=== PATIENT | female | born 1980 | race Caucasian/White ===

== ENCOUNTER → 2018-01-25 09:16 | Outpatient (CLI) | payer OTHER, SELFPAY ==
[2018-01-25 10:13] LABS: Absolute Lymphocyte Count 1.45 X10^3/ul (0.83-4.51); Absolute Neutrophil Count 5.6 X10^3/uL (2.0-7.7); Basophil# 0.05 X10^3/uL; Basophil% 0.6 % (0-1); Eosinophil# 0.17 X10^3/uL; Eosinophils% 2.1 % (0-5); Hematocrit 41.3 % (37-47); Hemoglobin 13.2 g/dl (12.0-15.0); Lymphocyte # 1.45 X10^3/ul (4.0); Lymphocyte % 18.2 % (19-41); Mean Corpuscular Hgb 29.1 pg (27.0-32.0); Mean Corpuscular Volume 91.2 fL (81-99); Mean Platelet Vol. 8.9 fl (6.2-12.0); Monocyte# 0.67 X10^3/uL; Monocyte% 8.4 % (0-10); Neutrophil % 70.6 % (47-70); POSITIVE COUNT NO; POSITIVE DIFFERENTIAL NO; POSITIVE MORPHOLOGY NO; Platelet Count 258 K/mm3 (150-450); RBC Distribution Width CV 12.9 % (11.6-14.6); RBC Distribution Width SD 42.9 fl (35.1-43.9); Red Blood Count 4.53 M/mm3 (4.2-5.4)
[2018-01-25 10:21] LABS: Hemoglobin A1c 5.2 % (4.2-6.3)
[2018-01-25 10:47] LABS: ALB/GLOB Ratio 1.1 RATIO (0.9-2.4); AST(SGOT) 20 U/L (15-37); Alanine Aminotransfer ALT/SGPT 23 U/L (13-56); Albumin, Serum 3.7 g/dL (3.2-5.0); Alkaline Phosphatase 73 U/L (45-117); Anion Gap 5 (5-15); BUN 12 mg/dL (7-18); BUN/Creat Ratio 16.1 RATIO (10-20); Calcium,Total 8.5 mg/dL (8.5-10.1); Chloride 107 mmol/L (98-107); Creatinine, Serum 0.75 mg/dL (0.55-1.02); EST Glomerular Filtration Rate 93 mL/min (>60); Est Glom Filt Rate - Afr Amer 112 mL/min (>60); Globulin 3.5 g/dL (2.2-4.2); Glucose 97 mg/dL (74-106); Potassium 3.6 mmol/L (3.5-5.1); Protein, Total 7.2 g/dL (6.4-8.2); Sodium Level 140 mmol/L (136-145); T4 Free Direct 1.16 ng/dL (0.76-1.46)
[2018-01-31 11:11] LABS: Thyroglobulin RIA 4.6 ng/mL (.); Thyroid Peroxidase AB 62 IU/mL (0-34)
== END ==
PROVIDERS: Family Provider Family Medicine; PCP Family Medicine; Visit Provider Family Medicine
DX: E03.9 Hypothyroidism, unspecified (principal); E28.2 Polycystic ovarian syndrome
CPT/HCPCS: 36415; 80053; 83036; 84432; 84439; 84443; 85025; 86376; 86800

== ENCOUNTER → 2018-02-02 07:57 | Outpatient (CLI) | payer OTHER, SELFPAY ==
--- NOTE | 2018-02-02 08:00 | RAD_ITS ---
STUDY: X-RAY - CERVICAL SPINE REASON FOR EXAM: Female, 37 years old. Neck pain and stiffness. TECHNIQUE: 5 view(s) of the cervical spine were obtained including oblique views. COMPARISON: None FINDINGS: Normal anterior atlantoaxial articulation. Normal odontoid process. There is straightening of the normal cervical lordosis. Normal vertebral bodies and endplates. Normal disc space heights. Normal visualized intervertebral neuroforamina. The soft tissue structures are unremarkable. RAD/Cerv Spine 4 or 5 Views IMPRESSION: Straightening of the normal cervical lordosis. Electronically Signed: Ibrahima Rae MD at 13:34 EDT Tel [phone], Service support ,
== END ==
PROVIDERS: Family Provider Family Medicine; PCP Family Medicine; Visit Provider Family Medicine
DX: M54.12 Radiculopathy, cervical region (principal)
CPT/HCPCS: 72050

== ENCOUNTER → 2018-06-18 08:55 | Outpatient (CLI) | payer OTHER, SELFPAY ==
--- NOTE | 2018-06-18 08:57 | BI_ITS ---
MAMMOGRAPHY - BILATERAL DIAGNOSTIC REASON FOR EXAM: Female, 38 years old. History of left breast lumps. PERTINENT HISTORY: Aunt with breast cancer. TECHNIQUE: Digital bilateral breast west (3D mammographic acquisition) in the CC and MLO projections. 2-D mediolateral oblique (MLO) and craniocaudad (CC) views of both breasts were obtained. CAD: Full Field Digital Mammography with Computer Added Detection was performed. COMPARISON: Comparison is made with prior examination dated June 22, 2017. FINDINGS: Breast Composition: The breasts are extremely dense, which lowers the sensitivity of mammography. There are no dominant masses or suspicious calcifications. No other significant abnormalities are identified. There has been no significant change since the prior study. BI/DIAG MAMM W/CAD, BILAT IMPRESSION: Stable bilateral diagnostic mammogram. With the patient's history of palpable abnormalities in the left breast, correlation with ultrasound is recommended. ASSESSMENT CATEGORY: BIRADS Category 0: Incomplete. Need additional imaging evaluation. A letter regarding these results will be sent to the patient by the facility within 30 days. Approximately 10% of breast cancers are not detected by mammography. A normal mammogram should not delay biopsy of a clinically suspicious abnormality. Electronically Signed: Ibrahima Rae MD at 10:34 EDT Tel [phone], Service support ,
--- NOTE | 2018-06-18 08:58 | US_ITS ---
STUDY: ULTRASOUND BREAST - LEFT REASON FOR EXAM: Female, 38 years old. Palpable lump left breast. TECHNIQUE: Axial and longitudinal images of the LEFT breast were performed with a high resolution ultrasound transducer. COMPARISON: Comparison is made with prior mammogram done earlier today. FINDINGS: LEFT Breast: There is a 4 mm x 4 mm x 12 mm cyst at the 1:00 position of the breast at 3 cm from the nipple. This also evidence of a 3 mm x 3 mm x 2 mm cyst at the 4:00 position of the breast at 2 cm from the nipple. Mildly dilated subareolar ducts. US/Breast Complete Unilateral IMPRESSION: Small cysts are seen in the breast as described. Mildly dilated subareolar ducts. ASSESSMENT CATEGORY: BIRADS Category 2: Benign. A letter regarding these results will be sent to the patient by the facility within 30 days. Electronically Signed: Ibrahima Rae MD at 10:11 EDT Tel [phone], Service support ,
== END ==
PROVIDERS: Family Provider Family Medicine; PCP Family Medicine; Referring Provider Family Medicine; Visit Provider Family Medicine
DX: R92.8 Other abnormal and inconclusive findings on diagnostic imaging of breast (principal)
CPT/HCPCS: 76641; 77062; 77066; G0279

== ENCOUNTER → 2018-06-20 12:29 | Outpatient (CLI) | payer OTHER, SELFPAY ==
--- NOTE | 2018-06-20 12:32 | US_ITS ---
STUDY: THYROID ULTRASOUND REASON FOR EXAM: Female, 38 years old. Abnormal labs. TECHNIQUE: Ultrasound evaluation of the thyroid was performed with real-time and static garcia-scale imaging. COMPARISON: None. FINDINGS: RIGHT LOBE: The right lobe of the thyroid gland measures 5.1 x 1.0 x 1.7 cm. There is a heterogeneous echotexture. There are no demonstrated solid, cystic or complex lesions. LEFT LOBE: The left lobe of the thyroid gland measures 3.8 x 1.3 x 1.2 cm. There is a heterogeneous echotexture. There are no demonstrated solid, cystic or complex lesions. ISTHMUS: The isthmus measures 3 mm . The regional lymph nodes are normal. US/Thyroid IMPRESSION: Heterogeneous thyroid gland with enlargement of the right lobe. No definite nodule identified. Findings suggestive of multinodular goiter. Electronically Signed: Leobardo Vasquez MD at 7:28 EDT , Service support ,
== END ==
PROVIDERS: Family Provider Family Medicine; PCP Family Medicine; Referring Provider Obstetrics & Gynecology Reproductive Endocrinology; Visit Provider Obstetrics & Gynecology Reproductive Endocrinology
DX: E04.1 Nontoxic single thyroid nodule (principal)
CPT/HCPCS: 76536

== ENCOUNTER → 2018-08-14 09:13 | Outpatient (CLI) | payer OTHER, SELFPAY ==
[2018-08-14 11:20] LABS: Thyroid Stim Hormone (TSH) 2.05 uIU/mL (0.358-3.74)
--- OUTSIDE RECORDS SUMMARY | 2018-09-25 22:28 | XMS RPT_ITS ---
:1980 Author Organization [facility] Care Team Providers Name Role Phone Beni Saxena Attending Unavailable Beni Saxean Primary Care Unavailable Beni Saxena Primary Care Unavailable ALANIS CALLEJAS Consulting Unavailable TREVOR YANG Attending Unavailable TREVOR YANG Referring Unavailable Beni Saxena Attending Unavailable Beni Sxaena Referring Unavailable Beni Saxena Primary Care Unavailable Beni Saxena Attending Unavailable Beni Saxena Referring Unavailable Beni Saxena Primary Care Unavailable Beni Saxena Attending Unavailable Beni Saxena Primary Care Unavailable PROBLEMS PROBLEMS DATE TYPE CONDITION / CODE ATTENDING STATUS SOURCE 02/02/2018 Unknown M54.12 - Beni Saxena Active [facility] Radiculopathy, [facility] / M54.12(ICD-10) Repository PROCEDURES PROCEDURES No Procedure Records FoundRESULTS RESULTS THYROID STIM HORMONE Collected: 08/14/2018 Status: F Source: [place] (TSH) 9:14 AM [facility] TYPE CODE TESTS RESULT OUT OF RANGE REFERENCE UNITS LAB L501.9520 0.358-3.74 uIU/mL Normal TSH 2.05 Performed By: #### L501.9520 #### [facility] [address] [facility] [place], [address] THYROID Observed: 06/20/2018 Status: F Source: [place] 12:32 PM [facility] [place] Imaging Services [address] [place] [address] Thyroid MR#: [id number] Acct: [id number] Name: IBAN RIDER Rep #: [id number] : 1980 F 38 From: Leobardo Vasquez PCP: Beni Saxena MD Status: REG CLI Study: Thyroid Date of Exam: 06/20/18 Exam# [id number] Ordering Dr: SHERIN YANG STUDY: THYROID ULTRASOUND REASON FOR EXAM: Female, 38 years old. Abnormal labs. TECHNIQUE: Ultrasound evaluation of the thyroid was performed with real-time and static garcia-scale imaging. COMPARISON: None. FINDINGS: RIGHT LOBE: The right lobe of the thyroid gland measures 5.1 x 1.0 x 1.7 cm. There is a heterogeneous echotexture. There are no demonstrated solid, cystic or complex lesions. LEFT LOBE: The left lobe of the thyroid gland measures 3.8 x 1.3 x 1.2 cm. There is a heterogeneous echotexture. There are no demonstrated solid, cystic or complex lesions. ISTHMUS: The isthmus measures 3 mm . The regional lymph nodes are normal. US/Thyroid IMPRESSION: Heterogeneous thyroid gland with enlargement of the right lobe. No definite nodule identified. Findings suggestive of multinodular goiter. Electronically Signed: Leobardo Vasquez MD at 7:28 EDT , Service support , CC: Beni Saxena MD; SHERIN YANG Assisted Living Associate: Signed BREAST COMPLETE Observed: 06/18/2018 Status: F Source: [place] UNILATERAL 8:59 AM [facility] [place] Imaging Services [address] [place] [address] Breast Complete Unilateral MR#: [id number] Acct: [id number] Name: IBAN RIDER Rep #: [id number] : 1980 F 38 From: Ibrahima Rae MD PCP: Beni Saxena MD Status: REG CLI Study: Breast Complete Unilateral Date of Exam: 06/18/18 Exam# [id number] Ordering Dr: Beni Saxena MD STUDY: ULTRASOUND BREAST - LEFT REASON FOR EXAM: Female, 38 years old. Palpable lump left breast. TECHNIQUE: Axial and longitudinal images of the LEFT breast were performed with a high resolution ultrasound transducer. COMPARISON: Comparison is made with prior mammogram done earlier today. FINDINGS: LEFT Breast: There is a 4 mm x 4 mm x 12 mm cyst at the 1:00 position of the breast at 3 cm from the nipple. This also evidence of a 3 mm x 3 mm x 2 mm cyst at the 4:00 position of the breast at 2 cm from the nipple. Mildly dilated subareolar ducts. US/Breast Complete Unilateral IMPRESSION: Small cysts are seen in the breast as described. Mildly dilated subareolar ducts. ASSESSMENT CATEGORY: BIRADS Category 2: Benign. A letter regarding these results will be sent to the patient by the facility within 30 days. Electronically Signed: Ibrahima Rae MD at 10:11 EDT Tel [phone], Service support , CC: Beni Saxena MD Assisted Living Associate: Signed DIAG MAMM W/CAD, Observed: 06/18/2018 Status: F Source: [facility] [place] 8:59 AM [facility] [place] [address] [place] [address] DIAG MAMM W/CAD, BILAT MR#: [id number] Acct: [id number] Name: IBAN RIDER Rep #: [id number] : 1980 F 38 From: Ibrahima Rae MD PCP: Beni Saxena MD Status: REG CLI Study: DIAG MAMM W/CAD, BILAT Date of Exam: 06/18/18 Exam# [id number] Ordering Dr: Beni Saxena MD MAMMOGRAPHY - BILATERAL DIAGNOSTIC REASON FOR EXAM: Female, 38 years old. History of left breast lumps. PERTINENT HISTORY: Aunt with breast cancer. TECHNIQUE: Digital bilateral breast west (3D mammographic acquisition) in the CC and MLO projections. 2-D mediolateral oblique (MLO) and craniocaudad (CC) views of both breasts were obtained. CAD: Full Field Digital Mammography with Computer Added Detection was performed. COMPARISON: Comparison is made with prior examination dated June 22, 2017. FINDINGS: Breast Composition: The breasts are extremely dense, which lowers the sensitivity of mammography. There are no dominant masses or suspicious calcifications. No other significant abnormalities are identified. There has been no significant change since the prior study. BI/DIAG MAMM W/CAD, BILAT IMPRESSION: Stable bilateral diagnostic mammogram. With the patient's history of palpable abnormalities in the left breast, correlation with ultrasound is recommended. ASSESSMENT CATEGORY: BIRADS Category 0: Incomplete. Need additional imaging evaluation. A letter regarding these results will be sent to the patient by the facility within 30 days. Approximately 10% of breast cancers are not detected by mammography. A normal mammogram should not delay biopsy of a clinically suspicious abnormality. Electronically Signed: Ibrahima Rae MD at 10:34 EDT Tel [phone], Service support , CC: Beni Saxena MD Assisted Living Associate: Signed CERV SPINE 4 OR 5 Observed: 02/02/2018 Status: F Source: [facility] V[facility] 8:00 AM [facility] [place] Imaging Services [address] [place] [address] Cerv Spine 4 or 5 Views MR#: [id number] Acct: [id number] Name: IBAN RIDER Rep #: [id number] : 1980 F 37 From: Ibrahima Rae MD PCP: Beni Saxena MD Status: REG CLI Study: Cerv Spine 4 or 5 Views Date of Exam: 02/02/18 Exam# [id number] Ordering Dr: Beni Saxena MD STUDY: X-RAY - CERVICAL SPINE REASON FOR EXAM: Female, 37 years old. Neck pain and stiffness. TECHNIQUE: 5 view(s) of the cervical spine were obtained including oblique views. COMPARISON: None FINDINGS: Normal anterior atlantoaxial articulation. Normal odontoid process. There is straightening of the normal cervical lordosis. Normal vertebral bodies and endplates. Normal disc space heights. Normal visualized intervertebral neuroforamina. The soft tissue structures are unremarkable. RAD/Cerv Spine 4 or 5 Views IMPRESSION: Straightening of the normal cervical lordosis. Electronically Signed: Ibrahima Rae MD at 13:34 EDT Tel [phone], Service support , CC: Beni Saxena MD Assisted Living Associate: Signed CBC W/DIFF, AUTOMATED Collected: 01/25/2018 Status: F Source: [place] 9:22 AM [facility] [place] Order Comment: Order Date: 01/25/18 Order Info: 0184-1 - CBCD TYPE CODE TESTS RESULT OUT OF RANGE REFERENCE UNITS LAB L100.1000 4.4-11.0 K/mm3 Normal WBC 8.0 LAB L100.1200 4.2-5.4 M/mm3 Normal RBC 4.53 LAB L100.1300 12.0-15.0 g/dl Normal HGB 13.2 LAB L100.1400 37-47 % Normal HCT 41.3 LAB L100.1500 81-99 fL Normal MCV 91.2 LAB L100.1600 27.0-32.0 pg Normal MCH 29.1 LAB L100.1700 32-36 g/gl Normal MCHC 32.0 LAB L100.1810 11.6-14.6 % Normal RDW CV 12.9 LAB L100.1820 35.1-43.9 fl Normal RDW SD 42.9 LAB L100.1900 150-450 K/mm3 Normal PLT 258 LAB L100.2000 6.2-12.0 fl Normal MPV 8.9 LAB L100.2100 47-70 % High NEUT% 70.6 LAB L100.2200 19-41 % Low LY% 18.2 LAB L100.2300 0-10 % Normal MONO% 8.4 LAB L100.2400 0-5 % Normal EO% 2.1 LAB L100.2500 0-1 % Normal BASO% 0.6 LAB L100.2550 0.0-0.9 % Normal IM GRAN % 0.100 Result Comment: IG% - Immature Granulocytes (promyelocytes, myelocytes and metamyelocytes) > 1% indicates that a LEFT SHIFT is Present. LAB L100.2620 2.0-7.7 X10 3/uL Normal Absolute Neut 5.6 LAB L100.2720 0.83-4.51 X10 3/ul Normal Absolute Lymph 1.45 Performed By: #### L100.0100, L501.9985, L500.4050, L501.9520, L506.0400 #### [facility] [address] [place], [address] HEMOGLOBIN A1C Collected: 01/25/2018 Status: F Source: [facility] 9:22 AM [facility] [place] Order Comment: Order Date: 01/25/18 Order Info: 4548-4 - A1C TYPE CODE TESTS RESULT OUT OF RANGE REFERENCE UNITS LAB L501.9985 4.2-6.3 % Normal HGB A1C 5.2 Performed By: #### L100.0100, L501.9985, L500.4050, L501.9520, L506.0400 #### [facility] [address] [place], [address] COMPREHENSIVE METABOLIC Collected: 01/25/2018 Status: F Source: [facility] 9:22 AM [facility] [place] Order Comment: Order Date: 01/25/18 Order Info: [id number] - CMP Order Info: 3016-3 - TSH Order Info: 3024-7 - T4F TYPE CODE TESTS RESULT OUT OF RANGE REFERENCE UNITS LAB L501.0100 74-106 mg/dL Normal GLU 97 Result Comment: Please note revised GLUCOSE reference range effective 2017. LAB L501.1000 7-18 mg/dL Normal BUN 12 LAB L501.1100 0.55-1.02 mg/dL Normal CREAT,SERUM 0.75 Result Comment: The validity of the calculated GFR AND GFRAA in patients over 70 years has not been determined. Clinical correlation is essential. LAB L501.1110 >60 mL/min Normal EST GFR 93 Result Comment: Non- GFR Calc LAB L501.1115 >60 mL/min Normal EST GFR - AA 112 Result Comment: GFR Calc LAB L501.1300 10-20 RATIO Normal BUN/CRE 16.1 LAB L501.1500 6.4-8.2 g/dL T Normal PROT 7.2 LAB L501.1800 3.2-5.0 g/dL Normal ALB 3.7 LAB L501.1950 2.2-4.2 g/dL Normal GLOB 3.5 LAB L501.2000 0.9-2.4 RATIO Normal A/G 1.1 LAB L501.2200 8.5-10.1 mg/dL CA Normal 8.5 LAB L501.4100 15-37 U/L Normal AST 20 LAB L501.4305 45-117 U/L Normal ALK P 73 LAB L501.4405 13-56 U/L Normal ALT 23 LAB L501.4600 0.20-1.00 mg/dL T Normal BILI 0.60 LAB L501.5300 136-145 mmol/L NA Normal 140 LAB L501.5600 3.5-5.1 mmol/L K Normal 3.6 LAB L501.5900 98-107 mmol/L CL Normal 107 LAB L501.6100 21.0-32.0 mmol/L Normal CO2 28.0 LAB L501.6200 5-15 Normal GAP 5 Performed By: #### L100.0100, L501.9985, L500.4050, L501.9520, L506.0400 #### [facility] [address] [place], [place], [address] THYROID STIM HORMONE Collected: 01/25/2018 Status: F Source: [place] (TSH) 9:22 AM [facility] Order Comment: Order Date: 01/25/18 Order Info: [id number] - CMP Order Info: 3016-3 - TSH Order Info: 3024-7 - T4F TYPE CODE TESTS RESULT OUT OF RANGE REFERENCE UNITS LAB L501.9520 0.358-3.74 uIU/mL Normal TSH 1.60 Performed By: #### L100.0100, L501.9985, L500.4050, L501.9520, L506.0400 #### [facility] [address] [place], [place], [address] T4 FREE DIRECT Collected: 01/25/2018 Status: F Source: [place] 9:22 AM [facility] Order Comment: Order Date: 01/25/18 Order Info: 0786-1 - CMP Order Info: 3016-3 - TSH Order Info: 3024-7 - T4F TYPE CODE TESTS RESULT OUT OF RANGE REFERENCE UNITS LAB L506.0400 0.76-1.46 ng/dL Normal T4 FREE 1.16 DIRECT Performed By: #### L100.0100, L501.9985, L500.4050, L501.9520, L506.0400 #### [facility] [place], [address] THYROGLOBULIN W/ANTI-TG Collected: 01/25/2018 Status: F Source: [place] [place] 9:22 AM [facility] [place] TYPE CODE TESTS RESULT OUT OF RANGE REFERENCE UNITS LAB L3300.7025 0.0-0.9 IU/mL High ANTI-TG 5.0 AB Result Comment: Thyroglobulin Antibody measured by [facility] [employer] LAB L3300.7030 . ng/mL Normal TG-NALINI 4.6 Result Comment: Reference Range: Pubertal Children and Adults: <40 According to the National Academy of Clinical Biochemistry, the reference interval for Thyroglobulin (TG) should be related to euthyroid patients and not for patients who underwent thyroidectomy. TG reference intervals for these patients depend on the residual mass of the thyroid tissue left after surgery. Establishing a post-operative baseline is recommended. The assay quantitation limit is 2.0 ng/mL. Performed By: #### L3300.6820, L3300.6900 #### [facility] (refer to report for specific site) refer to report for address and phone number THYROID PEROXIDASE AB Collected: 01/25/2018 Status: F Source: [place] 9:22 AM [facility] [place] TYPE CODE TESTS RESULT OUT OF RANGE REFERENCE UNITS LAB L3300.6900 0-34 IU/mL High TPO AB 62 [phone] Result Comment: Performed at: CB - [facility] [address] [id number] Proctologist: Chuy Young PhD, Phone: [phone] Performed at: [facility] [address] [place] [phone] Proctologist: Keith Ramirez MD, Phone: [phone] Performed By: #### L3300.6820, L3300.6900 #### [facility] (refer to report for specific site) refer to report for address and phone number PROGRESS Observed: 01/15/2018 Status: COMPLETED Source: [place] 8:29 AM [facility] HNO ID: [id number] Author: Mike Newton Service: (none) Author Type: Physician Type: Progress Notes Filed: 01/15/2018 8:36 AM Note Text: Patient here for follow up and to discuss labs. U/S showed normal size ovaries with multiple cysts. DHEA-S 322. Prolactin and TSH normal. Assessment - PCOS with elevated DHEA-S Plan - appointment with Dr. Yang. Mike Newton MD CNOV Observed: 01/15/2018 Status: COMPLETED Source: [place] 8:00 AM [facility] REPOSITORY Office Visit ([place]) IBAN RIDER ([id number]) 1980 F Date Time Provider Department 01/15/18 8:00 AM MIKE NEWTON During your visit today, we recorded the following information about you: Temperature Pulse Blood pressure Weight 97.8 degrees 48/minute 96/48 49.9 kg Height Last Period 1.6 m 01/11/18 Mike Newton MD 01/15/2018 8:36 AM Signed Patient here for follow up and to discuss labs. U/S showed normal size ovaries with multiple cysts. DHEA-S 322. Prolactin and TSH normal. Assessment - PCOS with elevated DHEA-S Plan - appointment with Dr. Yang. Mike Newton MD Referring Provider: SELF [200] Allergies As of Date: 01/15/2018 Noted Allergy Reaction AMOXICILLIN 01/28/2013 2 - Rash Date Reviewed: 01/15/2018 Reviewed by: Mike Newton - Fully Assessed Reason for Visit: Follow Up [171] Cmt: Pt presents for follow up to discuss her test results. Primary Visit Diagnosis:PCOS (polycystic ovarian syndrome) [E28.2] Prescriptions as of 01/15/2018 Sig: NAPROXEN 375 MG TABLET Take 375 mg by mouth as neede* CYCLOBENZAPRINE 10 MG TABLET Take 10 mg by mouth once ron* CENTRUM ULTRA WOMEN'S ORAL Take by mouth once daily. PRESERVISION AREDS ORAL Take by mouth as needed. CHOLECALCIFEROL (VITAMIN D3) * Take by mouth. CALCIUM ORAL Take by mouth. MAGNESIUM SULFATE 100 MG CAPS* Take by mouth. LORAZEPAM 0.5 MG TABLET Take by mouth three times da* LEVOTHYROXINE 75 MCG TABLET Take 75 mcg by mouth once palma* Problem List As Of Date 01/15/2018 Noted Resolved Hypothyroid [E03.9] INVALID FOR* Hirsutism [L68.0] INVALID FOR* Acne [L70.9] INVALID FOR* Breast mass [N63.0] INVALID FOR*06/17/2014 Lump or mass in breast [N63.0] INVALID FOR*06/17/2014 Vitamin D deficiency [E55.9] INVALID FOR* Left breast mass [N63.20] INVALID FOR* Medications Discontinued During This Encounter levothyroxine (SYNTHROID) 75 mcg tab* 06/08/2017 01/15/2018 Class: Historical Med Route: ORAL Sig: Take 75 mcg by mouth once daily. Disc: Reason for discontinue is not on file. LORazepam (ATIVAN) 0.5 mg tab 11/11/2016 01/15/2018 Class: Historical Med Route: ORAL Sig: Take 0.5 mg by mouth. Disc: Reason for discontinue is not on file. Follow-up and Disposition History Recorded Encounter Status:Closed by MIKE NEWTON MD on 01/15/18 US FEMALE PELVIS Observed: 01/05/2018 Status: F Source: [facility] COMPLE[facility] 8:56 AM HEALTH SYSTEM REPOSITORY Performed at [facility] APPROVED BY: Janny Emerson MD EXAMINATION: TRANSVAGINAL AND LIMITED TRANSABDOMINAL PELVIC ULTRASOUND HISTORY: Patient being evaluated for possible polycystic ovary syndrome. TECHNIQUE: Sonography of the pelvis was performed by transvaginal and transabdominal (limited) techniques. Images were obtained and stored in a permanent archive. MQ: UFP_1 COMPARISON: None RESULT: Uterus size: 8.0 x 5.0 x 5.0 cm -Orientation: Retroflexed -Myometrium: Normal sonographic appearance. -Endometrial echo complex: 1.5 cm -Cervix: normal Right ovary: 4.1 x 2.9 x 2.2 cm Left ovary: 4.4 x 2.6 x 1.9 cm Both ovaries demonstrate multiple small follicles throughout. The finding is nonspecific but can be seen in the setting of polycystic ovary syndrome. Free fluid: No significant. IMPRESSION: Multiple small follicles noted in both ovaries. Given the overall appearance, although not diagnostic, this can be seen in the setting of polycystic ovaries. Correlate clinically. Retroflexed uterus. Pelvis free fluid: IMPRESSION: NORMAL SONOGRAPHIC APPEARANCE OF THE FEMALE PELVIS. US TRANSVAGINAL Observed: 01/05/2018 Status: F Source: [facility] 8:56 AM HEALTH SYSTEM REPOSITORY Performed at [facility] APPROVED BY: Janny Emerson MD EXAMINATION: TRANSVAGINAL AND LIMITED TRANSABDOMINAL PELVIC ULTRASOUND HISTORY: Patient being evaluated for possible polycystic ovary syndrome. TECHNIQUE: Sonography of the pelvis was performed by transvaginal and transabdominal (limited) techniques. Images were obtained and stored in a permanent archive. MQ: UFP_1 COMPARISON: None RESULT: Uterus size: 8.0 x 5.0 x 5.0 cm -Orientation: Retroflexed -Myometrium: Normal sonographic appearance. -Endometrial echo complex: 1.5 cm -Cervix: normal Right ovary: 4.1 x 2.9 x 2.2 cm Left ovary: 4.4 x 2.6 x 1.9 cm Both ovaries demonstrate multiple small follicles throughout. The finding is nonspecific but can be seen in the setting of polycystic ovary syndrome. Free fluid: No significant. IMPRESSION: Multiple small follicles noted in both ovaries. Given the overall appearance, although not diagnostic, this can be seen in the setting of polycystic ovaries. Correlate clinically. Retroflexed uterus. Pelvis free fluid: IMPRESSION: NORMAL SONOGRAPHIC APPEARANCE OF THE FEMALE PELVIS. PROGRESS Observed: 01/01/2018 Status: COMPLETED Source: [place] 10:29 AM [facility] HNO ID: [id number] Author: Mike Newton Service: (none) Author Type: Physician Type: Progress Notes Filed: 01/01/2018 10:32 AM Note Text: Patient here for one episode of intermenstrual spotting. Prolactin - normal. DHEA still elevated at 322. TSH - normal. Pap normal except for BV. Discussed results with patient. 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 Mike Newton MD CNOV Observed: 01/01/2018 Status: COMPLETED Source: [place] 9:45 AM [facility] REPOS[facility]ORY Office Visit ([place]) IBAN RIDER ([id number]) 1980 F Date Time Provider Department 01/01/18 9:45 AM MIKE NEWTON During your visit today, we recorded the following information about you: Temperature Pulse Blood pressure Weight 97.3 degrees 57/minute 103/65 49.9 kg Height 1.6 m Mike Newton MD 01/01/2018 10:32 AM Signed Patient here for one episode of intermenstrual spotting. Prolactin - normal. DHEA still elevated at 322. TSH - normal. Pap normal except for BV. Discussed results with patient. 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 Mike Newton MD Referring Provider: SELF [200] Allergies As of Date: 01/01/2018 Noted Allergy Reaction AMOXICILLIN 01/28/2013 2 - Rash Date Reviewed: 01/01/2018 Reviewed by: Mike Newton - Fully Assessed Reason for Visit: Follow Up [171] Cmt: possible vaginal spotting. Spotting started Monday and has been sporadic since.. Primary Visit Diagnosis:History of PCOS [Z87.42] Order(s):US FEMALE PELVIS TRANSABD COMPLETE [4407016] Order #: [id number] FUTURE Prescriptions as of 01/01/2018 Sig: NAPROXEN 375 MG TABLET Take 375 mg by mouth as neede* CYCLOBENZAPRINE 10 MG TABLET Take 10 mg by mouth once ron* CENTRUM ULTRA WOMEN'S ORAL Take by mouth once daily. PRESERVISION AREDS ORAL Take by mouth as needed. CHOLECALCIFEROL (VITAMIN D3) * Take by mouth. CALCIUM ORAL Take by mouth. MAGNESIUM SULFATE 100 MG CAPS* Take by mouth. LORAZEPAM 0.5 MG TABLET Take by mouth three times da* LEVOTHYROXINE 75 MCG TABLET Take 75 mcg by mouth once palma* Problem List As Of Date 01/01/2018 Noted Resolved Hypothyroid [E03.9] INVALID FOR* Hirsutism [L68.0] INVALID FOR* Acne [L70.9] INVALID FOR* Breast mass [N63.0] INVALID FOR*06/17/2014 Lump or mass in breast [N63.0] INVALID FOR*06/17/2014 Vitamin D deficiency [E55.9] INVALID FOR* Left breast mass [N63.20] INVALID FOR* Follow-up and Disposition History Recorded Encounter Status:Closed by MIKE NEWTON MD on 01/01/18 PROLACTIN Collected: 12/25/2017 Status: F Source: [facility] 9:52 AM HEALTH SYSTEM REPOSITORY TYPE CODE TESTS RESULT OUT OF REFERENCE UNITS RANGE LAB PROL2(LOIN ng/mL C) Prolactin 12.2 Result Comment: Non 2.8 to 29.2 9.7 to 208.5 Postmenopausal 1.8 to 20.3 Males: 2.1 to 17.7 Performed By: #### PROL2 #### [place] [address] DHEA-S Collected: 12/25/2017 Status: F Source: [facility] 9:52 AM HEALTH SYSTEM REPOSITORY TYPE CODE TESTS RESULT OUT OF RANGE REFERENCE UNITS LAB DHESX(LOINC ) DHEA-S SEE BELOW Result Comment: DHEA-S 322.3 60.9-337.0 ug/dL Reference ranges are age and gender specific. For additional information, reference range tables can be found in the laboratory test directory. The normal values are based on the following source: Dehydroepiandrosterone sulfate (DHEA S) [package insert V 17.0 Setswana]. [facility], [place], [place]: April 2013. Performing Laboratory: [facility] [address] [place] [address] Performed By: #### DHESX #### [place] [address] TSH Collected: 12/25/2017 Status: F Source: [facility] 9:51 AM HEALTH SYSTEM REPOSITORY TYPE CODE TESTS RESULT OUT OF RANGE REFERENCE UNITS LAB LTSH(LOINC) 0.34-4.82 uIU/mL TSH 1.39 Performed By: #### LTSH #### [place] [address] HISTORY PHYSICAL Observed: 12/25/2017 Status: COMPLETED Source: [place] 9:10 AM [facility] REPOSITORY HNO ID: [id number] Author: Mike Lu Pap Service: (none) Author Type: Physician Type: HANDP Filed: 12/25/2017 9:19 AM Note Text: Iban Rider is a 37 year old female here for a well woman exam. . Thinking of donor insemination for . Not sexually active at present. PMHx of PCO, hirsutism, galactorrhea, elevated prolactin and DHEA is past. On synthroid. Periods regular every month. Long discussion regarding these issues and possibility of donor insemination for . At present, will repeat DHEA, TSH and prolactin. Patient to start BBT and return to office in 2 months to discuss. PMH - breast biopsy - benign. Had ultrasound in June which showed stable cysts left breast. Due for repeat in June. ALLERGIES Allergen Reactions - Amoxicillin Rash Current Outpatient Prescriptions: MULTIVITAMIN/IRON/FOLIC ACID (CENTRUM ULTRA WOMEN'S ORAL) Take by mouth once daily. VIT A/VIT C/VIT E/ZINC/COPPER (PRESERVISION AREDS ORAL) Take by mouth as needed. Cholecalciferol, Vitamin D3, 2,000 unit cap Take by mouth. CALCIUM ORAL Take by mouth. magnesium sulfate 100 mg cap Take by mouth. LORazepam (ATIVAN) 0.5 mg tab Take by mouth three times daily as needed. levothyroxine (LEVOTHROID) 75 mcg tablet Take 75 mcg by mouth once daily. No current facility-administered medications for this visit. 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 [employer] Social History Main Topics Smoking status: Never Smoker Smokeless status: Never Used Alcohol use: No Drug use: No Sexual activity: No Other Topics Concern Self-Exams Yes FAMILY HISTORY Problem Relation Age of Onset - Thyroid Paternal Aunt - Ischemic Heart Disease Father - Hypertension Father - Lipids Father - Cancer Paternal Grandfather prostate - Cancer Paternal Uncle skin - Breast Cancer Maternal Grandmother - Breast Cancer Sister Review of Symptoms General - well developed, well nourished female in no acute distress 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 Physical Exam General: Well nourished, well developed with no obvious deformities.Ge HEENT: Without thyromegaly. Cardiovascular: Rate regular without murmur. Pulmonary: Clear GI: No palpable hepatosplenomegaly Breast: Right - without masses - left dense with cystic changes LUQ unchanged according to patient GERIATRIC NURSING ASSISTANT: Vulva - normal, hirsutism noted, Vagina - normal, Pap done, uterus midplane, normal size, adnexa neg. ASSESSMENT/PLAN: 1. Women's annual routine gynecological examination - ICD9: V72.31, ICD10: Z01.419 (primary diagnosis) - Completed pelvic and breast exam - Encouraged monthly BSE - Follow up for annual exam in one year. 2. Galactorrhea of both breasts - ICD9: 611.6, ICD10: N64.3 - PROLACTIN BLD 3. History of PCOS - ICD9: V13.29, ICD10: Z87.42 - DHEA-S BLD 4. Hypothyroidism, acquired - ICD9: 244.9, ICD10: E03.9 - Instructed patient on importance of taking on an empty stomach either first thing in the morning or at bedtime. - TSH BLD 5. Hirsutism - ICD9: 704.1, ICD10: L68.0 DHEA 6. Fibrocystic breast changes, left - ICD9: 610.1, ICD10: N60.12 7. Encounter for Papanicolaou smear for cervical cancer screening - ICD9: V76.2, ICD10: Z12.4 - Completed pelvic and breast exam - Encouraged monthly BSE - Follow up for annual exam in one year. - PAP, CYTO GERIATRIC NURSING ASSISTANT Mike Newton MD CNOV Observed: 12/25/2017 Status: COMPLETED Source: [facility] 8:15 AM [facility] REPOSITORY Office Visit ([place]) IBAN RIDER ([id number]) 1980 F Date Time Provider Department 12/25/17 8:15 AM MIKE NEWTON During your visit today, we recorded the following information about you: Temperature Pulse Blood pressure Weight 97.9 degrees 55/minute 105/65 49.9 kg Height Last Period 1.6 m 12/11/17 Mike Newton MD 12/25/2017 9:19 AM Signed Iban Rider is a 37 year old female here for a well woman exam. . Thinking of donor insemination for . Not sexually active at present. PMHx of PCO, hirsutism, galactorrhea, elevated prolactin and DHEA is past. On synthroid. Periods regular every month. Long discussion regarding these issues and possibility of donor insemination for . At present, will repeat DHEA, TSH and prolactin. Patient to start BBT and return to office in 2 months to discuss. PMH - breast biopsy - benign. Had ultrasound in June which showed stable cysts left breast. Due for repeat in June. ALLERGIES Allergen Reactions - Amoxicillin Rash Current Outpatient Prescriptions: MULTIVITAMIN/IRON/FOLIC ACID (CENTRUM ULTRA WOMEN'S ORAL) Take by mouth once daily. VIT A/VIT C/VIT E/ZINC/COPPER (PRESERVISION AREDS ORAL) Take by mouth as needed. Cholecalciferol, Vitamin D3, 2,000 unit cap Take by mouth. CALCIUM ORAL Take by mouth. magnesium sulfate 100 mg cap Take by mouth. LORazepam (ATIVAN) 0.5 mg tab Take by mouth three times daily as needed. levothyroxine (LEVOTHROID) 75 mcg tablet Take 75 mcg by mouth once daily. No current facility-administered medications for this visit. 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 [employer] Social History Main Topics Smoking status: Never Smoker Smokeless status: Never Used Alcohol use: No Drug use: No Sexual activity: No Other Topics Concern Self-Exams Yes FAMILY HISTORY Problem Relation Age of Onset - Thyroid Paternal Aunt - Ischemic Heart Disease Father - Hypertension Father - Lipids Father - Cancer Paternal Grandfather prostate - Cancer Paternal Uncle skin - Breast Cancer Maternal Grandmother - Breast Cancer Sister Review of Symptoms General - well developed, well nourished female in no acute distress GERIATRIC NURSING ASSISTANT - Periods regular every month with pain, no dyspareunia OBSTETRICAL - 0 Para 0 - no dysuria, frequency, stress or urgency incontinence Objective BP 105/65 Pulse 55 Temp (Src) 97.9 (Oral) Ht 5' 3ANDquot; (1.60m) Wt 110 lb (49.9kg) SpO2 99% LMP 12/11/2017 BMI 19.49 kg/(m2). Physical Exam General: Well nourished, well developed with no obvious deformities.Ge HEENT: Without thyromegaly. Cardiovascular: Rate regular without murmur. Pulmonary: Clear GI: No palpable hepatosplenomegaly Breast: Right - without masses - left dense with cystic changes LUQ unchanged according to patient GERIATRIC NURSING ASSISTANT: Vulva - normal, hirsutism noted, Vagina - normal, Pap done, uterus midplane, normal size, adnexa neg. ASSESSMENT/PLAN: 1. Women's annual routine gynecological examination - ICD9: V72.31, ICD10: Z01.419 (primary diagnosis) - Completed pelvic and breast exam - Encouraged monthly BSE - Follow up for annual exam in one year. 2. Galactorrhea of both breasts - ICD9: 611.6, ICD10: N64.3 - PROLACTIN BLD 3. History of PCOS - ICD9: V13.29, ICD10: Z87.42 - DHEA-S BLD 4. Hypothyroidism, acquired - ICD9: 244.9, ICD10: E03.9 - Instructed patient on importance of taking on an empty stomach either first thing in the morning or at bedtime. - TSH BLD 5. Hirsutism - ICD9: 704.1, ICD10: L68.0 DHEA 6. Fibrocystic breast changes, left - ICD9: 610.1, ICD10: N60.12 7. Encounter for Papanicolaou smear for cervical cancer screening - ICD9: V76.2, ICD10: Z12.4 - Completed pelvic and breast exam - Encouraged monthly BSE - Follow up for annual exam in one year. - PAP, CYTO GERIATRIC NURSING ASSISTANT Mike Newton MD Referring Provider: SELF [[id number]] Allergies As of Date: 12/25/2017 Noted Allergy Reaction AMOXICILLIN 01/28/2013 2 - Rash Date Reviewed: 12/25/2017 Reviewed by: Mike Newton - Fully Assessed Reason for Visit: New Patient [172] Cmt: Pt presents for an annual exam. She says that she has felt some lumps in her left breast. Primary Visit Diagnosis:Women's annual routine gynecological examination [Z01.419] Other Visit Diagnoses:Galactorrhea of both breasts [N64.3] History of PCOS [Z87.42] Hypothyroidism, acquired [E03.9] Hirsutism [L68.0] Fibrocystic breast changes, left [N60.12] Encounter for Papanicolaou smear for cervical cancer screening [Z12.4] Order(s):PROLACTIN BLD [SQPROL] Order #: [id number] FUTURE DHEA-S BLD [SQDHEAS] Order #: [id number] FUTURE TSH BLD [SQTSH] Order #: [id number] FUTURE PAP, CYTO GERIATRIC NURSING ASSISTANT [[id number]] Order #: [id number] Prescriptions as of 12/25/2017 Sig: CENTRUM ULTRA WOMEN'S ORAL Take by mouth once daily. PRESERVISION AREDS ORAL Take by mouth as needed. CHOLECALCIFEROL (VITAMIN D3) * Take by mouth. CALCIUM ORAL Take by mouth. MAGNESIUM SULFATE 100 MG CAPS* Take by mouth. LORAZEPAM 0.5 MG TABLET Take by mouth three times da* LEVOTHYROXINE 75 MCG TABLET Take 75 mcg by mouth once palma* Problem List As Of Date 12/25/2017 Noted Resolved Hypothyroid [E03.9] INVALID FOR* Hirsutism [L68.0] INVALID FOR* Acne [L70.9] INVALID FOR* Breast mass [N63.0] INVALID FOR*06/17/2014 Lump or mass in breast [N63.0] INVALID FOR*06/17/2014 Vitamin D deficiency [E55.9] INVALID FOR* Left breast mass [N63.20] INVALID FOR* Disposition: Return in about 2 months (around 02/24/2018). Follow-up and Disposition History Recorded Encounter Status:Closed by MIKE NEWTON MD on 12/25/17 PAP,CYTO GERIATRIC NURSING ASSISTANT Observed: 12/25/2017 Status: F Source: [facility] 12:00 AM [facility] RE[facility]ITORY Test performed at [place] [address] NAME: IBAN RIDER REQUESTING: MIKE NEWTON MD SPECIMEN: TP CX REFLEX TO HPV ASCUS/ANDI Relevant History: LMP: 12/11/2017 SPECIMEN ADEQUACY SATISFACTORY FOR EVALUATION. ENDOCERVICAL/TRANSFORMATION ZONE COMPONENTS ABSENT. GENERAL CATEGORIZATION NEGATIVE FOR INTRAEPITHELIAL LESION OR MALIGNANCY. INTERPRETATION/RESULT SHIFT IN RUPERTO SUGGESTIVE OF BACTERIAL VAGINOSIS. Electronically signed: 12/28/2017 Screened by: VEGA TAPIA(ASCP) Signed Out by: VEGA TAPIA(ASCP) The Pap test serves as a screening tool for early detection of cervical cancer. The Pap test does not represent a final diagnostic test for cervical cancer. Furthermore, the Pap test was not designed to screen for other malignancies (endometrial, ovarian cancer, etc....). False negatives and false positives have occurred. If clinically indicated, further patient evaluation is recommended. Printed on: December 28, 2017 Page 1 of 1 Performed By: #### CYTOP #### [place] [address] ALLERGIES ALLERGIES No Allergies Records FoundENCOUNTERS ENCOUNTERS ADMIT/DISCHARGE ACCOUNT ADMITTING ENCOUNTER LOCATION SOURCE NUMBER CLASS 08/14/2018 [id number] Ambulatory [place] [facility] ing:MFPLAB Repository 06/20/2018 [id number] [place] [facility] ing:US Repository 06/18/2018 [id number] Ambulatory [place] 6 [facility] ing:OPBI Repository 02/02/2018 [id number] Ambulatory [facility] [facility] ing:HPRAD Repository 01/25/2018 [id number] Ambulatory Brand[place] [facility] ing:MFPLAB Repository PAYERS PAYERS ENCOUNTER GUARANTOR PAYER SUBSCRIBER SOURCE 08/14/2018 IBAN Reese Primary IBAN Gipson [id number] Insurance:CARESOURCE CIOLEKDOB: [address] [facility] [id number] Number: Repository [id number]: [phone] [id number] [phone] (HP) Date:[id number] [address] [address]PU: 08/14/2018 Secondary NOT GIVENUNK Brandan Insurance:SELF PAY [facility] Number: Effective Repository Date:2018-08-14 06/20/2018 IBAN Reese [facility] IBAN Gipson [id number] Insurance:CARESOURCE CIOLEKDOB: Community [address] JUST FOR [facility] [id number] Number: Repository [id number]: [phone] [id number] [phone] (HP) Date:[id number] [address] [address]MF: 06/20/2018 Secondary NOT GIVENUNK Brandan Insurance:SELF PAY [facility] Number: Effective Repository Date:2018-06-19 06/18/2018 IBAN Reese [facility] IBAN Gipson [id number] Insurance:CARESOURCE CIOLEKDOB: [address] JUST FOR [facility] [id number] Number: Repository [id number]: [phone] [id number] [phone] (HP) Date:[id number] [address] [address]UK: 06/18/2018 Secondary NOT GIVENUNK Brandan Insurance[facility]: Effective Repository Date:2018-05-03 02/02/2018 IBAN Reese [facility] IBAN Gipson [id number] Insurance:CARESOURCE CIOLEKDOB: [address] JUST [facility] [id number] [address] Number: Repository [id number]: [phone] [id number] [phone] () Date:[id number] [address] [place] [id number]: 02/02/2018 Secondary NOT GIVENUNK Brandan Insurance:SELF PAY [facility] Number: Effective Repository Date:2018-02-01 01/25/2018 Iban Reese [facility] Iban Gipson [id number] Insurance:CARESOURCE CiolekDOB: Community [address] JUST [facility] [id number] [address] Number: Repository [id number]: [phone] [id number] [phone] () Date:[id number] [address] [place] [address]JJ: 01/25/2018 Secondary NOT GIVENUNK Brandan Insurance:SELF PAY [facility] Number: Effective Repository Date:2018-01-25
== END ==
PROVIDERS: Family Provider Family Medicine; PCP Family Medicine; Visit Provider Family Medicine
DX: Z00.00 Encounter for general adult medical examination without abnormal findings (principal)
CPT/HCPCS: 36415; 84443

== ENCOUNTER → 2018-11-26 14:00 | Outpatient (CLI) | payer OTHER, SELFPAY ==
--- NOTE | 2018-11-26 14:03 | BI_ITS ---
MAMMOGRAPHY - BILATERAL DIAGNOSTIC REASON FOR EXAM: Female, 38 years old. History of bilateral breast lumps. PERTINENT HISTORY: Aunt with breast cancer. TECHNIQUE: Digital bilateral breast west (3D mammographic acquisition) in the CC and MLO projections. 2-D mediolateral oblique (MLO) and craniocaudad (CC) views of both breasts were obtained. CAD: Full Field Digital Mammography with Computer Added Detection was performed. COMPARISON: Comparison is made with prior mammogram dated June 18, 2018. FINDINGS: Breast Composition: The breasts are extremely dense, which lowers the sensitivity of mammography. There are no dominant masses or suspicious calcifications. No other significant abnormalities are identified. There has been no significant change since the prior study. BI/DIAG MAMM W/CAD, BILAT IMPRESSION: Stable bilateral diagnostic mammogram. With the patient's history of bilateral breast lumps, correlation with ultrasound is recommended. ASSESSMENT CATEGORY: BIRADS Category 0: Incomplete. Need additional imaging evaluation. A letter regarding these results will be sent to the patient by the facility within 30 days. Approximately 10% of breast cancers are not detected by mammography. A normal mammogram should not delay biopsy of a clinically suspicious abnormality. Electronically Signed: Ibrahima Rae, at 8:47 EDT , Service support ,
--- NOTE | 2018-11-26 14:33 | US_ITS ---
STUDY: ULTRASOUND BREAST - RIGHT REASON FOR EXAM: Female, 38 years old. Palpable lump in the right breast. TECHNIQUE: Axial and longitudinal images of the RIGHT breast were performed with a high resolution ultrasound transducer. COMPARISON: Comparison is made with prior mammogram done earlier in the day. FINDINGS: RIGHT Breast: There is evidence of dense fibroglandular tissue. There is a 0.8 cm x 1.2 cm x 0.5 cm cyst at the 2:00 position breast at 3 cm from the nipple. A thin septation is seen within. There is also evidence of a 0.9 cm x 1.1 cm x 0.3 cm cyst at the 12:00 position of breast at 1 cm from nipple. Low-level echoes are seen within the. This may represent a hemorrhagic cyst. IMPRESSION: 2 cysts are seen as described. Routine mammographic follow-up is recommended. ASSESSMENT CATEGORY: BIRADS Category 2: Benign. A letter regarding these results will be sent to the patient by the facility within 30 days. Electronically Signed: Ibrahima Butch, at 8:49 EDT , Service support , STUDY: ULTRASOUND BREAST - LEFT REASON FOR EXAM: Female, 38 years old. Palpable lump left breast. TECHNIQUE: Axial and longitudinal images of the LEFT breast were performed with a high resolution ultrasound transducer. COMPARISON: Comparison is made with prior mammogram done earlier in the day as well as prior ultrasound of the left breast dated June 18, 2018. FINDINGS: LEFT Breast: This is a 4 mm x 4 mm x 2 mm cyst at the 4:00 position of breast at 2 cm from nipple. This is unchanged. There is also evidence of dilated subareolar ducts. US/Breast Limited Unilateral IMPRESSION: 4 mm x 4 mm x 2 mm cyst at the 4:00 position the breast at 2 sons from nipple. This is unchanged. Mildly dilated subareolar ducts. ASSESSMENT CATEGORY: BIRADS Category 2: Benign. A letter regarding these results will be sent to the patient by the facility within 30 days. Electronically Signed: Ibrahima Rae, at 8:50 EDT , Service support ,
== END ==
PROVIDERS: Family Provider Family Medicine; PCP Family Medicine; Referring Provider Family Medicine; Visit Provider Family Medicine
DX: N63.11 Unspecified lump in the right breast, upper outer quadrant (principal)
CPT/HCPCS: 76642; 77062; 77066; G0279

== ENCOUNTER → 2019-02-12 08:52 | Outpatient (CLI) | payer OTHER, SELFPAY ==
[2019-02-12 10:52] LABS: Thyroid Stim Hormone (TSH) 1.76 uIU/mL (0.358-3.74)
== END ==
PROVIDERS: Family Provider Family Medicine; PCP Family Medicine; Referring Provider Family Medicine; Visit Provider Family Medicine
DX: E03.8 Other specified hypothyroidism (principal)
CPT/HCPCS: 36415; 84439; 84443

== ENCOUNTER → 2019-08-29 09:03 | Outpatient (CLI) | payer OTHER, SELFPAY ==
[2019-08-29 11:04] LABS: T4 Free Direct 1.23 ng/dL (0.76-1.46)
== END ==
PROVIDERS: Family Provider Family Medicine; PCP Family Medicine; Referring Provider Family Medicine; Visit Provider Family Medicine
DX: E03.8 Other specified hypothyroidism (principal)
CPT/HCPCS: 36415; 84439; 84443

== ENCOUNTER → 2019-12-30 09:01 | Outpatient (CLI) | payer OTHER, SELFPAY ==
[2019-12-30 09:59] LABS: Absolute Lymphocyte Count 2.58 X10^3/uL (0.83-4.51); Absolute Neutrophil Count 3.1 X10^3/uL (2.0-7.7); Basophil# 0.09 X10^3/uL; Basophil% 1.3 % (0-1); Eosinophil# 0.14 X10^3/uL; Eosinophils% 2.1 % (0-5); Hematocrit 41.2 % (37-47); Hemoglobin 13.2 g/dL (12.0-15.0); Lymphocyte # 2.58 X10^3/ul (4.0); Lymphocyte % 38.6 % (19-41); Mean Corpuscular Hgb 29.7 pg (27.0-32.0); Mean Corpuscular Volume 92.6 fL (81-99); Mean Platelet Vol. 9.6 fl (6.2-12.0); Monocyte# 0.75 X10^3/uL; Monocyte% 11.2 % (0-10); NRBC Flagged by Analyzer 0 % (0-5); Neutrophil % 46.5 % (47-70); Platelet Count 262 K/mm3 (150-450); RBC Distribution Width CV 12.7 % (11.6-14.6); Red Blood Count 4.45 M/mm3 (4.2-5.4); White Blood Count 6.7 K/mm3 (4.4-11.0)
[2019-12-30 10:14] LABS: ALB/GLOB Ratio 1.1 RATIO (0.9-2.4); AST(SGOT) 29 U/L (15-37); Alanine Aminotransfer ALT/SGPT 35 U/L (13-56); Albumin, Serum 3.9 g/dL (3.2-5.0); Alkaline Phosphatase 74 U/L (45-117); Anion Gap 6 (5-15); BUN 13 mg/dL (7-18); BUN/Creat Ratio 18.5 RATIO (10-20); Calcium,Total 8.3 mg/dL (8.5-10.1); Chloride 105 mmol/L (98-107); Cholesterol 124 mg/dL (200); EST Glomerular Filtration Rate 99 mL/min (>60); Est Glom Filt Rate - Afr Amer 119 mL/min (>60); Globulin 3.4 g/dL (2.2-4.2); Glucose 91 mg/dL (74-106); High Density Lipoprotein 57 mg/dL; Potassium 3.5 mmol/L (3.5-5.1); Protein, Total 7.3 g/dL (6.4-8.2); Sodium Level 137 mmol/L (136-145); Thyroid Stim Hormone (TSH) 2.76 uIU/mL (0.358-3.74); Triglycerides 56 mg/dL; Very Low Density Lipoprotein 11 mg/dL (5-40)
== END ==
PROVIDERS: PCP Family Medicine; Referring Provider Family Medicine; Visit Provider Family Medicine
DX: Z00.00 Encounter for general adult medical examination without abnormal findings (principal); E03.9 Hypothyroidism, unspecified
CPT/HCPCS: 36415; 80053; 80061; 84443; 85025

== ENCOUNTER → 2019-12-30 09:20 | Outpatient (CLI) | payer OTHER, SELFPAY ==
--- NOTE | 2019-12-30 09:35 | BI_ITS ---
MAMMOGRAPHY - BILATERAL DIAGNOSTIC REASON FOR EXAM: Female, 39 years old. Left breast lump. PERTINENT HISTORY: Aunt with breast cancer. TECHNIQUE: Digital bilateral breast west (3D mammographic acquisition) in the CC and MLO projections. 2-D mediolateral oblique (MLO) and craniocaudad (CC) views of both breasts were obtained. CAD: Full Field Digital Mammography with Computer Added Detection was performed. COMPARISON: Comparison is made with prior study dated November 26, 2018 June 18, 2018. FINDINGS: Breast Composition: The breasts are extremely dense, which lowers the sensitivity of mammography. There are no dominant masses or suspicious calcifications. No other significant abnormalities are identified. There has been no significant change since the prior study. BI/DIAG MAMM W/CAD, BILAT IMPRESSION: Stable bilateral diagnostic mammogram. With the patient''s history of a palpable lump in the left breast, correlation with ultrasound is recommended. ASSESSMENT CATEGORY: BIRADS Category 0: Incomplete. Need additional imaging evaluation. A letter regarding these results will be sent to the patient by the facility within 30 days. Approximately 10% of breast cancers are not detected by mammography. A normal mammogram should not delay biopsy of a clinically suspicious abnormality. Electronically Signed: Ibrahima Rae, at 12:32 EDT , Service support ,
--- NOTE | 2019-12-30 10:40 | US_ITS ---
STUDY: ULTRASOUND BREAST - LEFT REASON FOR EXAM: Female, 39 years old. Palpable lump left breast. TECHNIQUE: Axial and longitudinal images of the LEFT breast were performed with a high resolution ultrasound transducer. # OF IMAGES: 11 COMPARISON: Comparison is made with prior mammogram done earlier in the day as well as prior ultrasound of the left breast dated November 26, 2018. FINDINGS: LEFT Breast: Stable 4 mm x 5 mm x 2 mm cyst at the 4:00 position of the breast at 2 cm from the nipple. Mild degree of dilated subareolar ducts. US/Breast Limited Unilateral IMPRESSION: 4 mm x 5 mm x 2 mm cyst at the 4:00 position of the breast at 2 cm from nipple. Mildly dilated subareolar ducts. There has been no change. ASSESSMENT CATEGORY: BIRADS Category 2: Benign. A letter regarding these results will be sent to the patient by the facility within 30 days. Electronically Signed: Ibrahima Rae, at 12:24 EDT , Service support ,
== END ==
PROVIDERS: PCP Family Medicine; Referring Provider Family Medicine; Visit Provider Family Medicine
DX: R92.8 Other abnormal and inconclusive findings on diagnostic imaging of breast (principal); Z80.3 Family history of malignant neoplasm of breast
CPT/HCPCS: 76642; 77062; 77066; G0279

== ENCOUNTER → 2020-06-22 08:13 | Outpatient (CLI) | payer OTHER, SELFPAY ==
[2020-06-22 10:22] LABS: T4 Free Direct 1.16 ng/dL (0.76-1.46); Thyroid Stim Hormone (TSH) 2.86 uIU/mL (0.358-3.74)
== END ==
PROVIDERS: PCP Family Medicine; Visit Provider Family Medicine
DX: E03.8 Other specified hypothyroidism (principal)
CPT/HCPCS: 36415; 84439; 84443

== ENCOUNTER → 2020-07-14 15:46 | Outpatient (CLI) | payer OTHER, SELFPAY | PROVIDERS: PCP Family Medicine; Referring Provider Family Medicine; Visit Provider Family Medicine | DX: N39.0 Urinary tract infection, site not specified (principal) | CPT/HCPCS: 87086; 87088 ==

== ENCOUNTER → 2020-09-09 06:39 | Outpatient (CLI) | payer OTHER, SELFPAY ==
--- NOTE | 2020-09-09 06:52 | CT_ITS ---
STUDY: CT ABDOMEN AND PELVIS WITH AND WITHOUT CONTRAST REASON FOR EXAM: Female, 40 years old. Gross hematuria occasionally, ? urocele. Denies pain or urinary problems. No prior surgery. CT Urogram. RADIATION DOSAGE (If Supplied By Facility): CTDIvol = ( 17.26 ) mGy, DLP = ( 1093.87 ) mGycm TECHNIQUE: Transaxial images were obtained from the dome of the diaphragm to the symphysis pubis without oral contrast. IV 100mL Isovue-300 was administered. Sagittal and coronal images were reconstructed. Individualized dose optimization techniques were used for this CT. COMPARISON: None. FINDINGS: The visualized lung bases are unremarkable. The visualized portions of the heart are within normal limits. Normal liver. Normal gallbladder and extrahepatic biliary system. Normal spleen. Normal pancreas. Normal bilateral adrenal glands. Normal right kidney. Normal left kidney. Normal visualized stomach. Normal small intestine. Normal colon. The appendix is visualized and appears normal. Normal abdominal aorta. Normal inferior vena cava. Normal retroperitoneum. Normal urinary bladder. Mildly dilated right ureter down to the urinary bladder. Findings suggestive of a 1.4 cm x 0.4 cm ureterocele of the distal right ureter. There is a 2 cm x 1.8 cm cyst in the right ovary. The uterus is retroverted. The endometrium measures 9.6 mm. Small follicles are seen in the left ovary. There is a small umbilical hernia containing fat. Normal osseous structures. CT/CT Abd/Pelvis W/WO Contrast IMPRESSION: Right ovarian cyst. Mildly dilated right ureter with the findings suggestive of a 1.4 cm x 0.4 cm ureterocele of the distal right ureter Electronically Signed: Ibrahima Rae, at 10:08 EST , Service support ,
[2020-09-09 07:23] LABS: Anion Gap 3 (5-15); BUN 14 mg/dL (7-18); Calcium,Total 8.5 mg/dL (8.5-10.1); Chloride 107 mmol/L (98-107); EST Glomerular Filtration Rate 98 mL/min (>60); Est Glom Filt Rate - Afr Amer 119 mL/min (>60); Glucose 87 mg/dL (74-106); Potassium 3.9 mmol/L (3.5-5.1); Sodium Level 139 mmol/L (136-145)
== END ==
PROVIDERS: PCP Family Medicine
DX: R31.0 Gross hematuria (principal)
CPT/HCPCS: 36415; 74178; 80048; Q9967

== ENCOUNTER → 2020-12-04 08:44 | Outpatient (CLI) | payer OTHER, SELFPAY ==
--- NOTE | 2020-12-04 09:08 | BI_ITS ---
MAMMOGRAPHY - BILATERAL DIAGNOSTIC REASON FOR EXAM: Female, 40 years old. Palpable bilateral breast lumps. PERTINENT HISTORY: Aunt with breast cancer. TECHNIQUE: Digital bilateral breast west (3D mammographic acquisition) in the CC and MLO projections. 2-D mediolateral oblique (MLO) and craniocaudad (CC) views of both breasts were obtained. CAD: Full Field Digital Mammography with Computer Added Detection was performed. COMPARISON: Comparison is made with prior examination dated 12/30/2019 and 11/26/2018. FINDINGS: Breast Composition: The breasts are extremely dense, which lowers the sensitivity of mammography. There are no dominant masses or suspicious calcifications. No other significant abnormalities are identified. There has been no significant change since the prior study. BI/DIAG MAMM W/CAD, BILAT IMPRESSION: Stable bilateral diagnostic mammogram. With the patient''s history of palpable bilateral breast lumps, correlation with ultrasound is recommended. ASSESSMENT CATEGORY: BIRADS Category 0: Incomplete. Need additional imaging evaluation. A letter regarding these results will be sent to the patient by the facility within 30 days. Approximately 10% of breast cancers are not detected by mammography. A normal mammogram should not delay biopsy of a clinically suspicious abnormality. Electronically Signed: Ibrahima Rae MD at 10:17 EDT , Service support ,
--- NOTE | 2020-12-04 10:06 | US_ITS ---
STUDY: ULTRASOUND BREAST - RIGHT REASON FOR EXAM: Female, 40 years old. Palpable lump in the right breast. TECHNIQUE: Axial and longitudinal images of the RIGHT breast were performed with a high resolution ultrasound transducer. # OF IMAGES: 56 COMPARISON: Comparison is made with prior mammogram done earlier in the day as well as prior ultrasound of the right breast dated 11/26/2018. FINDINGS: RIGHT Breast: The mid lateral aspect of the right breast was examined by ultrasound. No sonographic abnormality is seen. IMPRESSION: No sonographic abnormality is seen. ASSESSMENT CATEGORY: BIRADS Category 1: Negative. A letter regarding these results will be sent to the patient by the facility within 30 days. Electronically Signed: Ibrahima Rae MD at 14:59 EDT , Service support , STUDY: ULTRASOUND BREAST - LEFT REASON FOR EXAM: Female, 40 years old. Palpable lump left breast. TECHNIQUE: Axial and longitudinal images of the LEFT breast were performed with a high resolution ultrasound transducer. # OF IMAGES: 56 COMPARISON: Comparison is made with prior mammogram done earlier in the day as well as prior sonogram dated 11/26/2018. FINDINGS: LEFT Breast: There is a 6 mm x 7 mm by 2 mm cyst in the lower outer aspect of the left breast. US/Breast Limited Unilateral IMPRESSION: 6 mm x 7 mm x 2 mm cyst in the lower outer aspect of the left breast. ASSESSMENT CATEGORY: BIRADS Category 2: Benign. A letter regarding these results will be sent to the patient by the facility within 30 days. Electronically Signed: Ibrahima Rae MD at 15:02 EDT , Service support ,
== END ==
PROVIDERS: PCP Family Medicine; Referring Provider Family Medicine; Visit Provider Family Medicine
DX: N63.10 Unspecified lump in the right breast, unspecified quadrant (principal); N60.02 Solitary cyst of left breast; Z80.3 Family history of malignant neoplasm of breast
CPT/HCPCS: 76642; 77062; 77066; G0279

== ENCOUNTER → 2020-12-30 08:56 | Outpatient (CLI) | payer OTHER, SELFPAY ==
[2020-12-30 10:49] LABS: ALB/GLOB Ratio 1.1 RATIO (0.9-2.4); AST(SGOT) 24 U/L (15-37); Alanine Aminotransfer ALT/SGPT 38 U/L (13-56); Albumin, Serum 3.8 g/dL (3.2-5.0); Alkaline Phosphatase 69 U/L (45-117); Anion Gap 3 (5-15); BUN 12 mg/dL (7-18); BUN/Creat Ratio 16.3 RATIO (10-20); Calcium,Total 8.7 mg/dL (8.5-10.1); Chloride 108 mmol/L (98-107); Cholesterol 144 mg/dL (200); Creatinine, Serum 0.74 mg/dL (0.55-1.02); EST Glomerular Filtration Rate 93 mL/min (>60); Est Glom Filt Rate - Afr Amer 112 mL/min (>60); Globulin 3.5 g/dL (2.2-4.2); Glucose 86 mg/dL (74-106); High Density Lipoprotein 68 mg/dL; Potassium 3.8 mmol/L (3.5-5.1); Protein, Total 7.3 g/dL (6.4-8.2); Sodium Level 139 mmol/L (136-145); T4 Free Direct 1.05 ng/dL (0.76-1.46); Thyroid Stim Hormone (TSH) 3.17 uIU/mL (0.358-3.74); Triglycerides 48 mg/dL; Very Low Density Lipoprotein 10 mg/dL (5-40)
== END ==
PROVIDERS: PCP Family Medicine; Referring Provider Family Medicine; Visit Provider Family Medicine
DX: E03.8 Other specified hypothyroidism (principal)
CPT/HCPCS: 36415; 80053; 80061; 84439; 84443

== ENCOUNTER → 2021-03-23 07:58 | Outpatient (CLI) | payer OTHER, SELFPAY ==
--- NOTE | 2021-03-23 08:00 | US_ITS ---
STUDY: RENAL ULTRASOUND - COMPLETE REASON FOR EXAM: Female, 40 years old. RIGHT HYDRONEPHROSIS TECHNIQUE: Ultrasound evaluation of the kidneys was performed with real-time and static cerda-scale imaging. COMPARISON: None. FINDINGS: RIGHT KIDNEY: Normal location of the right kidney, which is normal in size. The right kidney measures 11.7 cm x 4.8 cm x 5.4 cm. There is a normal cortex of the right kidney. The renal cortex measures 2.1 cm. There is no right renal mass or cyst. There are no right renal calculi. There is mild hydronephrosis of the right kidney. DISTAL RIGHT URETER: There is evidence of a 1.4 cm x 2.2 cm x 1.3 cm ureterocele at the right side of the bladder. There is no demonstrated right ureterovesical junction calculus. There is a visualized right ureteral jet. LEFT KIDNEY: Normal location of the left kidney, which is normal in size. The left kidney measures 10.9 cm x 5.2 cm x 5.9 cm. There is a normal cortex of the left kidney. The renal cortex measures 2.1 cm. There is no left renal mass or cyst. There are no left renal calculi. There is no left hydronephrosis. DISTAL LEFT URETER: There is non-visualization of the distal left ureter. There is no demonstrated left ureterovesical junction calculus. There is a visualized left ureteral jet. BLADDER: The distended urinary bladder has a volume of 352 ml. There is a normal wall thickness of the distended urinary bladder. There is no demonstrated mass within the urinary bladder. There are no demonstrated bladder calculi. US/Kidney and Bladder IMPRESSION: Mild right hydronephrosis. There is a 1.4 cm x 2.2 cm x 1.3 cm ureterocele of the distal right ureter at the base of the bladder. Electronically Signed: Ibrahima Rae MD at 11:05 EDT , Service support ,
== END ==
PROVIDERS: PCP Family Medicine
DX: N13.30 Unspecified hydronephrosis (principal)
CPT/HCPCS: 76770

== ENCOUNTER → 2021-06-30 08:14 | Outpatient (CLI) | payer OTHER, SELFPAY ==
[2021-06-30 10:47] LABS: T4 Free Direct 0.99 ng/dL (0.76-1.46); Thyroid Stim Hormone (TSH) 3.31 uIU/mL (0.358-3.74)
== END ==
PROVIDERS: PCP Family Medicine; Referring Provider Family Medicine; Visit Provider Family Medicine
DX: E03.8 Other specified hypothyroidism (principal)
CPT/HCPCS: 36415; 84439; 84443

== ENCOUNTER → 2022-01-05 | Outpatient (CLI) | payer OTHER, SELFPAY ==
[2022-01-05 10:55] LABS: T4 Free Direct 1.07 ng/dL (0.76-1.46); Thyroid Stim Hormone (TSH) 2.24 uIU/mL (0.358-3.74)
== END | disposition home or self-care (01) ==
LOC: MFPLAB 09:10
PROVIDERS: PCP Family Medicine; Referring Provider Family Medicine; Visit Provider Family Medicine
DX: E03.8 Other specified hypothyroidism (principal)
CPT/HCPCS: 36415; 84439; 84443

== ENCOUNTER 2022-03-23 16:29 | Outpatient (CLI) | payer OTHER, SELFPAY ==
--- NOTE | 2022-03-23 16:35 | US_ITS ---
INDICATION: Ureterocele EXAMINATION: US Kidney(s) complete (eg, kidneys and bladder) TECHNIQUE: Staley scale and color doppler images were obtained of the kidneys. COMPARISON: Renal ultrasound from 03/23/2021. FINDINGS: RIGHT KIDNEY: Right kidney measures 11.4 x 3.2 x 5.1 cm cortical thickness of 1.1 cm. There is no hydronephrosis. Mildly ectatic right ureter measuring up to 5 mm diameter proximally. No shadowing calculus, focal lesion or perinephric collection is demonstrated. LEFT KIDNEY: Left kidney measures 11.7 x 5.4 x 5.4 cm with cortical thickness of 1.3 cm. There is no hydronephrosis. Mildly ectatic left ureter measuring up to 5 mm diameter proximally. No shadowing calculus, focal lesion or perinephric collection is demonstrated. URINARY BLADDER: Thin-walled ovoid cystic structure again noted at right UVJ protruding into the bladder lumen, compatible with ureterocele -- stable size measuring 2.1 cm maximum diameter. Bilateral ureteral jets are visualized. No significant urinary bladder wall thickening. Bladder volume 409 mL, with no post void imaging performed. 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 Electronically Signed: Melvin Cook MD at 1:38 EDT ,
== END 2022-03-23 23:59 | disposition home or self-care (01) ==
LOC: US 16:34
PROVIDERS: PCP Family Medicine
DX: N28.89 Other specified disorders of kidney and ureter (principal)
CPT/HCPCS: 76770

== ENCOUNTER → 2022-05-05 | Outpatient (CLI) | payer OTHER, SELFPAY ==
--- NOTE | 2022-05-05 09:37 | BI_ITS ---
MAMMOGRAPHY - BILATERAL DIAGNOSTIC REASON FOR EXAM: Female, 41 years old. One-month history of right breast lump. PERTINENT HISTORY: Aunt with breast cancer. Remote left excisional breast biopsy. TECHNIQUE: Digital bilateral breast west (3D mammographic acquisition) in the CC and MLO projections. 2-D mediolateral oblique (MLO) and craniocaudad (CC) views of both breasts were obtained. CAD: Full Field Digital Mammography with Computer Added Detection was performed. COMPARISON: Comparison is made with prior study dated 10/07/2021 and 12/04/2020. FINDINGS: Breast Composition: The breasts are extremely dense, which lowers the sensitivity of mammography. There are no dominant masses or suspicious calcifications. No other significant abnormalities are identified. There has been no significant change since the prior study. BI/DIAG MAMM W/CAD, BILAT IMPRESSION: Stable bilateral diagnostic mammogram. With the patient''s history of a palpable lump in the right breast, correlation with ultrasound is recommended. ASSESSMENT CATEGORY: BIRADS Category 0: Incomplete. Need additional imaging evaluation. A letter regarding these results will be sent to the patient by the facility within 30 days. Approximately 10% of breast cancers are not detected by mammography. A normal mammogram should not delay biopsy of a clinically suspicious abnormality. Electronically Signed: Ibrahima Rae MD at 10:51 EDT ,
--- NOTE | 2022-05-05 09:39 | US_ITS ---
STUDY: ULTRASOUND BREAST - right REASON FOR EXAM: Female, 41 years old. Right breast lump. TECHNIQUE: Axial and longitudinal images of the RIGHT breast were performed with a high resolution ultrasound transducer. # OF IMAGES: 40 COMPARISON: Comparison is made with prior mammogram done earlier today as well as prior ultrasound of the right breast dated 10/07/2021. FINDINGS: Right Breast: The inferior lateral aspect of the right breast was examined with ultrasound. No sonographic mouth is seen. US/Breast Limited Unilateral IMPRESSION: No sonographic abnormality is seen. ASSESSMENT CATEGORY: BIRADS Category 1: Negative. A letter regarding these results will be sent to the patient by the facility within 30 days. Electronically Signed: Ibrahima Rae MD at 10:56 EDT ,
== END | disposition home or self-care (01) ==
PROVIDERS: PCP Family Medicine; Visit Provider Family Medicine
DX: N63.10 Unspecified lump in the right breast, unspecified quadrant (principal); R92.2 Inconclusive mammogram; Z80.3 Family history of malignant neoplasm of breast
CPT/HCPCS: 76642; 77062; 77066; G0279

== ENCOUNTER → 2022-07-19 | Outpatient (CLI) | payer OTHER, SELFPAY ==
[2022-07-19 17:44] LABS: Basophil% 1.3 % (0-1); Eosinophil# 0.14 X10^3/uL; Eosinophils% 1.8 % (0-5); Hematocrit 41.4 % (37-47); Hemoglobin 13.9 g/dL (12.0-15.0); Lymphocyte % 26.8 % (19-41); Mean Corp Hgb Conc 33.6 g/dL (32-36); Mean Corpuscular Hgb 30.8 pg (27.0-32.0); Mean Corpuscular Volume 91.6 fL (81-99); Mean Platelet Vol. 9.4 fl (6.2-12.0); Monocyte# 0.53 X10^3/uL; Monocyte% 6.8 % (0-10); NRBC Flagged by Analyzer 0 % (0-5); Neutrophil # 4.95 X10^3/uL (2.7-7.7); Platelet Count 294 K/mm3 (150-450); RBC Distribution Width CV 12.6 % (11.6-14.6); RBC Distribution Width SD 42.7 fl (35.1-43.9); Red Blood Count 4.52 M/mm3 (4.2-5.4); White Blood Count 7.8 K/mm3 (4.4-11.0)
[2022-07-19 18:11] LABS: ALB/GLOB Ratio 1.1 RATIO (0.9-2.4); AST(SGOT) 23 U/L (15-37); Alanine Aminotransfer ALT/SGPT 22 U/L (13-56); Albumin, Serum 3.9 g/dL (3.2-5.0); Alkaline Phosphatase 73 U/L (45-117); Anion Gap 6 (5-15); BUN 12 mg/dL (7-18); BUN/Creat Ratio 18.3 RATIO (10-20); Calcium,Total 8.7 mg/dL (8.5-10.1); Chloride 105 mmol/L (98-107); Cholesterol 119 mg/dL (200); Creatinine, Serum 0.65 mg/dL (0.55-1.02); EST Glomerular Filtration Rate 105 mL/min (>60); Est Glom Filt Rate - Afr Amer 128 mL/min (>60); Globulin 3.6 g/dL (2.2-4.2); Glucose 82 mg/dL (74-106); High Density Lipoprotein 57 mg/dL; Potassium 3.8 mmol/L (3.5-5.1); Protein, Total 7.5 g/dL (6.4-8.2); Sodium Level 135 mmol/L (136-145); T4 Free Direct 1.28 ng/dL (0.76-1.46); Thyroid Stim Hormone (TSH) 1.37 uIU/mL (0.358-3.74); Triglycerides 48 mg/dL; Very Low Density Lipoprotein 10 mg/dL (5-40)
== END | disposition home or self-care (01) ==
LOC: MFPLAB 16:17
PROVIDERS: PCP Family Medicine; Referring Provider Family Medicine; Visit Provider Family Medicine
DX: E03.8 Other specified hypothyroidism (principal)
CPT/HCPCS: 36415; 80053; 80061; 84439; 84443; 85025

== ENCOUNTER → 2022-07-27 | Outpatient (CLI) | payer OTHER, SELFPAY ==
--- NOTE | 2022-07-27 18:34 | US_ITS ---
STUDY: THYROID ULTRASOUND REASON FOR EXAM: Female, 42 years old. Hypothyroidism. TECHNIQUE: Ultrasound evaluation of the thyroid was performed with real-time and static garcia-scale imaging. COMPARISON: June 20, 2018. FINDINGS: RIGHT LOBE: The right lobe of the thyroid gland measures 5.1 x 1.6 x 1.5 cm. There is a heterogeneous echotexture. There are no demonstrated solid, cystic or complex lesions. LEFT LOBE: The left lobe of the thyroid gland measures 3.7 x 1.2 x 1.2 cm. There is a heterogeneous echotexture. There are no demonstrated solid, cystic or complex lesions. ISTHMUS: The isthmus measures 2 mm. . The regional lymph nodes are normal. On the prior study the right lobe measured 5.1 and the left lobe 3.8 cm in greatest length. US/Thyroid IMPRESSION: Stable thyroid ultrasound. No thyroid nodules. Enlarged right lobe of the thyroid gland unchanged. Electronically Signed: Leobardo Vasquez MD at 6:14 EST Reading Location ID and State: [id number] / , Service support ,
== END | disposition home or self-care (01) ==
PROVIDERS: PCP Family Medicine; Visit Provider Family Medicine
DX: E03.8 Other specified hypothyroidism (principal)
CPT/HCPCS: 76536

== ENCOUNTER → 2023-01-12 | Outpatient (CLI) | payer OTHER, SELFPAY ==
[2023-01-12 10:42] LABS: ALB/GLOB Ratio 1.1 RATIO (0.9-2.4); AST(SGOT) 22 U/L (15-37); Alanine Aminotransfer ALT/SGPT 23 U/L (13-56); Albumin, Serum 3.8 g/dL (3.2-5.0); Alkaline Phosphatase 71 U/L (45-117); Anion Gap 4 (5-15); BUN 16 mg/dL (7-18); BUN/Creat Ratio 22.9 RATIO (10-20); Calcium,Total 8.7 mg/dL (8.5-10.1); Chloride 107 mmol/L (98-107); EST Glomerular Filtration Rate 97 mL/min (>60); Est Glom Filt Rate - Afr Amer 118 mL/min (>60); Globulin 3.6 g/dL (2.2-4.2); Glucose 81 mg/dL (74-106); Potassium 3.9 mmol/L (3.5-5.1); Protein, Total 7.4 g/dL (6.4-8.2); Sodium Level 136 mmol/L (136-145); T4 Free Direct 1.26 ng/dL (0.76-1.46); Thyroid Stim Hormone (TSH) 3.81 uIU/mL (0.358-3.74)
== END | disposition home or self-care (01) ==
LOC: MTLAB 07:54
PROVIDERS: PCP Family Medicine; Referring Provider Family Medicine; Visit Provider Family Medicine
DX: E03.8 Other specified hypothyroidism (principal)
CPT/HCPCS: 36415; 80053; 84439; 84443

== ENCOUNTER → 2023-02-07 | Outpatient (CLI) | payer OTHER, SELFPAY ==
--- NOTE | 2023-02-07 09:40 | BI_ITS ---
EXAM: Diagnostic bilateral breast mammogram and diagnostic bilateral breast ultrasound REASON FOR EXAM: Female, 42 years old. Complains of bilateral palpable lumps PERTINENT HISTORY: Aunt with breast cancer. Remote left excisional biopsy. TECHNIQUE: Digital bilateral breast west (3D mammographic acquisition) in the CC and MLO projections. 2-D mediolateral oblique (MLO) and craniocaudad (CC) views of both breasts were obtained. CAD: Full Field Digital Mammography with Computer Added Detection was performed. Real-time garcia scale and color sonographic images were obtained of the bilateral outer breasts and bilateral axilla in the clinical area of concern.. COMPARISON: Diagnostic mammogram from 05/05/2022, 10/07/2021.. Diagnostic right breast ultrasound from May 05, 2022. Diagnostic left breast ultrasound from October 07, 2021. FINDINGS: Mammogram findings: Breast Composition: The breasts are extremely dense, which lowers the sensitivity of mammography. There are no dominant masses or suspicious calcifications. No other significant abnormalities are identified. There has been no significant change since the prior study. Ultrasound was obtained for further assessment of both breasts. Ultrasound findings: RIGHT BREAST: The right outer breast from the 6:00 to 10:00 position and the right axilla in the clinical areas of concern were assessed. Normal fibroglandular tissue. No abnormal masses or fluid collections. There are 2 benign-appearing nonenlarged right axillary lymph nodes, the larger of which measures up to 0.5 cm in short axis. LEFT BREAST: The left breast from the 2:00 to 4:00 position and the left axilla in the clinical areas of concern were assessed. There is a 0.9 x 1.1 x 0.5 cm simple-appearing cyst at the 4:00 position, approximately 3 cm posterior to the nipple. This likely corresponds to slight increase in size of the previously seen 0.6 x 0.7 x 0.3 cm cyst in the left breast 3:00 position from October 07, 2021. Benign-appearing nonenlarged left axillary lymph node measures up to 0.5 cm in short axis. No abnormal masses or fluid collections. BI/DIAG MAMM W/CAD, BILAT IMPRESSION: Stable bilateral diagnostic mammogram. 1 year follow-up recommended. No abnormal masses or fluid collections on ultrasound examination of the clinical area of concern in the right breast and right axilla. 0.9 x 1.1 x 0.5 cm simple and benign appearing cyst in the left breast at the 4:00 position has minimally increased in size from 10/07/2021 and likely correlates to patient''s palpable finding. No abnormal masses or fluid collections on ultrasound examination of the clinical area of concern in the left breast and left axilla. ASSESSMENT CATEGORY: BIRADS Category 2: Benign. A letter regarding these results will be sent to the patient by the facility within 30 days. Recommendation: Return to annual screening mammogram. If clinical concerns for enlarging mass or nipple discharge on physical exam, repeat diagnostic ultrasound and mammogram is recommended. Approximately 10% of breast cancers are not detected by mammography. A normal mammogram should not delay biopsy of a clinically suspicious abnormality. Electronically Signed: Moy Abbott MD at 11:39 EDT ,
== END | disposition home or self-care (01) ==
PROVIDERS: PCP Family Medicine; Referring Provider Family Medicine; Visit Provider Family Medicine
DX: N63.0 Unspecified lump in unspecified breast (principal)
CPT/HCPCS: 77062; 77066; G0279

== ENCOUNTER → 2023-02-08 | Outpatient (CLI) | payer OTHER, SELFPAY ==
--- NOTE | 2023-02-08 07:57 | US_ITS ---
EXAM: Diagnostic bilateral breast mammogram and diagnostic bilateral breast ultrasound REASON FOR EXAM: Female, 42 years old. Complains of bilateral palpable lumps PERTINENT HISTORY: Aunt with breast cancer. Remote left excisional biopsy. TECHNIQUE: Digital bilateral breast west (3D mammographic acquisition) in the CC and MLO projections. 2-D mediolateral oblique (MLO) and craniocaudad (CC) views of both breasts were obtained. CAD: Full Field Digital Mammography with Computer Added Detection was performed. Real-time garcia scale and color sonographic images were obtained of the bilateral outer breasts and bilateral axilla in the clinical area of concern.. COMPARISON: Diagnostic mammogram from 05/05/2022, 10/07/2021.. Diagnostic right breast ultrasound from May 05, 2022. Diagnostic left breast ultrasound from October 07, 2021. FINDINGS: Mammogram findings: Breast Composition: The breasts are extremely dense, which lowers the sensitivity of mammography. There are no dominant masses or suspicious calcifications. No other significant abnormalities are identified. There has been no significant change since the prior study. Ultrasound was obtained for further assessment of both breasts. Ultrasound findings: RIGHT BREAST: The right outer breast from the 6:00 to 10:00 position and the right axilla in the clinical areas of concern were assessed. Normal fibroglandular tissue. No abnormal masses or fluid collections. There are 2 benign-appearing nonenlarged right axillary lymph nodes, the larger of which measures up to 0.5 cm in short axis. LEFT BREAST: The left breast from the 2:00 to 4:00 position and the left axilla in the clinical areas of concern were assessed. There is a 0.9 x 1.1 x 0.5 cm simple-appearing cyst at the 4:00 position, approximately 3 cm posterior to the nipple. This likely corresponds to slight increase in size of the previously seen 0.6 x 0.7 x 0.3 cm cyst in the left breast 3:00 position from October 07, 2021. Benign-appearing nonenlarged left axillary lymph node measures up to 0.5 cm in short axis. No abnormal masses or fluid collections. IMPRESSION: Stable bilateral diagnostic mammogram. 1 year follow-up recommended. No abnormal masses or fluid collections on ultrasound examination of the clinical area of concern in the right breast and right axilla. 0.9 x 1.1 x 0.5 cm simple and benign appearing cyst in the left breast at the 4:00 position has minimally increased in size from 10/07/2021 and likely correlates to patient''s palpable finding. No abnormal masses or fluid collections on ultrasound examination of the clinical area of concern in the left breast and left axilla. ASSESSMENT CATEGORY: BIRADS Category 2: Benign. A letter regarding these results will be sent to the patient by the facility within 30 days. Recommendation: Return to annual screening mammogram. If clinical concerns for enlarging mass or nipple discharge on physical exam, repeat diagnostic ultrasound and mammogram is recommended. Approximately 10% of breast cancers are not detected by mammography. A normal mammogram should not delay biopsy of a clinically suspicious abnormality. Electronically Signed: Moy Abbott MD at 11:41 EDT , EXAM: Diagnostic bilateral breast mammogram and diagnostic bilateral breast ultrasound REASON FOR EXAM: Female, 42 years old. Complains of bilateral palpable lumps PERTINENT HISTORY: Aunt with breast cancer. Remote left excisional biopsy. TECHNIQUE: Digital bilateral breast west (3D mammographic acquisition) in the CC and MLO projections. 2-D mediolateral oblique (MLO) and craniocaudad (CC) views of both breasts were obtained. CAD: Full Field Digital Mammography with Computer Added Detection was performed. Real-time garcia scale and color sonographic images were obtained of the bilateral outer breasts and bilateral axilla in the clinical area of concern.. COMPARISON: Diagnostic mammogram from 05/05/2022, 10/07/2021.. Diagnostic right breast ultrasound from May 05, 2022. Diagnostic left breast ultrasound from October 07, 2021. FINDINGS: Mammogram findings: Breast Composition: The breasts are extremely dense, which lowers the sensitivity of mammography. There are no dominant masses or suspicious calcifications. No other significant abnormalities are identified. There has been no significant change since the prior study. Ultrasound was obtained for further assessment of both breasts. Ultrasound findings: RIGHT BREAST: The right outer breast from the 6:00 to 10:00 position and the right axilla in the clinical areas of concern were assessed. Normal fibroglandular tissue. No abnormal masses or fluid collections. There are 2 benign-appearing nonenlarged right axillary lymph nodes, the larger of which measures up to 0.5 cm in short axis. LEFT BREAST: The left breast from the 2:00 to 4:00 position and the left axilla in the clinical areas of concern were assessed. There is a 0.9 x 1.1 x 0.5 cm simple-appearing cyst at the 4:00 position, approximately 3 cm posterior to the nipple. This likely corresponds to slight increase in size of the previously seen 0.6 x 0.7 x 0.3 cm cyst in the left breast 3:00 position from October 07, 2021. Benign-appearing nonenlarged left axillary lymph node measures up to 0.5 cm in short axis. No abnormal masses or fluid collections. US/Breast Limited Unilateral
== END | disposition home or self-care (01) ==
PROVIDERS: PCP Family Medicine; Referring Provider Family Medicine; Visit Provider Family Medicine
DX: N63.0 Unspecified lump in unspecified breast (principal)
CPT/HCPCS: 76642

== ENCOUNTER → 2023-07-25 | Outpatient (CLI) | payer OTHER, SELFPAY ==
[2023-07-25 10:03] LABS: Absolute Neutrophil Count 3.3 X10^3/uL (2.0-7.7); Basophil# 0.07 X10^3/uL; Basophil% 1.2 % (0-1); Eosinophil# 0.15 X10^3/uL; Eosinophils% 2.6 % (0-5); Hematocrit 39.6 % (37-47); Hemoglobin 12.6 g/dL (12.0-15.0); Lymphocyte % 29.5 % (19-41); Mean Corp Hgb Conc 31.8 g/dL (32-36); Mean Corpuscular Hgb 29.6 pg (27.0-32.0); Mean Corpuscular Volume 93.2 fL (81-99); Mean Platelet Vol. 9.6 fl (6.2-12.0); Monocyte# 0.52 X10^3/uL; NRBC Flagged by Analyzer 0 % (0-5); Neutrophil # 3.32 X10^3/uL (2.7-7.7); Neutrophil % 57.5 % (47-70); Platelet Count 277 K/mm3 (150-450); RBC Distribution Width CV 12.7 % (11.6-14.6); RBC Distribution Width SD 43.7 fl (35.1-43.9); Red Blood Count 4.25 M/mm3 (4.2-5.4); White Blood Count 5.8 K/mm3 (4.4-11.0)
[2023-07-25 10:18] LABS: Vitamin D,25 Hydroxy 78.6 ng/mL
[2023-07-25 10:33] LABS: ALB/GLOB Ratio 0.9 RATIO (0.9-2.4); AST(SGOT) 24 U/L (15-37); Alanine Aminotransfer ALT/SGPT 28 U/L (13-56); Albumin, Serum 3.3 g/dL (3.2-5.0); Alkaline Phosphatase 78 U/L (45-117); Anion Gap 5 (5-15); BUN 16 mg/dL (7-18); Calcium,Total 8.6 mg/dL (8.5-10.1); Chloride 108 mmol/L (98-107); Creatinine, Serum 0.67 mg/dL (0.55-1.02); EST Glomerular Filtration Rate 102 mL/min (>60); Est Glom Filt Rate - Afr Amer 124 mL/min (>60); Globulin 3.5 g/dL (2.2-4.2); Glucose 91 mg/dL (74-106); Potassium 3.9 mmol/L (3.5-5.1); Protein, Total 6.8 g/dL (6.4-8.2); Sodium Level 139 mmol/L (136-145); T4 Free Direct 1.21 ng/dL (0.76-1.46); Thyroid Stim Hormone (TSH) 2.41 uIU/mL (0.358-3.74)
== END | disposition home or self-care (01) ==
LOC: MFPLAB 08:13
PROVIDERS: PCP Family Medicine; Visit Provider Family Medicine
DX: E03.8 Other specified hypothyroidism (principal); E55.9 Vitamin D deficiency, unspecified
CPT/HCPCS: 36415; 80053; 82306; 84439; 84443; 85025

== ENCOUNTER → 2023-10-10 | Outpatient (CLI) | payer OTHER, SELFPAY ==
--- NOTE | 2023-10-10 09:09 | BI_ITS ---
MAMMOGRAPHY - UNILATERAL DIAGNOSTIC: LEFT BREAST REASON FOR EXAM: Female, 43 years old. Palpable lump at the 4:00 position of the left breast. PERTINENT HISTORY: Aunt with breast cancer. History of remote left excisional breast biopsy. TECHNIQUE: Digital unilateral breast west (3D mammographic acquisition) in the CC and MLO projections. 2-D mediolateral oblique (MLO) and craniocaudad (CC) views of both breasts were obtained. CAD: Full Field Digital Mammography with Computer Added Detection was performed. COMPARISON: Comparison is made with prior mammogram dated February 07, 2023. FINDINGS: Breast Composition: The breasts are extremely dense, which lowers the sensitivity of mammography. There are no dominant masses or suspicious calcifications. No other significant abnormalities are identified. There has been no significant change since the prior study. BI/DIAG MAMM W/CAD, UNILAT IMPRESSION: Stable unilateral diagnostic mammogram. With the patient''s history of a palpable lump in the left breast, correlation with ultrasound is recommended. ASSESSMENT CATEGORY: BIRADS Category 0: Incomplete. Need additional imaging evaluation. A letter regarding these results will be sent to the patient by the facility within 30 days. Approximately 10% of breast cancers are not detected by mammography. A normal mammogram should not delay biopsy of a clinically suspicious abnormality. Electronically Signed: Ibrahima Rae MD at 11:36 EST ,
--- OUTSIDE RECORDS SUMMARY | 2023-10-10 09:32 | XMS RPT_ITS | CCD ---
Author Name Unknown Address [address] [place] [address] Organization [facility] Care Team Providers Care Extrusion Engineer Name Role Phone Leo Ocampo Unavailable Unavailable PROVIDER, UNKNOWN Unavailable Unavailable Leo Ocampo Unavailable Unavailable Sarah Antony Primary Care Provider [phone] Sarah Antony Primary Care Provider Sarah Antony Primary Care Provider SARAH ANTONY Primary Care Unavailable MIKE FAIRCHILD Referring Unavailable PAPMIKE Attending Unavailable PAP, MIEK LU Attending Unavailable SARAH ANTONY Primary Care Unavailable PAPMIKE Referring Unavailable Allergies Allergy Classification Reported Allergen(s) Allergy Type Date of Onset Reaction(s) Facility (6 sources) Amoxicillin; Translations: [AMOXICILLIN] Drug Allergy 01-28-2013 Rash [facility] Medications Completed/Discontinued Medications Medication Drug Class(es) Dates Sig (Normalized) Sig (Original) Calcium (5 sources) Phosphate Binder, Calcium CALCIUM ORAL Take by mouth. 0 Active Problems Active Problems Problem Classification Problem Date Documented Da te Episodic/Chronic Nonmalignant breast conditions (4 sources) Fibrocystic changes of bilateral breasts; Translations: [Diffuse cystic mastopathy of right breast] Onset: 07-11-2022 Chronic Nutritional deficiencies (5 sources) Vitamin D deficiency; Translations: [Vitamin D deficiency, unspecified] Onset: 02-20-2015 02-20-2015 Chronic Thyroid disorders (5 sources) Hypothyroidism; Translations: [Hypothyroidism, unspecified] Onset: 01-28-2013 01-28-2013 Chronic Past or Other Problems Problem Classification Problem Date Documented Da te Episodic/Chronic Nonmalignant breast conditions (5 sources) Lump in left breast; Translations: [Unspecified lump in the left breast, unspecified quadrant] Onset: 08-04-2015 08-04-2015 Episodic Other skin disorders (5 sources) Hirsutism; Translations: [Hirsutism] Onset: 01-28-2013 01-28-2013 Episodic Other skin disorders (5 sources) Acne; Translations: [Acne, unspecified] Onset: 01-28-2013 01-28-2013 Episodic Unclassified (5 sources) Other abnormal and inconclusive findings on diagnostic imaging of breast; Translations: [Patient encounter status] Onset: 06-22-2017 Episodic Results Test Name Value Interpretation Reference Range Facil ity Vital Signs Date Time Vital Sign Value Performing Clinician Faci lity 07-11-2022 08:11-0400 Body height 160 cm Mike Fairchild MD Work Phone: [facility] 07-11-2022 08:11-0400 Body temperature 96.8 [degF] Mike Fairchild MD Work Phone: [facility] 07-11-2022 08:11-0400 Body weight 49.9 kg Mike Fairchild MD Work Phone: [facility] 07-11-2022 08:11-0400 Diastolic blood pressure 62 mm[Hg] Mike Fairchild MD Work Phone: [facility] 07-11-2022 08:11-0400 Heart rate 56 /min Mike Fairchlid MD Work Phone: [facility] 07-11-2022 08:11-0400 Respiratory rate 16 /min Mike Fairchild MD Work Phone: [facility] 07-11-2022 08:11-0400 SaO2% (BldA) [Mass fraction] 99 % Mike Fairchild MD Work Phone: [facility] 07-11-2022 08:11-0400 Systolic blood pressure 101 mm[Hg] Mike Fairchild MD Work Phone: [facility] 02-28-2022 09:00-0400 Body height 158.8 cm Mike Fairchild MD Work Phone: [facility] 02-28-2022 09:00-0400 Body temperature 98.4 [degF] Mike Fairchild MD Work Phone: [facility] 02-28-2022 09:00-0400 Body weight 49.9 kg Mike Fairchild MD Work Phone: [facility] 02-28-2022 09:00-0400 Diastolic blood pressure 64 mm[Hg] Mike Fairchild MD Work Phone: [facility] 02-28-2022 09:00-0400 Heart rate 51 /min Mike Fairchild MD Work Phone: [facility] 02-28-2022 09:00-0400 Respiratory rate 12 /min Mike Fairchild MD Work Phone: [facility] 02-28-2022 09:00-0400 SaO2% (BldA) [Mass fraction] 98 % Mike Fairchild MD Work Phone: [facility] 02-28-2022 09:00-0400 Systolic blood pressure 101 mm[Hg] Mike Fairchild MD Work Phone: [facility] Encounters Encounter Date Encounter Type Care Provider Facility Start: 06-26-2023 End: 06-26-2023 ambulatory MIKE FAIRCHILD Facility:[facility] Start: 01-11-2023 Telephone encounter Mike Fairchild MD Work Phone: [facility] General Obstetrics & Gynecology Plan of Treatment Date Care Activity Detail Author Start: 07-11-2027 HPV TESTING HPV TESTING [facility] Start: 07-11-2027 PAP TESTING PAP TESTING [facility] Start: 07-05-2026 PAP TESTING PAP TESTING [facility] Start: 01-01-2024 HPV TESTING HPV TESTING [facility] Start: 05-19-2023 Influenza vaccination INFLUENZA (Season Ended) [facility] Start: 09-18-2022 DEPRESSION ASSESSMENT DEPRESSION ASSESSMENT [facility] Start: 05-19-2022 Influenza vaccination INFLUENZA (#1) [facility] Start: 09-18-2021 DEPRESSION ASSESSMENT DEPRESSION ASSESSMENT [facility] Start: 2020 Mammography MAMMOGRAM [facility] Start: 1999 Urine microalbumin profile DTAP,TDAP,TD (1 - Tdap) [facility] Start: 1998 ANNUAL PCP TEAM CHRONIC DISEASE VISIT ANNUAL PCP TEAM CHRONIC DISEASE VISIT [facility] Start: 1998 HEPATITIS C SCREENING HEPATITIS C SCREENING [facility] Start: 1998 HIV SCREENING HIV SCREENING [facility] Start: 1992 Adult depression screening assessment DEPRESSION SCREENING [facility] Start: 1980 HEPATITIS B (1 of 3 - 3-dose series) HEPATITIS B (1 of 3 - 3-dose series) [facility] End: 02-03-2024 [facility] Radiology Routine Breast screening 1 Occurrences starting 01/09/2023 until 02/03/2024 [facility] Work Phone: Payers Date Payer Category Payer Unknown 2017 Unknown GAILDAVID DUNBAR BASHIR [id number] 2017-Present [phone] [address] [place] [address] Indemnity [id number] 2017 Unknown [id number] Social History Date Type Detail Facility Start: 01-28-2013 Tobacco smoking stat [facility] Never smoked tobacco [facility] Start: 01-28-2013 Tobacco use and exposure Smoke less tobacco non-user [facility] Start: 02-28-2022 End: 07-11-2022 Alcohol intake Current non-drinker of alcohol (finding) [facility] Start: 1980 Sex Assigned At Not on file [facility] Start: 02-18-2022 End: 07-11-2022 Exposure to SARS-CoV-2 (event) Not sure [facility] Clinical Notes 05-20-2014 to 01-11-2023 Telephone Encounter - Camille Reyes RN - 01/11/2023 1:34 PM EDTTelephone Encounter - Denise Titus RN - 01/09/2023 10:58 AM EDTTelephone Encounter - Camille Reyes RN - 01/04/2023 8:55 AM EDT Note Date & Type Note Facility 01-11-2023 Miscellaneous Notes LVM on nurse line that she needs an US order. RN called pt and asked to clarify and she means br US order. RN told her I would pend an order for Dr Fairchild to sign and she said she will call her PCP to have them do the order. RN re faxed the [facility] order to [phone] per pt request. Camille Reyes RN documented in this encounter [facility] 01-09-2023 Miscellaneous Notes Called in requesting order for mammogram be sent to [facility]. Faxed to [phone]. Denise Titus RN documented in this encounter [facility] 01-04-2023 Miscellaneous Notes Called asking for diag [facility] per suggestion from PCP but wanted GROUP FITNESS INSTRUCTOR to order. Order pended. Thank you, Camille Reyes RN documented in this encounter [facility] 07-11-2022 History and physical note Iban Rider is a 42 year old female who presents for annual exam. No problems. A few periods came early but no intermenstrual bleeding. Last mammogram with FP in April. ALLERGIES Allergen Reactions Amoxicillin Rash Current Outpatient Medications Medication Sig cetirizine (ZYRTEC) 5 mg tablet Take 5 mg by mouth once daily. VITAFOL ULTRA 29 mg iron- 1 mg-200 mg cap Take 1 capsule by mouth once daily. naproxen (NAPROSYN) 375 mg tablet Take 375 mg by mouth as needed. MULTIVITAMIN/IRON/FOLIC ACID (CENTRUM ULTRA WOMEN'S ORAL) Take by mouth once daily. VIT A/VIT C/VIT E/ZINC/COPPER (PRESERVISION AREDS ORAL) Take by mouth as needed. Cholecalciferol, Vitamin D3, 2,000 unit cap Take by mouth. CALCIUM ORAL Take by mouth. magnesium sulfate 100 mg cap Take by mouth. LORazepam (ATIVAN) 0.5 mg tab Take by mouth three times daily as needed. levothyroxine (SYNTHROID) 75 mcg tablet Take 75 mcg by mouth once daily. triamcinolone acetonide topical 0.5 % ointment Cholecalciferol, Vitamin D3, 2,000 unit cap Take 1 capsule by mouth. cyclobenzaprine (FLEXERIL) 10 mg tablet Take 10 mg by mouth once daily. (Patient not taking: No sig reported) No current facility-administered medications for this visit. Subjective OB History T0 L0 SAB0 IAB0 Ectopic0 Multiple0 Live Births0 Past Gynecological History: negative PAST MEDICAL HISTORY Diagnosis Date Anxiety Breast mass 05/2015 right Elevated DHEA Hyperprolactinemia (HCC) Hypothyroid Left breast mass 08/04/2015 Left breast mass 06/2016 cysts Vitamin D deficiency 03/01 PAST SURGICAL HISTORY Procedure Laterality Date BREAST BIOPSY INCISIONAL LEFT 05/29/2014 EXTRACTION, ERUPTED TOOTH OR EXPOSED ROOT (ELEVATION AND/OR FORCEPS REMOVAL) 1994 PAST SURGICAL HISTORY OF 2001 dental surgery Social History Tobacco Use Smoking status: Never Smokeless tobacco: Never Vaping Use Vaping Use: Never used Substance Use Topics Alcohol use: No Drug use: No FAMILY HISTORY Problem Relation Age of Onset Thyroid Paternal Aunt Ischemic Heart Disease Father Hypertension Father Lipids Father Cancer Paternal Grandfather prostate Cancer Paternal Uncle skin Breast Cancer Maternal Grandmother Breast Cancer Sister Review of Symptoms negative Objective BP 101/62 Pulse 56 Temp (Src) 96.8 (Oral) Resp 16 Ht 5' 3 (1.60m) Wt 110 lb (49.9kg) SpO2 99% LMP 06/28/2022 BMI 19.49 kg/(m^2). Physical Exam - restricted to breast and pelvic exam BREAST-without masses, FCBD improved GROUP FITNESS INSTRUCTOR: Vulva - normal, Vagina - normal - cervix nulliparous, Pap done, Uterus - midplane, adnexa neg ASSESSMENT/PLAN: 1. Encounter for annual routine gynecological examination - ICD9: V72.31, ICD10: Z01.419 (primary diagnosis) - Completed pelvic and breast exam - Encouraged monthly BSE - Follow up for annual exam in one year. 2. Encounter for Papanicolaou smear for cervical cancer screening - ICD9: V76.2, ICD10: Z12.4 - Completed pelvic and breast exam - Encouraged monthly BSE - Follow up for annual exam in one year. - PAP FLUID CERVICAL SCREENING 3. Fibrocystic breast changes, bilateral - ICD9: 610.1, ICD10: N60.11, N60.12 MD teresita Mckeon documented in this encounter [facility] 02-28-2022 Instructions Mike Fairchild MD - 02/28/2022 9:29 AM EDT Please call the office before going to the hospital. If you are , go to the ER at the [facility]. Do not go to the outlying ER s ([facility] or [place]). If you need to go to an ER and cannot or will not go downtown, please use one of [facility] ER s ([facility], [place] or [facility]). documented in this encounter [facility] 02-28-2022 History and physical note Patient concerned about FCBD. Mammogram normal in October. Discussed SBE. Patient not due for pap until July. Patient notified. Mike Fairchild MD documented in this encounter [facility] 07-05-2021 Note HNO ID: [id number] Author: Mike Fairchild MD Service: ? Author Type: Physician Type: Progress Notes Filed: 07/05/2021 8:51 AM Note Text: Iban Rider is a 41 year old female who presents for annual exam. No problems. Periods might be getting slightly closer together. Only one episode of intermenstrual vaginal spotting for one day. FCBD persists but no discrete lump. Also worried about possible lump near urethra. Mammogram due in November per patient. ALLERGIES Allergen Reactions - Amoxicillin Rash Current Outpatient Medications Medication Sig - cetirizine (ZYRTEC) 5 mg tablet Take 5 mg by mouth once daily. - MULTIVITAMIN/IRON/FOLIC ACID (CENTRUM ULTRA WOMEN'S ORAL) Take by mouth once daily. - Cholecalciferol, Vitamin D3, 2,000 unit cap Take by mouth. - CALCIUM ORAL Take by mouth. - levothyroxine (LEVOTHROID) 75 mcg tablet Take 75 mcg by mouth once daily. - triamcinolone acetonide topical 0.5 % ointment - VITAFOL ULTRA 29 mg iron- 1 mg-200 mg cap Take 1 capsule by mouth once daily. - Cholecalciferol, Vitamin D3, 2,000 unit cap Take 1 capsule by mouth. - naproxen (NAPROSYN) 375 mg tablet Take 375 mg by mouth as needed. - cyclobenzaprine (FLEXERIL) 10 mg tablet Take 10 mg by mouth once daily. - VIT A/VIT C/VIT E/ZINC/COPPER (PRESERVISION AREDS ORAL) Take by mouth as needed. - magnesium sulfate 100 mg cap Take by mouth. - LORazepam (ATIVAN) 0.5 mg tab Take by mouth three times daily as needed. No current facility-administered medications for this visit. Subjective Obstetric History T0 L0 SAB0 TAB0 Ectopic0 Multiple0 Live Births0 Past Gynecological History: negative PAST MEDICAL HISTORY Diagnosis Date - Anxiety - Breast mass 05/2015 right - Elevated DHEA (HCC) - Hyperprolactinemia (HCC) - Hypothyroid - Left breast mass 08/04/2015 - Left breast mass 06/2016 cysts - Vitamin D deficiency 03/01 PAST SURGICAL HISTORY Procedure Laterality Date - BREAST BIOPSY INCISIONAL LEFT 05/29/2014 - EXTRACTION, ERUPTED TOOTH OR EXPOSED ROOT (ELEVATION AND/OR FORCEPS REMOVAL) 1994 - PAST SURGICAL HISTORY OF 2001 dental surgery Social History Tobacco Use - Smoking status: Never Smoker - Smokeless tobacco: Never Used Vaping Use - Vaping Use: Never used Substance Use Topics - Alcohol use: No - Drug use: No FAMILY HISTORY Problem Relation Age of Onset - Thyroid Paternal Aunt - Ischemic Heart Disease Father - Hypertension Father - Lipids Father - Cancer Paternal Grandfather prostate - Cancer Paternal Uncle skin - Breast Cancer Maternal Grandmother - Breast Cancer Sister Review of Symptoms negative Objective BP 97/69 Pulse 60 Temp 96.8 Ht 5' 3 (1.60m) Wt 110 lb (49.9kg) SpO2 99% LMP 06/19/2021 BMI 19.49 kg/(m2). Physical Exam - restricted to breast and pelvic exam BREAST - FCBD bilaterally as before. No discrete lump GROUP FITNESS INSTRUCTOR: Vulva - normal, [place]'s duct palpable bilaterally. Patient states this has not changed. Instructed to observe for any growth or assymetry. Vagina - normal - cervix nulliparous, Pap done, Uterus - midplane, adnexa neg ASSESSMENT/PLAN: 1. Encounter for annual routine gynecological examination - ICD9: V72.31, ICD10: Z01.419 (primary diagnosis) - Completed pelvic and breast exam - Encouraged monthly BSE - Follow up for annual exam in one year. 2. Encounter for Papanicolaou smear for cervical cancer screening - ICD9: V76.2, ICD10: Z12.4 - Completed pelvic and breast exam - Encouraged monthly BSE - Follow up for annual exam in one year. - PAP FLUID CERVICAL SCREENING Mike Fairchild MD [facility] documented as of this encounter (statuses as of 02/28/2022) [facility]09-02-2014 History of Past illness Narrative* Problem Noted Date Resolved Date Lump or mass in breast 05/20/2014 4 Breast mass 02/20/2014 06/17/2014 documented as of this encounter (statuses as of 07/11/2022) [facility]2014 History of Past illness Narrative* Problem Noted Date Resolved Date Lump or mass in breast 05/20/2014 4 Breast mass 02/20/2014 06/17/2014 documented as of this encounter (statuses as of 01/09/2023) [facility]2014 History of Past illness Narrative* Problem Noted Date Resolved Date Lump or mass in breast 05/20/2014 4 Breast mass 02/20/2014 06/17/2014 documented as of this encounter (statuses as of 01/09/2023) [facility] History of Past illness Narrative* Problem Noted Date Resolved Date Lump or mass in breast 05/20/2014 4 Breast mass 02/20/2014 06/17/2014 documented as of this encounter (statuses as of 01/11/2023) [facility] Diagnosis Fibrocystic breast changes, bilateral- Primary [facility] Diagnosis Encounter for annual routine gynecological examination- Primary Encounter for Papanicolaou smear for cervical cancer screening Fibrocystic breast changes, bilateral [facility] Diagnosis Breast screening- Primary Breast screening, unspecified [facility]ative)* Diagnostic Procedure Only (Routine) - Pending Review Specialty Diagnoses / Procedures Referred By Contac t Referred To Contact [facility] Diagnoses Breast screening Procedures [facility] DIAGNOSTIC MAMMOGRAPHY COMPUTER-AIDED DETCJ BI Devorah, Mike Lu MD [address] [place] [address] [facility] [address] [place] [address] Referral ID Status Reason Start Date Expiration Date Visits Requested Visits Authorized [id number] Pending Review Auto-Generat ed Referral 01/09/2023 02/03/2024 1 1 [facility] Summary Purpose Family History No Family History Records FoundNo Family History Records FoundNo Family History Records FoundNo Family History Records Found Advance Directives No Advanced Directives Records FoundNo Advanced Directives Records FoundNo Advanced Directives Records FoundNo Advanced Directives Records Found Additional Source Comments INFORMATION SOURCE (unrecogn ized section and content) DATE CREATED AUTHOR AUTHOR'S ORGANIZ ATION 11/01/2020 [facility] DATE CREATED AUTHOR AUTHOR'S ORGANIZ ATION 02/28/2022 [facility] DATE CREATED AUTHOR AUTHOR'S ORGANIZ ATION 06/27/2023 [facility] Source Comments (unrecognize d section and content) In the event this informatio n is protected by the Federal Confidentiality of Alcohol and Drug Abuse Patient Records regulations: The Federal rules restrict any use of the information to criminally investigate or prosecute any alcohol or drug abuse patient.[facility] the event this information is protected by the Federal Confidentiality of Alcohol and Drug Abuse Patient Records regulations: The Federal rules restrict any use of the information to criminally investigate or prosecute any alcohol or drug abuse patient.[facility] the event this information is protected by the Federal Confidentiality of Alcohol and Drug Abuse Patient Records regulations: The Federal rules restrict any use of the information to criminally investigate or prosecute any alcohol or drug abuse patient.[facility] the event this information is protected by the Federal Confidentiality of Alcohol and Drug Abuse Patient Records regulations: The Federal rules restrict any use of the information to criminally investigate or prosecute any alcohol or drug abuse patient.[facility] the event this information is protected by the Federal Confidentiality of Alcohol and Drug Abuse Patient Records regulations: The Federal rules restrict any use of the information to criminally investigate or prosecute any alcohol or drug abuse patient.[facility] Reason for Visit (unrecogniz ed section and content) Specialty Diagnoses / Procedures Referred By Contabigail t Referred To Contact GANG WORKER Diagnoses annual Procedures ESTABLISHED LEVEL 1 VISIT annual Pap, Mike Lu MD [address] [place] [address] Senior Sql Server Database Developer Ag [address] [address] Referral ID Status Reason Start Date Expiration Date Visits Requested Visits Authorized [id number] Pending Review OON/Self Pay Override 02/10/2022 05/11/2022 1 1 Reason Comments 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 Elastic 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 Exam Menses are becoming irregular,no pain Specialty Diagnoses / Procedures Referred By Contac t Referred To Contact GANG WORKER Diagnoses annual Procedures annual Pap, Mike Lu MD [address] [place] [address] Senior Sql Server Database Developer Ag [address] [address] Referral ID Status Reason Start Date Expiration Date Visits Requested Visits Authorized [id number] Pending Review OON/Self Pay Override 05/31/2022 07/30/2022 1 1 Reason Comments Orders Reason Comments Patient Question Reason Comments Orders Care Teams (unrecognized sec tion and content) Extrusion Engineer Relationship Specialty Start Date End Date Sarah Antony [address] [facility] [address] [place] [address] PCP - General Family Medicine 12/31/18 Extrusion Engineer Relationship Specialty Start Date End Date Sarah Antony [address] [facility] [address] [place] [address] PCP - General Family Medicine 12/31/18 Extrusion Engineer Relationship Specialty Start Date End Date Sarah Antony [address] [facility] [address] [place] [address] PCP - General Family Medicine 12/31/18 FOR RECORDS PERTAINING TO PATIENTS WHO ARE OR HAVE BEEN ENROLLED IN A CHEMICAL DEPENDENCY/SUBSTANCEABUSE PROGRAM, SOME INFORMATION MAY BE OMITTED. This clinical summary was aggregated from multiple sources. Caution should be exercised in using it in the provision of clinical care. This summary normalizes information from multiple sources, and as a consequence, information in this document may materially change the coding, format and clinical context of patient data. In addition, data may be omitted in some cases. CLINICAL DECISIONS SHOULD BE BASED ON THE PRIMARY CLINICAL RECORDS. [facility]. provides no warranty or guarantee of the accuracy or completeness of information in this document.
--- NOTE | 2023-10-10 09:33 | US_ITS ---
STUDY: ULTRASOUND BREAST - LEFT REASON FOR EXAM: Female, 43 years old. History of left breast cysts. TECHNIQUE: Axial and longitudinal images of the LEFT breast were performed with a high resolution ultrasound transducer. # OF IMAGES: 6 COMPARISON: Comparison is made with prior mammogram done earlier in the day as well as prior sonogram of the left breast dated February 08, 2023. FINDINGS: LEFT Breast: There is a 9 mm x 11 mm x 5 mm cyst at the 4:00 position breast at 3 cm from the nipple. US/Breast Limited Unilateral IMPRESSION: Stable 9 mm x 11 mm x 5 mm cyst at the 4:00 position of the breast at 3 cm from the nipple. ASSESSMENT CATEGORY: BIRADS Category 2: Benign. A letter regarding these results will be sent to the patient by the facility within 30 days. Electronically Signed: Ibrahima Rae MD at 15:25 EST ,
== END | disposition home or self-care (01) ==
PROVIDERS: PCP Family Medicine; Referring Provider Nurse Practitioner Family; Visit Provider Nurse Practitioner Family
DX: N60.02 Solitary cyst of left breast (principal)
CPT/HCPCS: 76642; 77061; 77065; G0279

== ENCOUNTER → 2024-01-23 | Outpatient (CLI) | payer OTHER, SELFPAY ==
[2024-01-23 10:00] LABS: Absolute Lymphocyte Count 1.95 X10^3/uL (0.83-4.51); Absolute Neutrophil Count 3.9 X10^3/uL (2.0-7.7); Basophil# 0.09 X10^3/uL; Basophil% 1.3 % (0-1); Eosinophil# 0.18 X10^3/uL; Eosinophils% 2.7 % (0-5); Hematocrit 42.2 % (37-47); Hemoglobin 13.7 g/dL (12.0-15.0); Lymphocyte # 1.95 X10^3/ul (0.83-4.51); Lymphocyte % 29.2 % (19-41); Mean Corp Hgb Conc 32.5 g/dL (32-36); Mean Corpuscular Hgb 29.5 pg (27.0-32.0); Mean Corpuscular Volume 90.9 fL (81-99); Mean Platelet Vol. 8.9 fl (6.2-12.0); Monocyte# 0.59 X10^3/uL; Monocyte% 8.8 % (0-10); NRBC Flagged by Analyzer 0 % (0-5); Neutrophil # 3.86 X10^3/uL (2.7-7.7); Neutrophil % 57.9 % (47-70); Platelet Count 296 K/mm3 (150-450); RBC Distribution Width CV 12.4 % (11.6-14.6); Red Blood Count 4.64 M/mm3 (4.2-5.4); White Blood Count 6.7 K/mm3 (4.4-11.0)
[2024-01-23 10:28] LABS: Vitamin D,25 Hydroxy 67.1 ng/mL
[2024-01-23 10:47] LABS: AST(SGOT) 26 U/L (15-37); Alanine Aminotransfer ALT/SGPT 25 U/L (13-56); Albumin, Serum 3.7 g/dL (3.2-5.0); Alkaline Phosphatase 85 U/L (45-117); Anion Gap 5 (5-15); BUN 11 mg/dL (7-18); BUN/Creat Ratio 16.1 RATIO (10-20); Calcium,Total 8.7 mg/dL (8.5-10.1); Chloride 108 mmol/L (98-107); Cholesterol 141 mg/dL (200); Creatinine, Serum 0.68 mg/dL (0.55-1.02); EST Glomerular Filtration Rate 99 mL/min (>60); Est Glom Filt Rate - Afr Amer 120 mL/min (>60); Globulin 3.6 g/dL (2.2-4.2); Glucose 90 mg/dL (74-106); High Density Lipoprotein 55 mg/dL; Potassium 3.8 mmol/L (3.5-5.1); Protein, Total 7.3 g/dL (6.4-8.2); Sodium Level 139 mmol/L (136-145); T4 Free Direct 1.17 ng/dL (0.76-1.46); Thyroid Stim Hormone (TSH) 3.29 uIU/mL (0.358-3.74); Triglycerides 41 mg/dL; Very Low Density Lipoprotein 8 mg/dL (5-40)
== END | disposition home or self-care (01) ==
LOC: MFPLAB 08:33
PROVIDERS: PCP Family Medicine; Visit Provider Family Medicine
DX: E03.8 Other specified hypothyroidism (principal); E55.9 Vitamin D deficiency, unspecified
CPT/HCPCS: 36415; 80053; 80061; 82306; 84439; 84443; 85025

== ENCOUNTER → 2024-04-04 | Outpatient (CLI) | payer OTHER, SELFPAY | END | disposition home or self-care (01) | LOC: MFPLAB 11:48 | PROVIDERS: PCP Family Medicine; Visit Provider Family Medicine | DX: N64.52 Nipple discharge (principal) | CPT/HCPCS: 36415; 84146 ==

== ENCOUNTER → 2024-05-28 | Outpatient (CLI) | payer OTHER, SELFPAY ==
--- NOTE | 2024-05-28 16:29 | BI_ITS ---
MAMMOGRAPHY - BILATERAL SCREENING REASON FOR EXAM: Female, 44 years old. Routine annual screening examination. PERTINENT HISTORY: Aunts with breast cancer. TECHNIQUE: Digital bilateral breast presley (3D mammographic acquisition) in the CC and MLO projections. 2-D mediolateral oblique (MLO) and craniocaudad (CC) views of both breasts were obtained. CAD: Full Field Digital Mammography with Computer Added Detection was performed. COMPARISON: Comparison is made with prior study February 07, 2023 and May 05, 2022. FINDINGS: Breast Composition: The breasts are extremely dense, which lowers the sensitivity of mammography. There are no dominant masses or suspicious calcifications. No other significant abnormalities are identified. There has been no significant change since the prior study. BI/SCRN MAMM (CAD)W/PRESLEY BILAT IMPRESSION: Stable bilateral screening mammogram. Yearly follow-up mammogram recommended. (A) ASSESSMENT CATEGORY: BIRADS Category 1: Negative. A letter regarding these results will be sent to the patient by the facility within 30 days. Approximately 10% of breast cancers are not detected by mammography. A normal mammogram should not delay biopsy of a clinically suspicious abnormality. [id number] Electronically Signed: Ibrahima Rae MD at 8:27 EDT ,
== END | disposition home or self-care (01) ==
LOC: OPBI 05-29 06:59
PROVIDERS: PCP Family Medicine; Referring Provider Family Medicine; Visit Provider Family Medicine
DX: Z12.31 Encounter for screening mammogram for malignant neoplasm of breast (principal)
CPT/HCPCS: 77063; 77067

== ENCOUNTER → 2024-05-31 | Outpatient (CLI) | payer OTHER, SELFPAY ==
--- NOTE | 2024-05-31 16:25 | US_ITS ---
INDICATION: Excessive and frequent menstruation with irregular cycle EXAMINATION: Ultrasound US Pelvis Non OB Complete With Transvaginal Imaging TECHNIQUE: Transabdominal and transvaginal pelvic ultrasound was performed. Grayscale, spectral waveform, and color flow Doppler evaluation of the adnexa. COMPARISON: FINDINGS: UTERUS: Anteverted. The uterus measures 8.2 x 4.9 x 5.0 cm. There is no uterine mass. The endometrial stripe measures 14.5 mm in AP diameter with heterogeneous hyperechogenicity. There is a 1.6 x 1.4 cm hyperechoic nodular structure within the endometrial cavity RIGHT OVARY: 3.9 x 3.8 x 2.1 cm. There is a 1.9 x 1.7 x 1.6 cm complex cystic nodule. There is normal arterial inflow and venous outflow present in the right ovary. LEFT OVARY: 3.4 x 2.4 x 1.6 cm. Non-enlarged, normal echogenicity. There is normal arterial inflow and venous outflow present in the left ovary. FREE FLUID: None. US/Pelvic w/ Transvaginal IMPRESSION: Slightly thickened heterogeneous endometrium with hyperechoic nodular structure. Complex right ovarian cystic nodule. Electronically Signed: Cristo Hernandez DO at 20:32 EDT Reading Location ID and State: [facility] / [place] Tel [phone], Service support ,
== END | disposition home or self-care (01) ==
LOC: US 16:23
PROVIDERS: PCP Family Medicine
DX: N92.1 Excessive and frequent menstruation with irregular cycle (principal)
CPT/HCPCS: 76830; 76856

== ENCOUNTER → 2024-07-22 | Outpatient (CLI) | payer OTHER, SELFPAY ==
[2024-07-22 10:11] LABS: Absolute Lymphocyte Count 2.05 X10^3/uL (0.83-4.51); Absolute Neutrophil Count 4.2 X10^3/uL (2.0-7.7); Basophil# 0.07 X10^3/uL; Eosinophil# 0.16 X10^3/uL; Eosinophils% 2.2 % (0-5); Hemoglobin 13.3 g/dL (12.0-15.0); Lymphocyte # 2.05 X10^3/ul (0.83-4.51); Lymphocyte % 28.2 % (19-41); Mean Corp Hgb Conc 32.4 g/dL (32-36); Mean Corpuscular Hgb 29.6 pg (27.0-32.0); Mean Corpuscular Volume 91.1 fL (81-99); Mean Platelet Vol. 9.6 fl (6.2-12.0); NRBC Flagged by Analyzer 0 % (0-5); Neutrophil # 4.16 X10^3/uL (2.7-7.7); Neutrophil % 57.3 % (47-70); Platelet Count 293 K/mm3 (150-450); RBC Distribution Width CV 12.5 % (11.6-14.6); RBC Distribution Width SD 41.4 fl (35.1-43.9); White Blood Count 7.3 K/mm3 (4.4-11.0)
[2024-07-22 10:36] LABS: Cholesterol 119 mg/dL (200); High Density Lipoprotein 58 mg/dL; T4 Free Direct 1.11 ng/dL (0.76-1.46); Triglycerides 68 mg/dL; Very Low Density Lipoprotein 14 mg/dL (5-40)
== END | disposition home or self-care (01) ==
PROVIDERS: PCP Family Medicine; Referring Provider Family Medicine; Visit Provider Family Medicine
DX: E03.8 Other specified hypothyroidism (principal)
CPT/HCPCS: 36415; 80061; 84439; 84443; 85025

== ENCOUNTER → 2024-12-17 | Outpatient (CLI) | payer OTHER, SELFPAY ==
--- NOTE | 2024-12-17 07:58 | US_ITS ---
PROCEDURE: BREAST LIMITED UNILATERAL 12/17/2024 REASON FOR EXAM: BREAST PAIN TECHNIQUE: Targeted left breast ultrasound. COMPARISON: Comparison is made with prior mammogram dated May 28, 2024. FINDINGS: Left breast ultrasound was targeted to the lower outer quadrant of the left breast.. There is a 9 mm x 9 mm x 7 mm cyst at the 4 o'clock position of the breast at 3 cm from the nipple. US/Breast Limited Unilateral IMPRESSION: Impression: 9 mm x 9 mm x 7 mm cyst at the 4 o'clock position of the left breas t at 3 cm from the nipple. Birads: BI-RADS 2: BENIGN. RECOMMEND ANNUAL MAMMOGRAPHIC SCREENING. Reading Location: [facility]
== END | disposition home or self-care (01) ==
PROVIDERS: PCP Family Medicine
DX: N64.4 Mastodynia (principal)
CPT/HCPCS: 76642

== ENCOUNTER → 2025-01-28 | Outpatient (CLI) | payer OTHER, SELFPAY ==
[2025-01-28 10:43] LABS: ALB/GLOB Ratio 1.5 RATIO (0.9-2.4); AST(SGOT) 24 U/L (<=31); Alanine Aminotransfer ALT/SGPT 20 U/L (<=34); Albumin, Serum 4.1 g/dL (3.5-5.0); Alkaline Phosphatase 85 U/L (35-104); Anion Gap 10 (5-15); BUN 13 mg/dL (4-19); BUN/Creat Ratio 21.5 RATIO (10-20); Calcium,Total 8.9 mg/dL (7.6-11.0); Carbon Dioxide 23.8 mmol/L (21.0-32.0); Chloride 105 mmol/L (98-108); Creatinine, Serum 0.61 mg/dL (0.70-1.20); EST Glomerular Filtration Rate 113 (>60); Globulin 2.7 g/dL (2.2-4.2); Glucose 89 mg/dL (70-99); Protein, Total 6.8 g/dL (5.9-8.4); Sodium Level 139 mmol/L (133-145); Total Bilirubin 0.31 mg/dL (0.00-1.30)
== END | disposition home or self-care (01) ==
LOC: MTLAB 07:50
PROVIDERS: PCP Family Medicine; Referring Provider Family Medicine; Visit Provider Family Medicine
DX: E55.9 Vitamin D deficiency, unspecified (principal); E03.8 Other specified hypothyroidism
CPT/HCPCS: 36415; 80053; 84439; 84443

== ENCOUNTER → 2025-06-03 | Outpatient (CLI) | payer OTHER, SELFPAY ==
--- NOTE | 2025-06-03 16:15 | BI_ITS ---
EXAM: SCRN MAMM (CAD)W/PRESLEY BILAT DATE: 06/03/2025 CLINICAL HISTORY: F, Age 45 y/o , SCREENING No family history. TECHNIQUE: Procedure Code: [id number] Modality: MG Procedure: SCRN MAMM (CAD)W/PRESLEY BILAT COMPARISON: Prior exam(s) dated May 28, 2024.. FINDINGS: TISSUE DENSITY: The breasts are extremely dense, which lowers the sensitivity of mammography. Bilateral Breast Mammographic Findings: No significant masses, calcifications or other abnormalities are identified. No suspicious masses, areas of developing architectural distortion, or suspicious calcifications. There has been no significant interval change. BI/SCRN MAMM (CAD)W/PRESLEY BILAT IMPRESSION: Stable bilateral screening mammogram. OVERALL FINAL ASSESSMENT BI-RADS 1: NEGATIVE. RECOMMENDATION: Routine annual follow-up in 1 Year A letter with findings and recommendations will be mailed to the patient. Reading Location: [place] [id number]
== END | disposition home or self-care (01) ==
PROVIDERS: PCP Family Medicine; Referring Provider Family Medicine; Visit Provider Family Medicine
DX: Z12.31 Encounter for screening mammogram for malignant neoplasm of breast (principal)
CPT/HCPCS: 77063; 77067

== ENCOUNTER → 2025-08-06 | Outpatient (CLI) | payer OTHER, SELFPAY ==
--- OUTSIDE RECORDS SUMMARY | 2025-08-06 07:48 | XMS RPT_ITS | CCD ---
Author Organization [facility] Care Team Providers Care Engineering Teacher Name Role Phone Nikolai Leo Unavailable Unavailable PROVIDER, UNKNOWN Unavailable Unavailable Leo Ocampo Unavailable Unavailable Sarah Antony Primary Care Provider [phone] Sarah Antony Primary Care Provider [phone] Sarah Antony Primary Care Provider Dr. Sarah Antony Primary Care Provider Dr. Sarah Antony Referring Provider Dr. Maria Elena Moon Attending Provider Sarah Antony MD Primary Care Provider SARAH ANTONY Primary Care Unavailable PAP, RENNY SCHREIBER Referring Unavailable SARAH ANTONY Primary Care Unavailable PAP, RENNY SCHREIBER Attending Unavailable PAP, RENNY SCHREIBER Referring Unavailable COLA, NITISH ESCOBAR Attending Unavailable SARAH ANTONY Primary Care Unavailable THELMA ARCHER Referring Unavailabl e COLA, NITISH ESCOBAR Admitting Unavailable COLA, NITISH ESCOBAR Attending Unavailable SARAH ANTONY Primary Care Unavailable SARAH ANTONY Primary Care Unavailable PAP, RENNY SCHREIBER Attending Unavailable PAP, RENNY SCHREIBER Referring Unavailable Dr. Sarah Antony MD Primary Care Provider Kaleborrow RACHEL-Sidney Randall Attending Provider [phone] [place] Sidney CID Referring Provider Dr. Sarah Antony MD Referring Provider [phone] Dr. Maria Elena Moon MD Attending Provider [phone] Dr. Sarah Antony MD Attending Provider Sarah Antony Primary Care Unavailable Lissaow, Sidney Attending Unavailable Amanda, Sidney Referring Unavailable Sarha Antony Referring Unavailable Sarah Antony Primary Care Unavailable Sarah Antony Attending Unavailable Sarah Antony Primary Care Unavailable Sarah Antony Attending Unavailable Sarah Antony Referring Unavailable Sarah Antony Primary Care Unavailable Sarah Antony Attending Unavailable Sarah Antony Referring Unavailable Sarah Antony Primary Care Unavailable Maria Elena Moon Attending Unavailable Sarah Antony Referring Unavailable Odessa REAL, Dr. Sarah Jacques Primary Care Physician Dr. Sarah Antony MD Attending Physician Dr. Sarah Antony MD Referring Provider [phone] Allergies Allergy Classification Reported Allergen(s) Allergy Type Date of Onset Reaction(s) Facility (20 sources) Amoxicillin; Translations: [AMOXICILLIN] Drug Allergy 01-28-2013 [facility] (1 source) Amoxicillin Drug Allergy 12-24-2024 [facility] Repository Medications Current Medications Medication Drug Class(es) Dates Sig (Normalized) Sig (Original) augmented betamethasone 0.0005 mg/mg topical ointment (8 sources) Corticosteroid Start: 02-10-2023 Start: 02-10-2023 Betamethasone, Augmented Active G TOPICAL February 10, 2023 12:00am Calcium (15 sources) Phosphate Binder, Calcium CALCIU M ORAL Take by mouth. Active CALCIUM ORAL Sharath e by mouth. 0 Active Comment on above: Take by mouth. calcium carbonate 1250 mg oral tablet (2 sources) Start: 12-24-2024 take 1 tablet by mouth once daily cetirizine hydrochloride 5 mg oral tablet (20 sources) Histamine-1 Receptor Antagonist Start: 02-10-2023 take 1 tablet by mouth once daily as needed Comment on above: Take 5 mg by mouth o nce daily. cholecalciferol 0.05 mg oral capsule (20 sources) Vitamin D Start: 02-10-2023 take 1 capsule by mouth once daily Cholecalciferol, Vitamin D3, 2,000 unit cap Take by mouth. Active Comment on above: Take by mouth. Take 1 capsule by [facility]. cyclobenzaprine hydrochloride 10 mg oral tablet (14 sources) Muscle Relaxant take 1 tablet by mouth once daily cyclobenzaprine (FLEXERIL) 10 mg tablet Take 10 mg by mouth once daily. Active Comment on above: Take 10 mg by mouth once daily. levothyroxine sodium 0.088 mg oral tablet (20 sources) l-Thyroxine Start: 07-24-20 24 take 1 tablet by mouth once levothyroxine (SYNTHROID) 88 mcg tablet Take 1 tablet by mouth every afternoon. 07/24/2024 Active Start: 02-10-2023 Start: 02-10-2023 Levothyroxine Active EACH PO February 10, 2023 12:00am Comment on above: Take 75 mcg by mouth once daily. LORazepam 0.5 mg oral tablet (14 sources) Benzodiazepine LORazepam (ATIVA N) 0.5 mg tab Indications: Left breast mass Take by mouth three times daily as needed. Active Comment on above: Take by mouth three times daily as needed. magnesium sulfate 100 mg oral capsule (14 sources) magnesium sulfat e 100 mg cap Take by mouth. Active Comment on above: Take by mouth. MULTIVITAMIN/IRON/FOLIC ACID (CENTRUM ULTRA WOMEN'S ORAL) (15 sources) MULTIVITAMIN/IRO N/FOLIC ACID (CENTRUM ULTRA WOMEN'S ORAL) Take by mouth once daily. Active MULTIVITAMIN/IRO N/FOLIC ACID (CENTRUM ULTRA WOMEN'S ORAL) Take by mouth once daily. 0 Active Comment on above: Take by mouth once d aily. naproxen 375 mg oral tablet (14 sources) Nonsteroidal Anti-inflammatory Drug naproxen (NAPROSY N) 375 mg tablet Take 375 mg by mouth as needed. Active Comment on above: Take 375 mg by mouth as needed. triamcinolone acetonide 0.005 mg/mg topical ointment (15 sources) Corticosteroid Start: 06-30-2021 triamcinolone acetonide topical 0.5 % ointment 06/30/2021 Active VIT A/VIT C/VIT E/ZINC/COPPER (PRESERVISION AREDS ORAL) (14 sources) VIT A/VIT C/VIT E/ZINC/COPPER (PRESERVISION AREDS ORAL) Take by mouth as needed. Active VIT A/VIT C/VIT E/ZINC/COPPER (PRESERVISION AREDS ORAL) Take by mouth as needed. 0 Active Comment on above: Take by mouth as nee ded. VITAFOL ULTRA 29 mg iron- 1 mg-200 mg cap (15 sources) Start: 12-19-2018 take 1 capsule by mouth once daily VITAFOL ULTRA 29 mg iron- 1 mg-200 mg cap Take 1 capsule by mouth once daily. 3 12/19/2018 Active Comment on above: Take 1 capsule by mo uth once daily. Problems Active Problems Problem Classification Problem Date Documented Da te Episodic/Chronic Menstrual disorders (3 sources) Menometrorrhagia; Translations: [Excessive and frequent menstruation with irregular cycle] Onset: 07-15-2024 05-27-2024 Chronic Nonmalignant breast conditions (2 sources) Fibrocystic changes of bilateral breasts; Translations: [Diffuse cystic mastopathy of right breast] Chronic Nutritional deficiencies (16 sources) Vitamin D deficiency; Translations: [Vitamin D deficiency, unspecified] Onset: 02-20-2015 02-20-2015 Chronic Other female genital disorders (1 source) Abnormal uterine bleeding due to endometrial polyp; Translations: [Abnormal uterine and vaginal bleeding, unspecified] 07-29-2024 Chronic Other female genital disorders (5 sources) Abnormal uterine bleeding; Translations: [Other specified abnormal uterine and vaginal bleeding] Onset: 08-12-2024 08-12-2024 Chronic Other female genital disorders (1 source) Other specified abnormal uterine and vaginal bleeding; Translations: [DUB (dysfunctional uterine bleeding)] Onset: 08-12-2024 Chronic Other female genital disorders (1 source) Abnormal uterine and vaginal bleeding, unspecified; Translations: [Abnormal uterine bleeding due to endometrial polyp] Onset: 07-29-2024 Chronic Other female genital disorders (8 sources) Polyp of corpus uteri; Translations: [Polyp of corpus uteri] Onset: 07-29-2024 08-12-2024 Episodic Other female genital disorders (1 source) Polyp of corpus uteri; Translations: [Polyp of corpus uteri] 08-13-2024 Episodic Other screening for suspected conditions (not mental disorders or infectious disease) (1 source) Endometrium thickened; Translations: [Abnormal findings on diagnostic imaging of other specified body structures] 07-01-2024 Chronic Thyroid disorders (16 sources) Hypothyroidism; Translations: [Hypothyroidism, unspecified] Onset: 01-28-2013 01-28-2013 Chronic Unclassified (7 sources) Other abnormal and inconclusive findings on diagnostic imaging of breast; Translations: [Patient encounter status] Onset: 06-22-2017 Episodic Past or Other Problems Problem Classification Problem Date Documented Da te Episodic/Chronic Nonmalignant breast conditions (20 sources) Lump in left breast; Translations: [Unspecified lump in the left breast, unspecified quadrant] Onset: 02-20-2014 Resolved: 06-17-2014 08-04-2015 Episodic Comment on above: Ultrasound showed le ft breast benign cyst, no masses seen Other skin disorders (15 sources) Hirsutism; Translations: [Hirsutism] Onset: 01-28-2013 01-28-2013 Episodic Other skin disorders (15 sources) Acne; Translations: [Acne, unspecified] Onset: 01-28-2013 01-28-2013 Episodic Results Test Name Value Interpretation Reference Range Facility Breast imaging reportOrdered By: Ibrahima Rae on 06-04-2025 Study report [facility] Imaging Services [address] [place] [address] SCRN MAMM (CAD)W/PRESLEY BILAT MR#: [id number] Acct: [id number] Name: IBAN RIDER Rep #: [id number] : 1980 F 45 From: Mihai Rae MD PCP: Dr. Sarah Antony MD Status: RE G CLI Study:SCRN MAMM (CAD)W/PRESLEY BILAT Date of Exa m: 06/03/25 Exam# [id number] Ordering Dr: Sarah Antony MD EXAM: SCRN MAMM (CAD)W/PRESLEY BILAT DATE: 06/03/2025 CLINICAL HISTORY: F, Age 45 y/o , SCREENING No family history. TECHNIQUE: Procedure Code: BISMWCADBTOM Modality: MG Procedure: SCRN MAMM (CAD)W/PRESLEY BILAT COMPARISON: Prior exam(s) dated May 28, 2024.. FINDINGS: TISSUE DENSITY: The breasts are extremely dense, which lowers the sensitivity ofmammography. Bilateral Breast Mammographic Findings: No significant masses, calcifications or other abnormalities are identified. No suspicious masses, areas of developing architectural distortion, or suspicious calcifications. There has been no significant interval change. BI/SCRN MAMM (CAD)W/PRESLEY BILAT IMPRESSION: Stable bilateral screening mammogram. OVERALL FINAL ASSESSMENT BI-RADS 1: NEGATIVE. RECOMMENDATION: Routine annual follow-up in 1 Year A letter with findings and recommendations will be mailed to the patient. Reading Location: [place] [address] CC: Dr. Sarah Antony MD ~ Cytometry Technologist: Signed [facility] SCRN MAMM (CAD)W/PRESLEY BILATo n 06-03-2025 SCRN MAMM (CAD)W/PRESLEY BILAT [facility] Imaging Services [address] [place], [place] [id number] SCRN MAMM (CAD)W/PRESLEY BILAT MR#: [id number] Acct: [id number] Name: IBAN RIDER Rep #: [id number] : 1980 F 45 From: Ibrahima javed MD PCP: [facility] SCRN MAMM (CAD)W/PRESLEY BILAT Date of Exam: 05/19 03/12 Exam# [id number] Ordering Dr: Sarah Antony MD EXAM: SCRN MAMM (CAD)W/PRESLEY BILAT DATE: 06/03/2025 CLINICAL HISTORY: F, Age 45 y/o , SCREENING No family history. TECHNIQUE: Procedure Code: BISMWCADBTOM Modality: MG Procedure: SCRN MAMM (CAD)W/PRESLEY BILAT COMPARISON: Prior exam(s) dated May 28, 2024.. FINDINGS: TISSUE DENSITY: The breasts are extremely dense, which lowers the sensitivity of mammography. Bilateral Breast Mammographic Findings: No significant masses, calcifications or other abnormalities are identified. No suspicious masses, areas of developing architectural distortion, or suspicious calcifications. There has been no significant interval change. BI/SCRN MAMM (CAD)W/PRESLEY BILAT IMPRESSION: Stable bilateral screening mammogram. OVERALL FINAL ASSESSMENT BI-RADS 1: NEGATIVE. RECOMMENDATION: Routine annual follow-up in 1 Year A letter with findings and recommendations will be mailed to the patient. Reading Location: [place] [address] CC: Dr. Sarah Antony MD Cytometry Technologist: Signed Normal [facility] Anion gap in Serum or Plasma Ordered By: Sarah Antony on 01-28-2025 Anion gap [Moles/Vol] 10 mmol/L 5-15 [facility] BUN/creatinine ratioOrdered By: Sarah Antony on 01-28-2025 Urea nitrogen/Creatinine [Mass ratio] 21.5 mg/mg High 10-20 [facility] Bilirubin, totalOrdered By: Sarah Antony on 01-28-2025 Bilirubin [Mass/Vol] 0.31 mg/dL 0.00-1.30 [facility] CBC W/Diff, Automatedon 01-16 Absolute Neut Normal 2.0-7.7 [facility] Comment on above: Order Comment: Order Date: 01/17/25 Order Info: 0786-1 - CMP Order Info: 301-3 - TSH Order Info: 7 - T4F Result Comment: OLD ORDERS 07/2024 Performed By: #### L 506.0400, [id number], [id number] #### [facility] [address] [place], [address] HCT Normal 37-47 [facility] Comment on above: Order Comment: Order Date: 01/17/25 Order Info: 0786-1 - CMP Order Info: 3016-3 - TSH Order Info: 302-7 - T4F Result Comment: OLD ORDERS 07/2024 Performed By: #### L 506.0400, [id number], [id number] #### [facility] [address] [place], [address] HGB Normal 12.0-15.0 [facility] Comment on above: Order Comment: Order Date: 01/17/25 Order Info: 0786-1 - CMP Order Info: 3016-3 - TSH Order Info: 3024-7 - T4F Result Comment: OLD ORDERS 07/2024 Performed By: #### L 506.0400, [id number], [id number] #### [facility] [address] [place], [address] MCH Normal 27.0-32.0 [facility] Comment on above: Order Comment: Order Date: 01/17/25 Order Info: 0786-1 - CMP Order Info: 3015-3 - TSH Order Info: 3024-7 - T4F Result Comment: OLD ORDERS 07/2024 Performed By: #### L 506.0400, [id number], [id number] #### [facility] [address] [place], [address] MCHC Normal 32-36 [facility] Comment on above: Order Comment: Order Date: 01/17/25 Order Info: 0786-1 - CMP Order Info: 3015-3 - TSH Order Info: 302-7 - T4F Result Comment: OLD ORDERS 07/2024 Performed By: #### L 506.0400, [id number], [id number] #### [facility] [address] [place], [address] MCV Normal 81-99 [facility] Comment on above: Order Comment: Order Date: 01/17/25 Order Info: 0786-1 - CMP Order Info: 301-3 - TSH Order Info: 3024-7 - T4F Result Comment: OLD ORDERS 07/2024 Performed By: #### L 506.0400, [id number], L500.4050 #### [facility] [address] [place], [address] NEUT% Normal 47-70 [facility] Comment on above: Order Comment: Order Date: 01/17/25 Order Info: 0786-1 - CMP Order Info: 3016-3 - TSH Order Info: 3024-7 - T4F Result Comment: OLD ORDERS 07/2024 Performed By: #### L 506.0400, [id number], L500.4050 #### [facility] [address] [place], [address] PLT Normal 150-450 [facility] Comment on above: Order Comment: Order Date: 01/17/25 Order Info: 0786-1 - CMP Order Info: 3 - TSH Order Info: 302-7 - T4F Result Comment: OLD ORDERS 07/2024 Performed By: #### L 506.0400, [id number], [id number] #### [facility] [address] [place], [address] RBC Normal 4.2-5.4 [facility] Comment on above: Order Comment: Order Date: 01/17/25 Order Info: 0786-1 - CMP Order Info: 3 - TSH Order Info: 7 - T4F Result Comment: OLD ORDERS 07/2024 Performed By: #### L 506.0400, [id number], [id number] #### [facility] [address] [place], [address] RDW CV Normal 11.6-14.6 [facility] Comment on above: Order Comment: Order Date: 01/17/25 Order Info: 0786-1 - CMP Order Info: 3 - TSH Order Info: 7 - T4F Result Comment: OLD ORDERS 07/2024 Performed By: #### L 506.0400, [id number], [id number] #### [facility] [address] [place], [address] RDW SD Normal 35.1-43.9 [facility] Comment on above: Order Comment: Order Date: 01/17/25 Order Info: 0786-1 - CMP Order Info: 3015-3 - TSH Order Info: 302-7 - T4F Result Comment: OLD ORDERS 07/2024 Performed By: #### L 506.0400, [id number], [id number] #### [facility] [address] [place], [address] WBC Normal 4.4-11.0 [facility] Comment on above: Order Comment: Order Date: 01/17/25 Order Info: 0786-1 - CMP Order Info: 3016-3 - TSH Order Info: 3024-7 - T4F Result Comment: OLD ORDERS 07/2024 Performed By: #### L 506.0400, [id number], L500.4050 #### [facility] [address] [place], [address] Carbon dioxide, total [Moles /volume] in Central venous bloodOrdered By: Sarah Antony on 01-28-2025 CO2 [Moles/Vol] 23.8 mmol/L 21.0-32.0 [facility] Chloride assayOrdered By: Luly Antony on 01-28-2025 Chloride [Moles/Vol] 105 mmol/L 98-108 [facility] Comprehensive Metabolic Prof ilon 01-28-2025 Albumin [Mass/Vol] 4.1 g/dL Normal 3.5-5.0 [facility] Comment on above: Order Comment: Order Date: 01/17/25 Order Info: 0786-1 - CMP Order Info: 3016-3 - TSH Order Info: 3024-7 - T4F Performed By: #### L 506.0400, [id number], L500.4050 #### [facility] [address] [place], [address] Albumin/Globulin [Mass ratio] 1.5 {ratio} Normal 0.9-2.4 [facility] Comment on above: Order Comment: Order Date: 01/17/25 Order Info: 0786-1 - CMP Order Info: 3016-3 - TSH Order Info: 3024-7 - T4F Performed By: #### L 506.0400, [id number], L500.4050 #### [facility] [address] [place], [address] ALK PHOS 85 U/L Normal 35-104 [facility] Comment on above: Order Comment: Order Date: 01/17/25 Order Info: 0786-1 - CMP Order Info: 3016-3 - TSH Order Info: 3024-7 - T4F Performed By: #### L 506.0400, [id number], L500.4050 #### [facility] [address] [place], [address] ALT [Catalytic activity/Vol] 20 U/L Normal <=34 [facility] Comment on above: Order Comment: Order Date: 01/17/25 Order Info: 0786-1 - CMP Order Info: 3016-3 - TSH Order Info: 3024-7 - T4F Performed By: #### L 506.0400, [id number], L500.4050 #### [facility] [address] [place], [address] AST [Catalytic activity/Vol] 24 U/L Normal <=31 [facility] Comment on above: Order Comment: Order Date: 01/17/25 Order Info: 0786-1 - CMP Order Info: 301-3 - TSH Order Info: 3024-7 - T4F Performed By: #### L 506.0400, [id number], L500.4050 #### [facility] [address] [place], [address] Bilirubin [Mass/Vol] 0.31 mg/dL Normal 0.00-1.30 [facility] Comment on above: Order Comment: Order Date: 01/17/25 Order Info: 0786-1 - CMP Order Info: 3016-3 - TSH Order Info: 3024-7 - T4F Performed By: #### L 506.0400, [id number], L500.4050 #### [facility] [address] [place], [address] BUN/CRE 21.5 RATIO High 10-20 [facility] Comment on above: Order Comment: Order Date: 01/17/25 Order Info: 0786-1 - CMP Order Info: 3016-3 - TSH Order Info: 3024-7 - T4F Performed By: #### L 506.0400, [id number], L500.4050 #### [facility] [address] [place], [address] Calcium [Mass/Vol] 8.9 mg/dL Normal 7.6-11.0 [facility] Comment on above: Order Comment: Order Date: 01/17/25 Order Info: 0786-1 - CMP Order Info: 3 - TSH Order Info: 302-7 - T4F Performed By: #### L 506.0400, [id number], L500.4050 #### [facility] [address] [place], [address] Chloride [Moles/Vol] 105 mmol/L Normal 98-108 [facility] Comment on above: Order Comment: Order Date: 01/17/25 Order Info: 07 - CMP Order Info: 3 - TSH Order Info: 3027 - T4F Performed By: #### L 506.0400, [id number], L500.4050 #### [facility] [address] [place], [address] CO2 [Moles/Vol] 23.8 mmol/L Normal 21.0-32.0 [facility] Comment on above: Order Comment: Order Date: 01/17/25 Order Info: 0786 - CMP Order Info: 3 - TSH Order Info: 302-7 - T4F Performed By: #### L 506.0400, [id number], L500.4050 #### [facility] [address] [place], [address] Creatinine [Mass/Vol] 0.61 mg/dL Low 0.70-1.20 [facility] Comment on above: Order Comment: Order Date: 01/17/25 Order Info: 0786-1 - CMP Order Info: 3016-3 - TSH Order Info: 3024-7 - T4F Performed By: #### L 506.0400, [id number], L500.4050 #### [facility] [address] [place], [address] GAP 10 Normal 5-15 [facility] Comment on above: Order Comment: Order Date: 01/17/25 Order Info: 0786-1 - CMP Order Info: 3016-3 - TSH Order Info: 3024-7 - T4F Performed By: #### L 506.0400, [id number], L500.4050 #### [facility] [address] [place], [address] GFR/1.73 sq M.predicted among non-blacks MDRD (S/P/Bld) [Vol rate/Area] 113 mL/min/{1.73_m2} Normal >60 [facility] Comment on above: Order Comment: Order Date: 01/17/25 Order Info: 07-1 - CMP Order Info: 6-3 - TSH Order Info: 3024-7 - T4F Result Comment: mL/m in/1.73m2 CKD-EPI Creatinine Equation (2020) Performed By: #### L 506.0400, L501.9520, L500.4050 #### [facility] [address] [place], [address] Globulin (S) [Mass/Vol] 2.7 g/dL Normal 2.2-4.2 [facility] Comment on above: Order Comment: Order Date: 01/17/25 Order Info: 0786-1 - CMP Order Info: 6-3 - TSH Order Info: 3024-7 - T4F Performed By: #### L 506.0400, [id number], L500.4050 #### [facility] [address] [place], [address] Glucose [Mass/Vol] 89 mg/dL Normal 70-99 [facility] Comment on above: Order Comment: Order Date: 01/17/25 Order Info: 0786-1 - CMP Order Info: 3016-3 - TSH Order Info: 3024-7 - T4F Performed By: #### L 506.0400, [id number], L500.4050 #### [facility] [address] [place], [address] Potassium [Moles/Vol] 4.0 mmol/L Normal 3.3-5.1 [facility] Comment on above: Order Comment: Order Date: 01/17/25 Order Info: 0786-1 - CMP Order Info: 3016-3 - TSH Order Info: 3024-7 - T4F Performed By: #### L 506.0400, [id number], L500.4050 #### [facility] [address] [place], [address] Sodium [Moles/Vol] 139 mmol/L Normal 133-145 [facility] Comment on above: Order Comment: Order Date: 01/17/25 Order Info: 0786-1 - CMP Order Info: 3015-3 - TSH Order Info: 3024-7 - T4F Performed By: #### L 506.0400, [id number], L500.4050 #### [facility] [address] [place], [address] T PROT 6.8 g/dL Normal 5.9-8.4 [facility] Comment on above: Order Comment: Order Date: 01/17/25 Order Info: 0786-1 - CMP Order Info: 3016-3 - TSH Order Info: 3024-7 - T4F Performed By: #### L 506.0400, [id number], L500.4050 #### [facility] [address] [place], [address] Urea nitrogen [Mass/Vol] 13 mg/dL Normal 4-19 [facility] Comment on above: Order Comment: Order Date: 01/17/25 Order Info: 0786-1 - CMP Order Info: 3016-3 - TSH Order Info: 3024-7 - T4F Performed By: #### L 506.0400, [id number], L500.4050 #### [facility] [address] [place], [address] ALB Normal 3.5-5.0 [facility] Comment on above: Order Comment: Order Date: 01/17/25 Order Info: 0786-1 - CMP Order Info: 3015-3 - TSH Order Info: 302-7 - T4F Result Comment: OLD ORDERS 07/2024 Performed By: #### L 506.0400, [id number], L500.4050 #### [facility] [address] [place], [address] ALK PHOS Normal 35-104 [facility] Comment on above: Order Comment: Order Date: 01/17/25 Order Info: 0786-1 - CMP Order Info: 3015-3 - TSH Order Info: 302-7 - T4F Result Comment: OLD ORDERS 07/2024 Performed By: #### L 506.0400, L501.9520, L500.4050 #### [facility] [address] [place], [address] ALT Normal <=34 [facility] Comment on above: Order Comment: Order Date: 01/17/25 Order Info: 0786-1 - CMP Order Info: 3015-3 - TSH Order Info: 302-7 - T4F Result Comment: OLD ORDERS 07/2024 Performed By: #### L 506.0400, L501.9520, L500.4050 #### [facility] [address] [place], [address] AST Normal <=31 [facility] Comment on above: Order Comment: Order Date: 01/17/25 Order Info: 0786-1 - CMP Order Info: 301-3 - TSH Order Info: 3024-7 - T4F Result Comment: OLD ORDERS 07/2024 Performed By: #### L 506.0400, L501.9520, L500.4050 #### [facility] [address] [place], [address] BUN Normal 4-19 [facility] Comment on above: Order Comment: Order Date: 01/17/25 Order Info: 0786-1 - CMP Order Info: 3016-3 - TSH Order Info: 3024-7 - T4F Result Comment: OLD ORDERS 07/2024 Performed By: #### L 506.0400, L501.9520, L500.4050 #### [facility] [address] [place], [address] BUN/CRE Normal 10-20 [facility] Comment on above: Order Comment: Order Date: 01/17/25 Order Info: 0786-1 - CMP Order Info: 3016-3 - TSH Order Info: 3024-7 - T4F Result Comment: OLD ORDERS 07/2024 Performed By: #### L 506.0400, L501.9520, L500.4050 #### [facility] [address] [place], [address] Calcium Normal 7.6-11.0 [facility] Comment on above: Order Comment: Order Date: 01/17/25 Order Info: 0786-1 - CMP Order Info: 3016-3 - TSH Order Info: 3024-7 - T4F Result Comment: OLD ORDERS 07/2024 Performed By: #### L 506.0400, L501.9520, L500.4050 #### [facility] [address] [place], [address] CL Normal 98-108 [facility] Comment on above: Order Comment: Order Date: 01/17/25 Order Info: 0786-1 - CMP Order Info: 3016-3 - TSH Order Info: 3024-7 - T4F Result Comment: OLD ORDERS 07/2024 Performed By: #### L 506.0400, L501.9520, L500.4050 #### [facility] [address] [place], [address] CO2 Normal 21.0-32.0 [facility] Comment on above: Order Comment: Order Date: 01/17/25 Order Info: 0786-1 - CMP Order Info: 3016-3 - TSH Order Info: 3024-7 - T4F Result Comment: OLD ORDERS 07/2024 Performed By: #### L 506.0400, L501.9520, L500.4050 #### [facility] [address] [place], [address] CREAT,SERUM Normal 0.70-1.20 [facility] Comment on above: Order Comment: Order Date: 01/17/25 Order Info: 0786-1 - CMP Order Info: 3015-3 - TSH Order Info: 302-7 - T4F Result Comment: OLD ORDERS 07/2024 Performed By: #### L 506.0400, L501.9520, L500.4050 #### [facility] [address] [place], [address] eGFR Normal >60 [facility] Comment on above: Order Comment: Order Date: 01/17/25 Order Info: 0786-1 - CMP Order Info: 3 - TSH Order Info: 302-7 - T4F Result Comment: OLD ORDERS 07/2024 Performed By: #### L 506.0400, L501.9520, L500.4050 #### [facility] [address] [place], [address] GAP Normal 5-15 [facility] Comment on above: Order Comment: Order Date: 01/17/25 Order Info: 0786-1 - CMP Order Info: 3 - TSH Order Info: 302-7 - T4F Result Comment: OLD ORDERS 07/2024 Performed By: #### L 506.0400, L501.9520, L500.4050 #### [facility] [address] [place], [address] GLU Normal 70-99 [facility] Comment on above: Order Comment: Order Date: 01/17/25 Order Info: 0786-1 - CMP Order Info: 3016-3 - TSH Order Info: 3024-7 - T4F Result Comment: OLD ORDERS 07/2024 Performed By: #### L 506.0400, L501.9520, L500.4050 #### [facility] [address] [place], [address] Potassium Normal 3.3-5.1 [facility] Comment on above: Order Comment: Order Date: 01/17/25 Order Info: 0786-1 - CMP Order Info: 3 - TSH Order Info: 302-7 - T4F Result Comment: OLD ORDERS 07/2024 Performed By: #### L 506.0400, [id number], L500.4050 #### [facility] [address] [place], [address] T BILI Normal 0.00-1.30 [facility] Comment on above: Order Comment: Order Date: 01/17/25 Order Info: 0786- - CMP Order Info: 3 - TSH Order Info: 3027 - T4F Result Comment: OLD ORDERS 07/2024 Performed By: #### L 506.0400, [id number], L500.4050 #### [facility] [address] [place], [address] T PROT Normal 5.9-8.4 [facility] Comment on above: Order Comment: Order Date: 01/17/25 Order Info: 0786-1 - CMP Order Info: 3 - TSH Order Info: 302-7 - T4F Result Comment: OLD ORDERS 07/2024 Performed By: #### L 506.0400, L501.9520, L500.4050 #### [facility] [address] [place], [address] Comprehensive Metabolic Profil Normal 133-145 [facility] Comment on above: Order Comment: Order Date: 01/17/25 Order Info: 0786-1 - CMP Order Info: 3 - TSH Order Info: 3024-7 - T4F Result Comment: OLD ORDERS 07/2024 Performed By: #### L 506.0400, L501.9520, L500.4050 #### [facility] [address] [place], [address] Glomerular filtration rate ( GFR) estimation/1.73 sq m using serum, plasma, or whole bOrdered By: Sarah Antony on 01-28-2025 GFR/1.73 sq M.predicted among non-blacks MDRD (S/P/Bld) [Vol rate/Area] 113 mL/min/{1.73_m2} >60 [facility] Comment on above: mL/min/1.73m2 CKD-EP I Creatinine Equation (2020) Laboratory - Chemistry and C hemistry - challengeOrdered By: Sarah Antony on 01-28-2025 AST [Catalytic activity/Vol] 24 U/L <32 [facility] Potassium measurement (mass/ volume)Ordered By: Sarah Antony on 01-28-2025 Potassium (Unsp spec) [Mass/Vol] 4.0 mmol/L 3.3-5.1 [facility] Serum creatinine measurement (mass/volume)Ordered By: Sarah Antony on 01-28-2025 Creatinine [Mass/Vol] 0.61 mg/dL Low 0.70-1.20 [facility] Serum globulin measurementOr dered By: Sarah Antony on 01-28-2025 Globulin (S) [Mass/Vol] 2.7 g/dL 2.2-4.2 [facility] Serum glucose measurement (m ass/volume)Ordered By: Sarah Antony on 01-28-2025 Glucose [Mass/Vol] 89 mg/dL 70-99 [facility] Serum or plasma alanine perez otransferase (ALT) measurementOrdered By: Sarah Antony on 01-28-2025 ALT [Catalytic activity/Vol] 20 U/L <35 [facility] Serum or plasma albumin zonia urement (mass/volume)Ordered By: Sarah Antony on 01-28-2025 Albumin [Mass/Vol] 4.1 g/dL 3.5-5.0 [facility] Serum or plasma albumin/glob ulin mass ratioOrdered By: Sarah Antony on 01-28-2025 Albumin/Globulin [Mass ratio] 1.5 {ratio} 0.9-2.4 [facility] Serum or plasma alkaline sera sphatase measurementOrdered By: Sarah Antony on 01-28-2025 ALP [Catalytic activity/Vol] 85 U/L 35-104 [facility] Serum or plasma calcium zonia urement (mass/volume)Ordered By: Sarah Antony on 01-28-2025 Calcium [Mass/Vol] 8.9 mg/dL 7.6-11.0 [facility] Serum or plasma urea nitroge n measurement (mass/volume)Ordered By: Sarah Antony on 01-28-2025 Urea nitrogen [Mass/Vol] 13 mg/dL 4-19 [facility] Sodium levelOrdered By: Sarah Antony on 01-28-2025 Sodium [Moles/Vol] 139 mmol/L 133-145 [facility] T4 Free Directon 01-28-2025 T4 FREE DIRECT 1.50 ng/dL High 0.76-1.46 [facility] Comment on above: Order Comment: Order Date: 01/17/25 Order Info: 0786-1 - CMP Order Info: 3016-3 - TSH Order Info: 3027 - T4F Performed By: #### L 506.0400, L501.9520, L500.4050 #### [facility] [address] [place], [address] T4 freeOrdered By: Sarah james on 01-28-2025 Free T4 [Mass/Vol] 1.50 ng/dL High 0.76-1.46 [facility] TSH DL <= 0.005 mIU/L QnOrde red By: Sarah Antony on 01-28-2025 TSH Qn 2.530 uIU/mL 0.300-4.200 [facility] Thyroid Stim Hormone (TSH)on 01-28-2025 TSH 2.530 uIU/mL Normal 0.300-4.200 [facility] Comment on above: Order Comment: Order Date: 01/17/25 Order Info: 0786-1 - CMP Order Info: 3016-3 - TSH Order Info: 3024-7 - T4F Performed By: #### L 506.0400, L501.9520, L500.4050 #### [facility] [address] [place], [address] Total proteinOrdered By: Jorden Antony on 01-28-2025 Protein [Mass/Vol] 6.8 g/dL 5.9-8.4 [facility] Surgery Visit Reporton 12-24 Surgery Visit Report [facility] [address] [place] [address] OFFICE VISIT Date of Service: 12/24/24 MR#: [id number] Acct: [id number] Name: IBAN RIDER Rep #: [id number] : 1980 Provider: Dr. Maria Elena sahni MD Age/Sex: 44/F Location: [facility] Status: Signed Intake Vital Signs 02/10/23 15:15 12/24/24 08:53 Height 5 ft 3 in 5 ft 3 in Weight: 115 lb BMI 20.3 BP 100/65 Blood Pressure Location Rt brachial Position Sitting Respiration 17 Pulse 66 Pulse Source Monitor Pulse Oximetry (%) 99 Oxygen Delivery Method room air Intake Visit Reasons: F/U BREAST U/S Chief Complaint: f/u breast u/s Is patient in pain?: No Allergies amoxicillin Allergy (Verified 12/24/24 08:54) Nausea/Vom/Diarrhea Medications ???Medication ???Instructions ???Recorded ???Confirmed ???Type betamethasone, augmented 0.05 % gm topical 02/10/23 12/24/24 Histo ry topical ointment cetirizine 5 mg tablet 5 mg PO DAILY PRN 02/10/23 5 History cholecalciferol (vitamin D3) 50 50 mcg PO DAILY 02/10/23 12/24/24 History mcg (2,000 unit) capsule levothyroxine 75 mcg tablet ea PO 02/10/23 12/24/24 History calcium carbonate 500 mg PO QDAY 12/24/24 12/24/24 H istory PFSH Surgical History (Updated 12/24/24 @ 08:53 by Berenice Aguilar) History of lumpectomy of left breast Social History (Updated 12/24/24 @ 08:53 by Berenice Aguilar) Smoking Status: Never smoker alcohol intake: never HPI HPI HPI: 44-year-old female presents due to left breast cyst. Patient states she does have a history of previous excision of lateral left breast cyst. Patient ultrasound showed a 9 mm x 9 mm x 7 mm cyst 4:00 3 cm from the nipple left breast. Patient states she does occasionally have discomfort in her lateral left breast but that would also go towards the end the nipple as far as discomfort. Patient also had some concern about actually nodes as she had a cousin recently diagnosed lymphoma does not notice any obvious lymphadenopathy in her axilla. Patient's age at menses 13, age of of first child N/A, family history of breast cancer maternal great aunt in her 70s, 1 previous breast biopsy/excisional biopsy ROS General General: No weight change, appetite, fatigue, colon cancer or breast cancer HEENT HEENT: No difficulty swallowing, eye injury, eye surgery, swollen glands or hoarseness Endo Endocrine: Yes thyroid disease; No diabetes mellitus, thyroid cancer, Hair loss, heat intolerance or cold intolerance Skin Skin: No rash or changing moles Breast Breast: Yes left breast lump and breast pain; No right breast lump, nipple discharge, abnormal mammogram, abnormal US or breast enlargement Musc Musculoskeletal: No back problems, arthritis, rheumatoid arthritis, gout or joint pain Cardio Cardiovascular: No murmur, pacemaker, heart disease, atrial fibrillation, high blood pressure, heart attack, heart stent, palpitations, shortness of breath with exertion or chest pain Psych Psychiatric: No depression, anxiety or hearing voices Resp Respiratory: No shortness of breath, No sleep apnea, No cough, No COPD, No asthma, No emphysema and No wheezing Gastro Gastrointestinal: No abdominal pain, No nausea or vomiting, No diarrhea, No constipation, No blood in stool, No acid reflux, No hemorrhoids, No ulcers, No gallbladder problem and No black,tarry stools Nathaniel Hematologic: No blood thinners, No blood disorders, No bleeding, No anemia and No blood clots Neuro Neurologic: No numbness and No tingling Exam Const General: cooperative, healthy appearing and no acute distress [facility] Head: normal to inspection Chest Other: Breast inspection: Symmetric bilaterally Right breast: Fibroglandular tissue, no masses on exam, no nipple discharge or pain, no change in overlying skin Left breast: Fibroglandular tissue, no masses on exam, no nipple discharge or pain, no change in overlying skin No axillary or supraclavicular adenopathy bilaterally Resp Effort Inspection: normal respiratory effort Cardio Rate: regular rate GI Inspection: non-distended Palpation: soft Skin General: no rashes or lesions noted Neuro General: patient oriented x3 Extrem General: no clubbing, cyanosis or edema Psych Affect: normal affect Assessment and Plan Assessment and Plan (1) Breast lump: Status: Acute Comment: Ultrasound showed left breast benign cyst, no masses seen (2) Breast pain, left: Status: Acute Plan Discussed with patient that likely her cyst would not be causing pain shooting to her nipple as typically the pain would only be at the location of the cyst. No suspicious lymphadenopathy bilate ral axillas and on bedside ultrasound. Would recommend her possibly tryi (more content not included)... Normal [facility] Breast Limited Unilateralon 12-17-2024 Breast Limited Unilateral [facility] Services [address] [place], [place] [address] Breast Limited Unilateral MR#: [id number] Acct: [id number] Name: IBAN RIDER Rep #: [id number] : 1980 F 44 From: Ibrahima javed MD PCP: Dr. Sarah Antony MD Status: REG CLI Study: Breast Limited Unilateral Date of Exam: Exam# [id number] Ordering Dr: Sidney Patel CONTRACT OFFICER CONTRACT OFFICER -C PROCEDURE: BREAST LIMITED UNILATERAL 12/17/2024 REASON FOR EXAM: BREAST PAIN TECHNIQUE: Targeted left breast ultrasound. COMPARISON: Comparison is made with prior mammogram dated May 28, 2024. FINDINGS: Left breast ultrasound was targeted to the lower outer quadrant of the left breast.. There is a 9 mm x 9 mm x 7 mm cyst at the 4 o'clock position of the breast at 3 cm from the nipple. US/Breast Limited Unilateral IMPRESSION: Impression: 9 mm x 9 mm x 7 mm cyst at the 4 o'clock position of the left breast at 3 cm from the nipple. Birads: BI-RADS 2: BENIGN. RECOMMEND ANNUAL MAMMOGRAPHIC SCREENING. Reading Location: [facility] CC: Sidney CID McMorrow; Dr. Sarah Antony MD Cytometry Technologist: Signed Normal [facility] 10-08-2024 CNPN Telephone (OBGWMA) ROLAIBAN CHUN ([id number]) 1980 F Date Time Provider Department 10/08/24 NITISH KEITHGWKY During your visit today, we recorded the following information about you: Nitish Keith MD 10/08/2024 9:13 AM Signed Please let her know her pathology report is benign Aliiro Conteh RN 10/08/2024 9:22 AM Signed Aware of results. Asking when she can get back to running? Please advise. Thank you, MARK Rodriguez Lynne Marie, MD 10/08/2024 11:54 AM Signed Normal activity whenever she wants Alirio Conteh RN 10/08/2024 12:24 PM Signed Aware of Dr Keith's response. Alirio Conteh RN Allergies As of Date: 10/08/2024 Noted Allergy Reaction AMOXICILLIN 01/28/2013 2 - Rash Date Reviewed: 10/04/2024 Reviewed by: Nicole Esparza RN - Fully Assessed Reason for Visit: Results [95] Prescriptions as of 10/08/2024 - levothyroxine (SYNTHROID) 88 mcg tablet Take 1 tablet by mouth every afternoon. - triamcinolone acetonide topical 0.5 % ointment - cetirizine (ZYRTEC) 5 mg tablet Take 5 mg by mouth once daily. - VITAFOL ULTRA 29 mg iron- 1 mg-200 mg cap Take 1 capsule by mouth once daily. - Cholecalciferol, Vitamin D3, 2,000 unit cap Take 1 capsule by mouth. - MULTIVITAMIN/IRON/FOLI C ACID (CENTRUM ULTRA WOMEN'S ORAL) Take by mouth once daily. - Cholecalciferol, Vitamin D3, 2,000 unit cap Take by mouth. - CALCIUM ORAL Take by mouth. Problem List As Of Date 10/08/2024 Noted Resolved Hypothyroid [E03.9] 01/28/2013 Hirsutism [L68.0] 01/28/2013 Acne [L70.9] 01/28/2013 Breast mass [N63.0] 02/20/2014 06/17/2014 Lump or mass in breast [N63.0] 05/20/2014 06/17/2014 Vitamin D deficiency [E55.9] 02/20/2015 Left breast mass [N63.20] 08/04/2015 DUB (dysfunctional uterine bleeding) [N93.8] 08/12/2024 Endometrial polyp [N84.0] 08/12/2024 Pre-op exam [Z01.818] 10/04/2024 Encounter Status:Closed by NITISH KEITH on 10/08/24 Normal [facility] [id number] 10-04-2024 [id number] HNO ID: [id number] Author: NICOLE ESPARZA RN Service: ? Author Type: Registered Nurse Type: [id number] Filed: 10/04/2024 14:21 Note Text: A specimen was obtained today during your procedure and sent to the lab for pathology testing. A small amount of bleeding is normal. If you develop heavy bleeding, passing clots, nausea/vomiting, or fever, please contact Dr Keith or go to the ER. She will contact you in the next 1-2 weeks to go over results of your biopsy. Normal [facility] ANES POSTPROC EVALon 025 ANES POSTPROC EVAL HNO ID: [id number] Author: AGUSTIN HOLLIDAY MD Service: Anesthesiology Author Type: Physician Type: Anesthesia Postprocedure Evaluation Filed: 10/04/2024 15:11 Note Text: POST ANESTHESIA EVALUATION NOTE : 1980 Procedure Summary Date: 10/04/24 Room / Location: [facility] / [facility] [place] Anesthesia Start: 1304 Anesthesia Stop: 1347 Procedure: HYSTEROSCOPY SURGICAL W/SAMPLING BIOPSY OF ENDOMETRIUM AND/OR POLYPECTOMY W/ OR W/O DANDC (TRUCLEAR) (Uterus) Diagnosis: Uterine polyp (Uterine polyp [N84.0]) Surgeons: Nitish Keith MD Responsible Provider: Agustin Holliday MD Anesthesia Type: general ASA Status: 2 Anesthesia Type: general Airway Type: LMA Last Vitals Vitals Value Taken Time BP 114/76 10/04/24 1446 Temp 36.6 ?C (97.9 ?F) 10/04/24 1345 HR SpO2 45 10/04/24 1452 Resp 16 10/04/24 1445 SpO2 100 % 10/04/24 1452 Vitals shown include unfiled device data. Post Anesthesia Patient Status Patient Evaluation: PACU. PACU/ICU Patient Condition: stable. Anticipated Disposition: phase 2 then home. Neurological Status: aware and responsive. Pulmonary Status: breathing comfortably on room air Airway Control: returned to baseline unsupported. Cardiovascular Status: stable. Pain Management: clinically adequate Postoperative Hydration: acceptable. Intraoperative Events: no significant anesthesia events Post Operative Nausea/Vomiting Status: no significant post operative nausea or vomiting Recommendation: continue current plan of care. Anesthesia Observations No Documentation SIGNATURE: Agustin Holliday MD PATIENT NAME: Iban Rider DATE: October 04, 2024 TIME: 3:11 PM CSN: [id number] [facility] ANES PRE-OPon 10-04-2024 ANES PRE-OP HNO ID: [id number] Author: AGUSTIN HOLLIDAY MD Service: Anesthesiology Author Type: Physician Type: Anesthesia Preprocedure Evaluation Filed: 10/04/2024 12:22 Note Text: ANESTHESIOLOGY DAY OF SURGERY NOTE : 1980 Procedure Information Date/Time: 10/04/24 1300 Procedure: HYSTEROSCOPY SURGICAL W/SAMPLING BIOPSY OF ENDOMETRIUM AND/OR POLYPECTOMY W/ OR W/O DANDC (TRUCLEAR) (Uterus) Location: [place] [address] / [facility] [place] Surgeons: Nitish Keith MD Estimated body mass index is 19.49 kg/m? as calculated from the following: Height as of this encounter: 160 cm (5' 3). Weight as of this encounter: 49.9 kg (110 lb). Most recent hematocrit and potassium results: Hematocrit 43.3 02/18/2014 Potassium 3.6 02/18/2014 Relevant Problems ENDO (+) Hypothyroid I - PHYSICAL EVALUATION AIRWAY Patient intubated: No. Tracheostomy tube not present Mallampati: II. TM distance: >3 FB. Neck ROM: full ROM without neurological symptoms. Mouth opening: adequate. Short neck: no. Thick neck: no DENTAL Dental findings: teeth intact. Additional exam findings: no II - ANESTHESIA PLAN ASA Score: 2 Anesthetic Plan: general Airway type: LMA The patient is not a current smoker. NPO Status: adequate Anesthetic plan additional comments: Hypothyroidism Uterine polyp. Beta Larissa Monitoring Plan Monitoring plan: standard ASA. Post Procedure Analgesic Plan Postoperative analgesic plan: multimodal analgesia and parenteral or oral opioids. Informed Consent Anesthetic risks, benefits, alternatives, personnel and consent discussed: yes. Patient / Responsible Green Party agrees to proceed: yes Patient / Surrogate agrees to blood products: blood products not planned Significant changes in the patient condition since the History and Physical, not otherwise documented in primary service progress note: no. Potential Anesthesia issues that may suggest increased risk of complications or contraindication to planned procedure: none. Vitals Value Taken Time BP 102/69 10/04/24 1133 Pulse 66 10/04/24 1133 Resp 16 10/04/24 1133 Temp 36.7 ?C (98.1 ?F) 10/04/24 1133 SpO2 100 % 10/04/24 1133 Facility-Administered Medications as of 10/04/2024 Medication Dose Route Frequency lidocaine 10 mg/mL (1 %) 1-2 mg injection (XYLOCAINE) 0.1-0.2 mL INTRADERMAL PRN Outpatient Medications as of 10/04/2024 Medication Sig levothyroxine (SYNTHROID) 88 mcg tablet Take 1 tablet by mouth every afternoon. cetirizine (ZYRTEC) 5 mg tablet Take 5 mg by mouth once daily. Cholecalciferol, Vitamin D3, 2,000 unit cap Take 1 capsule by mouth. triamcinolone acetonide topical 0.5 % ointment VITAFOL ULTRA 29 mg iron- 1 mg-200 mg cap Take 1 capsule by mouth once daily. (Patient not taking: Reported on 05/27/2024) naproxen (NAPROSYN) 375 mg tablet Take 375 mg by mouth as needed. (Patient not taking: Reported on 05/27/2024) cyclobenzaprine (FLEXERIL) 10 mg tablet Take 10 mg by mouth once daily. (Patient not taking: Reported on 02/28/2022) MULTIVITAMIN/IRON/FOLI C ACID (CENTRUM ULTRA WOMEN'S ORAL) Take by mouth once daily. VIT A/VIT C/VIT E/ZINC/COPPER (PRESERVISION AREDS ORAL) Take by mouth as needed. (Patient not taking: Reported on 05/27/2024) Cholecalciferol, Vitamin D3, 2,000 unit cap Take by mouth. (Patient not taking: Reported on 08/12/2024) CALCIUM ORAL Take by mouth. magnesium sulfate 100 mg cap Take by mouth. (Patient not taking: Reported on 05/27/2024) LORazepam (ATIVAN) 0.5 mg tab Take by mouth three times daily as needed. (Patient not taking: Reported on 05/27/2024) I have interviewed and examined the patient. I have reviewed the medical record and/or the pre-anesthesia evaluation, pertinent labs, and test results. This contains updated information obtained within 48 hours of Surgery/Procedure. SIGNATURE: Agustin Holliday MD PATIENT NAME: Iban Rider DATE: October 04, 2024 TIME: 12:22 PM CSN: [id number] Normal [facility] HCG Preg Ur Qlon 10-04-2024 HCG ( test) Ql (U) Negative Normal Negative [facility] Comment on above: Order Comment: Speci men Type: URINE SPECIMENOrdering Facility: [facility] Address: [address] [place] [address] Result Comment: This test is intended to aid in the early detection of . Very dilute urine samples, as indicated by a low specific gravity, may not contain wine sales representative levels of hCG. This test detects intact hCG only. This test does not reliably detect hCG degradation products, including free-beta subunit and beta-core fragment. Therefore, this test may show reduced reactivity in urine after 8 weeks gestation. A number of conditions other than , including trophoblastic disease and certain non-trophoblastic neoplasms cause elevated levels of hCG. As with any assay employing mouse antibodies, the possibility exists for interference by human anti-mouse antibodies (HAMA) in the specimen. The test provides a presumptive diagnosis for . Performed By: #### 2 106-3 ####[facility] [id number] [place] [address] [place] HISTORY PHYSICALon HISTORY PHYSICAL HNO ID: [id number] Author: PEDRO RAM APRN.LIBRARY TECHNOLOGY INSTRUCTOR Service: Anesthesiology Author Type: Nurse Practitioner Type: H&P Filed: 10/04/2024 12:08 Note Text: HISTORY AND PHYSICAL EXAMINATION Iban Rider 1980 SERVICE DATE: 10/04/2024 SERVICE TIME: 11:04 AM PRIMARY CARE PHYSICIAN: Sarah Antony MD, MD SURGEON: Surgeons and Role: * Nitish Keith MD - Primary ANESTHESIA: General DIAGNOSIS: Uterine polyp [N84.0] PROCEDURE: Procedure(s): HYSTEROSCOPY SURGICAL W/SAMPLING BIOPSY OF ENDOMETRIUM AND/OR POLYPECTOMY W/ OR W/O DANDC (TRUCLEAR) (N/A) Subjective CHIEF COMPLAINT: uterine polyp The reason for this visit is to perform a comprehensive review of the patient's past medical history, assess their current health status and obtain any additional testing required based on anesthesia guidelines. We will also identify any potential anesthesia problems or contraindications to the planned procedure. HPI: This is a 44 year old female who presents with uterine polyp presents for hysteroscopy, endometrial biopsy/polypectomy with Dr Keith. Pt states having intermittent dark vaginal drainage between menses, denies pelvic pain. Pelvic ultrasound done 07/18/2024 revealing a 2.5 cm nodular structure, no acute adnexal abnormalities. METS: Patient denies any chest pain or undue shortness of breath with the above physical activity. FUNCTIONAL STATUS: Independent PAST MEDICAL HISTORY Diagnosis Date Anxiety Breast mass 05/2015 right Elevated DHEA Hyperprolactinemia (HCC) Hypothyroidism Left breast mass 08/04/2015 Left breast mass 06/2016 cysts Vitamin D deficiency 02/2014 PAST SURGICAL HISTORY Procedure Laterality Date BREAST BIOPSY INCISIONAL LEFT 05/29/2014 PAST SURGICAL HISTORY OF 2001 dental surgery FAMILY HISTORY Problem Relation Age of Onset Thyroid Paternal Aunt Ischemic Heart Disease Father Hypertension Father Lipids Father Cancer Paternal Grandfather prostate Cancer Paternal Uncle skin Breast Cancer Maternal Grandmother Breast Cancer Sister Social History Tobacco Use Smoking status: Never Smokeless tobacco: Never Vaping Use Vaping status: Never Used Substance Use Topics Alcohol use: No Drug use: No Prior to Admission medications as of 10/04/24 1200 Medication Sig Last Dose Taking levothyroxine (SYNTHROID) 88 mcg tablet Take 1 tablet by mouth every afternoon. 10/04/2024 at 0600 Yes cetirizine (ZYRTEC) 5 mg tablet Take 5 mg by mouth once daily. Yes Cholecalciferol, Vitamin D3, 2,000 unit cap Take 1 capsule by mouth. 10/03/2024 Yes triamcinolone acetonide topical 0.5 % ointment VITAFOL ULTRA 29 mg iron- 1 mg-200 mg cap Take 1 capsule by mouth once daily. Patient not taking: Reported on 05/27/2024 naproxen (NAPROSYN) 375 mg tablet Take 375 mg by mouth as needed. Patient not taking: Reported on 05/27/2024 cyclobenzaprine (FLEXERIL) 10 mg tablet Take 10 mg by mouth once daily. Patient not taking: Reported on 02/28/2022 MULTIVITAMIN/IRON/FOLI C ACID (CENTRUM ULTRA WOMEN'S ORAL) Take by mouth once daily. 10/02/2024 VIT A/VIT C/VIT E/ZINC/COPPER (PRESERVISION AREDS ORAL) Take by mouth as needed. Patient not taking: Reported on 05/27/2024 Cholecalciferol, Vitamin D3, 2,000 unit cap Take by mouth. Patient not taking: Reported on 08/12/2024 CALCIUM ORAL Take by mouth. 10/02/2024 magnesium sulfate 100 mg cap Take by mouth. Patient not taking: Reported on 05/27/2024 LORazepam (ATIVAN) 0.5 mg tab Take by mouth three times daily as needed. Patient not taking: Reported on 05/27/2024 ALLERGIES Allergen Reactions Amoxicillin Rash COMPLETE REVIEW OF SYSTEMS: GENERAL: No weight loss, malaise or fevers RESPIRATORY: Negative for cough, hemoptysis, wheezing, COPD, dyspnea or shortness of breath Cardiac: Negative for chest pain, leg swelling, hypertension, CHF or palpitations GI: No nausea, vomiting, or diarrhea : No history of dysuria, frequency or incontinence MUSCULOSKELETAL: Negative for joint pain or swelling, back pain or muscle pain PSYCH: anxiety ENDOCRINE:Denies diabetes, +hypothyroidism NEURO: No Hx seizures, tremors or CVA Heme/Onc: No hx blood clots, clotting disorders, or cancer Objective PHYSICAL EXAM: 09/20/24 1444 10/04/24 1133 BP: 102/69 Pulse: 66 Resp: 16 Temp: 36.7 ?C (98.1 ?F) TempSrc: Temporal SpO2: 100% Weight: 51.3 kg (113 lb) 49.9 kg (110 lb) Height: 160 cm (5' 3) 160 cm (5' 3) Body mass index is 19.49 kg/m?. MENTAL STATUS: alert, oriented to person, place and time HEENT: Normocephalic/atraumat ic LUNGS: Lungs clear to auscultation, Good diaphragmatic excursion CARDIAC: Normal S1 and S2; no rubs, murmurs, or gallops ABDOMEN: Soft, nontender EXTREMITIES: Extremities normal, no deformities, edema, clubbing or skin discoloration. Good capillary refill. Diagnostic tests reviewed for today's visit: Lab Value Units Date High Low HB No results within keanu (more content not included)... Normal [facility] OPERATIVE NOon 10-04-2024 OPERATIVE NO HNO ID: [id number] Author: NITISH KEITH MD Service: Gynecology Author Type: Resident Type: Operative Report Filed: 10/04/2024 16:41 Note Text: Attestation signed by Nitish Keith MD at 10/04/2024 4:41 PM I was present for the critical and christie portions of the surgery and I was immediately available to provide assistance. Nitish Keith MD CLOTH FRAMER OPERATIVE/PROCEDURE REPORT LOG ID: [id number] Surgery/Procedure Date: 10/04/2024 Incision/Procedure Start Time: 1:21 PM Incision Close/Procedure End Time: 1:35 PM Surgeon(s)/Procedurali st(s) and Printing Supplies Sales Representative(s): Surgeons and Role: * Nitish Keith MD - Primary * María Rousseau DO - Resident - Assisting No Additional Staff Informed Consent: Informed Consent obtained and on the chart Procedure: Hysteroscopy with Polypectomy Pre-Op/Pre-Procedure Diagnosis: Endometrial polyp Post-Op/Post-Procedure Diagnosis: Same as pre-op diagnosis Antibiotic: None, not indicated Procedure Details: Patient was taken to the operating room where the sign-in and time out were completed. General anesthesia was induced and found to be adequate. She was placed in dorsal lithotomy position with her feet in Yellowfin stirrups with careful attention not to hyperflex or hyperextend the knees or hips. SCDs were placed and turned on for DVT prophylaxis. Examination under anesthesia was performed to ascertain the position of the uterus which noted to be anteverted. Patient was prepped and draped in the usual fashion. A right angle retractor was placed in the patient's vagina with clear visualization of the cervix. The anterior lip of the cervix was grasped with a single tooth tenaculum. Cervix was dilated to 8 mm with Hegar dilator. A 5 mm 0-degree hysteroscope was introduced under direct visualization, and the uterus was distended with normal saline. Fluid deficit was 340 cc. The hysteroscope was then used for initial survey revealing below findings. The uterine cavity was well visualized. The fallopian tube ostia were visualized bilaterally. Findings: Endometrium: Normal endometrium Endometrial cavity: Normal with presence of polyps; normal ostia visualized bilaterally Polyps: singular large polyp, 4 x 2 cm, in the uterine cavity Fibroids: No fibroids Other: None Additional techniques Include: TRUCLEAR MORCELLATOR: The Truclear morcellator was then placed into the uterine cavity and under direct visualization, the polyp was morcellated and sent to Pathology. The cavity was noted to be empty and good hemostasis was noted. All instruments were removed from vagina and uterine cavity. Sign-out was completed. Distention Media: normal saline IV Fluids: per anesthesia Urine Output: 100 mL Estimated Blood Loss: 20 mL Specimens: ID Type Source Tests Collected by Time Destination A : WITH POLYP Tissue Endometrium, Curettings SURGICAL PATHOLOGY Nitish Keith MD 10/04/2024 1:33 PM Implantable Devices: NONE Drains: None Complications: None A digital sweep of the vaginal canal was performed by María Rousseau DO and it was ascertained that no instruments or other foreign bodies are retained within the cavity. Sponge, lap, and needle counts were correct times two and the patient was taken to the recovery room with stable vital signs after tolerating the procedure well. The attending was present for critical and christie portions of the procedure or immediately available to provide assistance. SIGNATURE: María Rousseau DO PATIENT NAME: Iban Rider DATE: October 04, 2024 TIME: 1:49 PM PAGER/CONTACT #: Normal [facility] SURGICAL PATHOLOGYon 025 CASE REPORT Normal [facility] Comment on above: Order Comment: Speci men Type: TISSUE SPECIMENOrdering Facility: [facility] Address: [address] [place] [address] Result Comment: [facility] Pathology Report Case: [id number] Authorizing Provider: Nitish Keith MD Collected: 10/04/2024 01:33 PM Ordering Location: [facility] Received: 10/04/2024 02:40 PM Pathologist: Sylvia Flores MD Specimen: Endometrium, Curettings, WITH POLYP Performed By: #### S ####[facility] LAB[facility]ATORYCL[facility] [id number] [address] CLINICAL HISTORY Normal [facility] Comment on above: Order Comment: Speci men Type: TISSUE SPECIMENOrdering Facility: [facility] Address: [address] [place] [address] Result Comment: Pre- op diagnosis: Uterine polyp [N84.0] Performed By: #### S ####[facility]ATORYCLIA [id number] [address] FINAL DIAGNOSIS Normal [facility] Comment on above: Order Comment: Speci men Type: TISSUE SPECIMENOrdering Facility: [facility] Address: [address] [place] [address] Result Comment: A. E ndometrium and polyp, polypectomy and curettage: -- Fragments of benign endometrial polyp and proliferative phase endometrium. Performed By: #### S ####[facility]ATORYCLIA [id number] [address] FINAL PERFORMING LAB Normal [facility] Comment on above: Order Comment: Speci men Type: TISSUE SPECIMENOrdering Facility: [facility] Address: [address] [place] [address] Result Comment: Diag nostic interpretation performed at: [facility], [address] [place] [address] CLIA# [id number] Multiple Pressure Riveter Operator: Thelma Kim MD Performed By: #### S ####[facility]ATORYCLIA [id number] [address] GROSS DESCRIPTION Normal [facility] Comment on above: Order Comment: Speci men Type: TISSUE SPECIMENOrdering Facility: [facility] Address: [address] [place] [address] Result Comment: A. E ndometrium, Curettings Received in a laparoscopic bag labeled endometrial curettings with polyp are multiple clifford, soft segments of tissue aggregating to 2.5 x 1.2 x 0.5 cm and weighing 1 g. Totally submitted in one cassette. Gross examination performed at [facility], [address] [place] [address] October 07, 2024 3:05 PM Performed By: #### S ####[facility]ORATORYCLIA [id number] [address] Ally 08-13-2024 CNPN Telephone (OBGWMA) IBAN RIDER ([id number]) 1980 F Date Time Provider Department 08/13/24 NITISH KEITH OBGWMA During your visit today, we recorded the following information about you: Maxim Dominguez 08/13/2024 11:40 AM Addendum Date: 08/13/24 Location: [facility] [place] Surgeon: Nuno Surgery: MORENA hysteroscopy polypectomy Surgery Date: 10/04/24 @ 2:00, pre-testing day of Consents signed: yes Surgery info: MyChart Clearance: not needed Allergies As of Date: 08/13/2024 Noted Allergy Reaction AMOXICILLIN 01/28/2013 2 - Rash Date Reviewed: 08/12/2024 Reviewed by: Nitish Keith MD - Fully Assessed Reason for Visit: Preparations For Surgery [898] Cmt: Production Operations Engineer surgery Primary Visit Diagnosis:Uterine polyp [N84.0] Order(s):SURGICAL REQUEST - ELECTIVE (04/2020) [[id number]] Order #: [id number]: 1 Prescriptions as of 08/13/2024 - levothyroxine (SYNTHROID) 88 mcg tablet Take 1 tablet by mouth every afternoon. - triamcinolone acetonide topical 0.5 % ointment - cetirizine (ZYRTEC) 5 mg tablet Take 5 mg by mouth once daily. - VITAFOL ULTRA 29 mg iron- 1 mg-200 mg cap Take 1 capsule by mouth once daily. - Cholecalciferol, Vitamin D3, 2,000 unit cap Take 1 capsule by mouth. - naproxen (NAPROSYN) 375 mg tablet Take 375 mg by mouth as needed. - cyclobenzaprine (FLEXERIL) 10 mg tablet Take 10 mg by mouth once daily. - MULTIVITAMIN/IRON/FOLI C ACID (CENTRUM ULTRA WOMEN'S ORAL) Take by mouth once daily. - VIT A/VIT C/VIT E/ZINC/COPPER (PRESERVISION AREDS ORAL) Take by mouth as needed. - Cholecalciferol, Vitamin D3, 2,000 unit cap Take by mouth. - CALCIUM ORAL Take by mouth. - magnesium sulfate 100 mg cap Take by mouth. - LORazepam (ATIVAN) 0.5 mg tab Take by mouth three times daily as needed. - levothyroxine (SYNTHROID) 75 mcg tablet Take 75 mcg by mouth once daily. Problem List As Of Date 08/13/2024 Noted Resolved Hypothyroid [E03.9] 01/28/2013 Hirsutism [L68.0] 01/28/2013 Acne [L70.9] 01/28/2013 Breast mass [N63.0] 02/20/2014 06/17/2014 Lump or mass in breast [N63.0] 05/20/2014 06/17/2014 Vitamin D deficiency [E55.9] 02/20/2015 Left breast mass [N63.20] 08/04/2015 DUB (dysfunctional uterine bleeding) [N93.8] 08/12/2024 Endometrial polyp [N84.0] 08/12/2024 Encounter Status:Closed by MAXIM [facility] ) ADRYIBAN ([id number]) 1980 F Date Time Provider Department 08/12/24 4:15 PM NITISH KEITH During your visit today, we recorded the following information about you: Blood pressure Weight Height Last Period 94/55 51.3 kg 1.6 m 08/02/24 Nitish Keith MD 08/12/2024 5:13 PM Signed Iban Adry is a 44 year old, 0 Para 0 who presents complaining of menorrhagia occurring monthly , metrorrhagia occurring midcycle lasting for 5 days.. Cycles are regular occurring every 28 days lasting for 7 days. Symptoms have been present for the past 2 years with continuous symptoms. Previous treatments include: None. Associated symptoms include dysmenhorrea. HISTORY PAST MEDICAL HISTORY Diagnosis Date Anxiety Breast mass 05/2015 right Elevated DHEA Hyperprolactinemia (HCC) Hypothyroidism Left breast mass 08/04/2015 Left breast mass 06/2016 cysts Vitamin D deficiency 02/2014 PAST SURGICAL HISTORY Procedure Laterality Date BREAST BIOPSY INCISIONAL LEFT 05/29/2014 PAST SURGICAL HISTORY OF 2002 dental surgery Current Outpatient Medications Medication Sig levothyroxine (SYNTHROID) 88 mcg tablet Take 1 tablet by mouth every afternoon. triamcinolone acetonide topical 0.5 % ointment cetirizine (ZYRTEC) 5 mg tablet Take 5 mg by mouth once daily. Cholecalciferol, Vitamin D3, 2,000 unit cap Take 1 capsule by mouth. MULTIVITAMIN/IRON/FOLI C ACID (CENTRUM ULTRA WOMEN'S ORAL) Take by mouth once daily. CALCIUM ORAL Take by mouth. VITAFOL ULTRA 29 mg iron- 1 mg-200 mg cap Take 1 capsule by mouth once daily. (Patient not taking: Reported on 05/27/2024) naproxen (NAPROSYN) 375 mg tablet Take 375 mg by mouth as needed. (Patient not taking: Reported on 05/27/2024) cyclobenzaprine (FLEXERIL) 10 mg tablet Take 10 mg by mouth once daily. (Patient not taking: Reported on 02/28/2022) VIT A/VIT C/VIT E/ZINC/COPPER (PRESERVISION AREDS ORAL) Take by mouth as needed. (Patient not taking: Reported on 05/27/2024) Cholecalciferol, Vitamin D3, 2,000 unit cap Take by mouth. (Patient not taking: Reported on 08/12/2024) magnesium sulfate 100 mg cap Take by mouth. (Patient not taking: Reported on 05/27/2024) LORazepam (ATIVAN) 0.5 mg tab Take by mouth three times daily as needed. (Patient not taking: Reported on 05/27/2024) levothyroxine (SYNTHROID) 75 mcg tablet Take 75 mcg by mouth once daily. (Patient not taking: Reported on 07/29/2024) No current facility-administered medications for this visit. ALLERGIES Allergen Reactions Amoxicillin Rash Social History Tobacco Use Smoking status: Never Smokeless tobacco: Never Vaping Use Vaping status: Never Used Substance Use Topics Alcohol use: No Drug use: No FAMILY HISTORY Problem Relation Age of Onset Thyroid Paternal Aunt Ischemic Heart Disease Father Hypertension Father Lipids Father Cancer Paternal Grandfather prostate Cancer Paternal Uncle skin Breast Cancer Maternal Grandmother Breast Cancer Sister Past Production Operations Engineer History: Ultrasound, endometrial polyp PHYSICAL EXAM BP 94/55 Ht 160 cm (5' 3) Wt 51.3 kg (113 lb) LMP 08/02/2024 (Approximate) BMI 20.02 kg/m? General: Well developed, well nourished female in no distress. Skin: normal color Abdomen Exam: Normal abdominal exam, Abdomen soft, non-tender. Bowel sounds normal. No masses, organomegaly ULTRASOUND: Uterus: -Size: 7.3 x 4.4 x 4.4 cm -Orientation: Retroverted -Endometrial echo complex: Evaluation of the endometrium was adequate. No endometrial abnormality. The endometrial echo complex measured 0.9, a 2.5 cm nodular component suggested on the last image with vessel for which polypoid structure cannot be excluded. -Cervix: Unremarkable. -Adenomyosis assessment: There are no sonographic findings of adenomyosis. -Fibroids: There are no fibroids. Right Ovary: 4.5 x 3.2 x 2.1 cm - Normal sonographic appearance with physiologic follicles. Doppler imaging showed normal arterial and venous flow throughout the ovary. Left Ovary: 3.7 x 2.0 x 1.4 cm - Normal sonographic appearance with physiologic follicles. Doppler imaging showed normal arterial and venous flow throughout the ovary. Free Fluid: Small free fluid is likely physiologic. Extremities: Normal range of motion and no edema. ASSESSMENT/PLAN: 1. DUB (dysfunctional uterine bleeding) - ICD9: 626.8, ICD10: N93.8 (primary diagnosis) 2. Endometrial polyp - ICD9: 621.0, ICD10: N84.0 - She was consented for a DANDC, Hysteroscopy, Polypectomy Nitish Keith MD Referring Provider: THELMA ARCHER [[id number]] Allergies As of Date: 08/12/2024 Noted Allergy Reaction AMOXICILLIN 01/28/2013 2 - Rash Date Reviewed: 08/12/2024 Reviewed by: Nitish Keith MD - Fully Assessed Reason for Visit: Consult [173] Cmt: Consult DANDC Primary Visit Diagnosis (more content not included)... Normal [facility] CNOVon 07-29-2024 CNOV Office Visit ([place]) IBAN RIDER ([id number]) 1980 F Date Time Provider Department 07/29/24 8:00 AM RENNY FAIRCHILD During your visit today, we recorded the following information about you: Pulse Respiration Blood pressure Weight 62/minute 16/minute 96/60 52.1 kg Height Last Period 1.6 m 07/07/24 Renny Fairchild MD 07/29/2024 8:47 AM Signed Iban Rider is a 44 year old female who presents for annual exam. Still has some irregular bleeding. Sonogram shows possible endometrial polyp. This is explained to the patient. She is referred to Dr. Nitish Keith for possible hysteroscopy, [facility]. Recent mammogram normal. ALLERGIES Allergen Reactions Amoxicillin Rash Current Outpatient Medications Medication Sig levothyroxine (SYNTHROID) 88 mcg tablet Take 1 tablet by mouth every afternoon. triamcinolone acetonide topical 0.5 % ointment MULTIVITAMIN/IRON/FOLI C ACID (CENTRUM ULTRA WOMEN'S ORAL) Take by mouth once daily. CALCIUM ORAL Take by mouth. cetirizine (ZYRTEC) 5 mg tablet Take 5 mg by mouth once daily. VITAFOL ULTRA 29 mg iron- 1 mg-200 mg cap Take 1 capsule by mouth once daily. (Patient not taking: Reported on 05/27/2024) Cholecalciferol, Vitamin D3, 2,000 unit cap Take 1 capsule by mouth. (Patient not taking: Reported on 05/27/2024) naproxen (NAPROSYN) 375 mg tablet Take 375 mg by mouth as needed. (Patient not taking: Reported on 05/27/2024) cyclobenzaprine (FLEXERIL) 10 mg tablet Take 10 mg by mouth once daily. (Patient not taking: Reported on 02/28/2022) VIT A/VIT C/VIT E/ZINC/COPPER (PRESERVISION AREDS ORAL) Take by mouth as needed. (Patient not taking: Reported on 05/27/2024) Cholecalciferol, Vitamin D3, 2,000 unit cap Take by mouth. magnesium sulfate 100 mg cap Take by mouth. (Patient not taking: Reported on 05/27/2024) LORazepam (ATIVAN) 0.5 mg tab Take by mouth three times daily as needed. (Patient not taking: Reported on 05/27/2024) levothyroxine (SYNTHROID) 75 mcg tablet Take 75 mcg by mouth once daily. (Patient not taking: Reported on 07/29/2024) No current facility-administered medications for this visit. Subjective OB History T0 L0 SAB0 IAB0 Ectopic0 Multiple0 Live Births0 Past Gynecological History: see [facility] PAST MEDICAL HISTORY Diagnosis Date Anxiety Breast [...] Never Smokeless tobacco: Never Vaping Use Vaping status: Never Used Substance Use Topics Alcohol use: No Drug use: No FAMILY HISTORY Problem Relation Age of Onset Thyroid Paternal Aunt Ischemic Heart Disease Father Hypertension Father Lipids Father Cancer Paternal Grandfather prostate Cancer Paternal Uncle skin Breast Cancer Maternal Grandmother Breast Cancer Sister Review of Symptoms negative Objective BP 96/60 Pulse 62 Resp 16 Ht 5' 3 (1.60m) Wt 114 lb 12.8 oz (52.1kg) SpO2 98% LMP 07/07/2024 BMI 20.34 kg/(m2). Physical Exam - restricted to breast and pelvic exam BREAST: without masses CLOTH FRAMER: Vulva - normal, Vagina - normal - cervix nulliparous, Pap done, Uterus - midplane, adnexa neg ASSESSMENT/PLAN: 1. Encounter for annual routine gynecological examination - ICD9: V72.31, ICD10: Z01.419 (primary diagnosis) - Completed pelvic and breast exam - Encouraged monthly BSE - Follow up for annual exam in one year. 2. Abnormal uterine bleeding due to endometrial polyp - ICD9: 626.6, 621.0, ICD10: N93.9, N84.0 -- Refer to Dr. Keith 3. Encounter for Papanicolaou smear for cervical cancer screening - ICD9: V76.2, ICD10: Z12.4 - Completed pelvic and breast exam - Encouraged monthly BSE - Follow up for annual exam in one year. Renny Fairchild MD Referring Provider: RENNY FAIRCHILD [[id number]] Allergies As of Date: 07/29/2024 Noted Allergy Reaction AMOXICILLIN 01/28/2013 2 - Rash Date Reviewed: 07/29/2024 Reviewed by: Heaven Guevara LPN - Fully Assessed Reason for Visit: Yearly Exam [187] Primary Visit Diagnosis:Encounter for annual routine gynecological examination [Z01.419] Other Visit Diagnoses:Abnormal uterine bleeding due to endometrial polyp [N93.9, N84.0] Encounter for Papanicolaou smear for cervical cancer screening [Z12.4] Order(s):PAP TEST [NTC9569] Order #: [id number] Prescriptions as of 07/29/2024 - levothyroxine (SYNTHROID) 88 mcg tablet Take 1 tablet by mouth every afternoon. - triamcinolone acetonide topical 0.5 % ointment - cetirizine (ZYRTEC) (more content not included)... Normal [facility] HISTORY PHYSICALon HISTORY PHYSICAL HNO ID: [id number] Author: RENNY FAIRCHILD MD Service: ? Author Type: Physician Type: H&P Filed: 07/29/2024 08:47 Note Text: Iban Rider is a 44 year old female who presents for annual exam. Still has some irregular bleeding. Sonogram shows possible endometrial polyp. This is explained to the patient. She is referred to Dr. Nitish Keith for possible hysteroscopy, [facility]. Recent mammogram normal. ALLERGIES Allergen Reactions Amoxicillin Rash Current Outpatient Medications Medication Sig levothyroxine (SYNTHROID) 88 mcg tablet Take 1 tablet by mouth every afternoon. triamcinolone acetonide topical 0.5 % ointment MULTIVITAMIN/IRON/FOLI C ACID (CENTRUM ULTRA WOMEN'S ORAL) Take by mouth once daily. CALCIUM ORAL Take by mouth. cetirizine (ZYRTEC) 5 mg tablet Take 5 mg by mouth once daily. VITAFOL ULTRA 29 mg iron- 1 mg-200 mg cap Take 1 capsule by mouth once daily. (Patient not taking: Reported on 05/27/2024) Cholecalciferol, Vitamin D3, 2,000 unit cap Take 1 capsule by mouth. (Patient not taking: Reported on 05/27/2024) naproxen (NAPROSYN) 375 mg tablet Take 375 mg by mouth as needed. (Patient not taking: Reported on 05/27/2024) cyclobenzaprine (FLEXERIL) 10 mg tablet Take 10 mg by mouth once daily. (Patient not taking: Reported on 02/28/2022) VIT A/VIT C/VIT E/ZINC/COPPER (PRESERVISION AREDS ORAL) Take by mouth as needed. (Patient not taking: Reported on 05/27/2024) Cholecalciferol, Vitamin D3, 2,000 unit cap Take by mouth. magnesium sulfate 100 mg cap Take by mouth. (Patient not taking: Reported on 05/27/2024) LORazepam (ATIVAN) 0.5 mg tab Take by mouth three times daily as needed. (Patient not taking: Reported on 05/27/2024) levothyroxine (SYNTHROID) 75 mcg tablet Take 75 mcg by mouth once daily. (Patient not taking: Reported on 07/29/2024) No current facility-administered medications for this visit. Subjective OB History T0 L0 SAB0 IAB0 Ectopic0 Multiple0 Live Births0 Past Gynecological History: see [facility] PAST MEDICAL HISTORY Diagnosis Date Anxiety Breast [...] Never Smokeless tobacco: Never Vaping Use Vaping status: Never Used Substance Use Topics Alcohol use: No Drug use: No FAMILY HISTORY Problem Relation Age of Onset Thyroid Paternal Aunt Ischemic Heart Disease Father Hypertension Father Lipids Father Cancer Paternal Grandfather prostate Cancer Paternal Uncle skin Breast Cancer Maternal Grandmother Breast Cancer Sister Review of Symptoms negative Objective BP 96/60 Pulse 62 Resp 16 Ht 5' 3 (1.60m) Wt 114 lb 12.8 oz (52.1kg) SpO2 98% LMP 07/07/2024 BMI 20.34 kg/(m2). Physical Exam - restricted to breast and pelvic exam BREAST: without masses CLOTH FRAMER: Vulva - normal, Vagina - normal - cervix nulliparous, Pap done, Uterus - midplane, adnexa neg ASSESSMENT/PLAN: 1. Encounter for annual routine gynecological examination - ICD9: V72.31, ICD10: Z01.419 (primary diagnosis) - Completed pelvic and breast exam - Encouraged monthly BSE - Follow up for annual exam in one year. 2. Abnormal uterine bleeding due to endometrial polyp - ICD9: 626.6, 621.0, ICD10: N93.9, N84.0 -- Refer to Dr. Keith 3. Encounter for Papanicolaou smear for cervical cancer screening - ICD9: V76.2, ICD10: Z12.4 - Completed pelvic and breast exam - Encouraged monthly BSE - Follow up for annual exam in one year. Renny Fairchild MD [facility] PAP TESTon 07-29-2024 ADEQUACY Normal [facility] Comment on above: Order Comment: Speci men Type: FLUID SPECIMENOrdering Facility: [facility] Address: [address] [place] [address] Result Comment: Sati sfactory for interpretation. No endocervical component Performed By: #### L [id number] ####[facility] LABORATORYCLIA [id number] [address] [place] CASE REPORT Normal [facility] Comment on above: Order Comment: Speci men Type: FLUID SPECIMENOrdering Facility: [facility] Address: [address] [place] [address] Result Comment: Gyne cologic Cytology Report Case: [id number] Authorizing Provider: Renny Fairchild MD Collected: 07/29/2024 08:51 AM Ordering Location: [facility] Obstetrics & Received: 07/29/2024 12:20 PM Gynecology First Screen: Feciuch, Mila, CT, ASCP Specimen: Pap Test, ThinPrep, Cervix Performed By: #### L [id number] ####[facility] LABORATORYCLIA [id number] [address] [place] CLINICAL HISTORY, CYTOLOGY, CLOTH FRAMER Routine Exam Normal [facility] Comment on above: Order Comment: Speci men Type: FLUID SPECIMENOrdering Facility: [facility] Address: [address] [place] [address] Performed By: #### L [id number] ####[facility] LABORATORYCLIA [id number] [address] [place] FINAL PERFORMING LAB Normal [facility] Comment on above: Order Comment: Speci men Type: FLUID SPECIMENOrdering Facility: [facility] Address: [address] [place] [address] Result Comment: Tech nical component, civil celebrant screening performed at [facility], [address] [place] [address] CLIA# [id number] Diagnostic interpretation performed at [facility], [address] [place] [address] CLIA# [id number] Multiple Pressure Riveter Operator: Thelma Kim M.D. Performed By: #### L [id number] ####[facility] LABORATORYCLIA [id number] [address] INTERPRETATION, CYTOLOGY, CLOTH FRAMER Normal [facility] Comment on above: Order Comment: Speci men Type: FLUID SPECIMENOrdering Facility: [facility] Address: [address] [place] [address] Result Comment: Nega tive for intraepithelial lesion or malignancy. Performed By: #### L [id number] ####[facility] LABORATORYCLIA [id number] [place] [id number] [place] LMP 07/07/2024 [facility] Comment on above: Order Comment: Speci men Type: FLUID SPECIMENOrdering Facility: [facility] Address: [address] [place] [address] Performed By: #### L [id number] ####[facility] LABORATORYCLIA [id number] [address] PAP DISCLAIMER COMMENT The Pap Smear is a screening test for cervical cancer. False negative results occur with all screening tests, emphasizing the need for rescreening at recommended intervals, and clinical correlation. [facility] Comment on above: Order Comment: Speci men Type: FLUID SPECIMENOrdering Facility: [facility] Address: [address] [place], [place] [address] [address] Performed By: #### L [id number] ####[facility] LABORATORYCLIA [id number] [place] [address] [place] [facility] PAP BLOCKLAYER COMMENT This specimen has be en analyzed by the ThinPrep Imaging System, an automated imaging and review system, which assists the laboratory in evaluating cells on ThinPrep Pap tests. Following automated imaging, selected tamayo from every slide are reviewed by a civil celebrant. Normal [facility] Comment on above: Order Comment: Speci men Type: FLUID SPECIMENOrdering Facility: [facility] Address: [address] [place] [address] Performed By: #### L [id number] ####[facility] LABORATORYCLIA [id number] [place] [address] [facility] [place] CBC W/Diff, Automatedon 11-0 4-2023 Absolute Lymph 2.05 X10 3/uL Normal 0.83-4.51 [facility] Comment on above: Performed By: #### L [id number], L100.0100, L506.0400, L500.4100 #### [facility] [address] [place], [address] Absolute Neut 4.2 X10 3/uL Normal 2.0-7.7 [facility] Comment on above: Performed By: #### L [id number], L100.0100, L506.0400, L500.4100 #### [facility] [address] [place], [address] Basophils/100 WBC (Bld) 1.0 % Normal 0-1 [facility] Comment on above: Performed By: #### L 501.9520, L100.0100, L506.0400, L500.4100 #### [facility] [address] [place], [address] Eosinophils/100 WBC (Bld) 2.2 % Normal 0-5 [facility] Comment on above: Performed By: #### L 501.9520, L100.0100, L506.0400, L500.4100 #### [facility] [address] [place], [address] Erythrocyte distribution width (RBC) [Ratio] 12.5 % Normal 11.6-14.6 [facility] Comment on above: Performed By: #### L 501.9520, L100.0100, L506.0400, L500.4100 #### [facility] [address] [place], [address] Hematocrit (Bld) [Volume fraction] 41.0 % Normal 37-47 [facility] Comment on above: Performed By: #### L 501.9520, L100.0100, L506.0400, L500.4100 #### [facility] [address] [place], [address] Hemoglobin (Bld) [Mass/Vol] 13.3 g/dL Normal 12.0-15.0 [facility] Comment on above: Performed By: #### L 501.9520, L100.0100, L506.0400, L500.4100 #### [facility] [address] [place], [address] IG% 0.300 Normal 0.0-0.9 [facility] Comment on above: Result Comment: IG% - Immature Granulocytes (promyelocytes, myelocytes and metamyelocytes) > 1% indicates that a LEFT SHIFT is Present. Performed By: #### L 501.9520, L100.0100, L506.0400, L500.4100 #### [facility] [address] [place], [address] Lymphocytes/100 WBC (Bld) 28.2 % Normal 19-41 [facility] Comment on above: Performed By: #### L 501.9520, L100.0100, L506.0400, L500.4100 #### [facility] [address] [place], [address] MCH (RBC) [Entitic mass] 29.6 pg Normal 27.0-32.0 [facility] Comment on above: Performed By: #### L 501.9520, L100.0100, L506.0400, L500.4100 #### [facility] [address] [place], [address] MCHC (RBC) [Mass/Vol] 32.4 g/dL Normal 32-36 [facility] Comment on above: Performed By: #### L 501.9520, L100.0100, L506.0400, L500.4100 #### [facility] [address] [place], [address] MCV (RBC) [Entitic vol] 91.1 fL Normal 81-99 [facility] Comment on above: Performed By: #### L 501.9520, L100.0100, L506.0400, L500.4100 #### [facility] [address] [place], [address] Monocytes/100 WBC (Bld) 11.0 % High 0-10 [facility] Comment on above: Performed By: #### L 501.9520, L100.0100, L506.0400, L500.4100 #### [facility] [address] [place], [address] Neutrophils/100 WBC (Bld) 57.3 % Normal 47-70 [facility] Comment on above: Performed By: #### L 501.9520, L100.0100, L506.0400, L500.4100 #### [facility] [address] [place], [address] Nucleated RBC (Bld) [#/Vol] 0 10*3/uL Normal 0-5 [facility] Comment on above: Performed By: #### L 501.9520, L100.0100, L506.0400, L500.4100 #### [facility] [address] [place], [address] Platelet mean volume (Bld) [Entitic vol] 9.6 fL Normal 6.2-12.0 [facility] Comment on above: Performed By: #### L 501.9520, L100.0100, L506.0400, L500.4100 #### [facility] [address] [place], [address] Platelets (Bld) [#/Vol] 293 10*3/uL Normal 150-450 [facility] Comment on above: Performed By: #### L 501.9520, L100.0100, L506.0400, L500.4100 #### [facility] [address] [place], [address] RBC (Bld) [#/Vol] 4.50 10*6/uL Normal 4.2-5.4 [facility] Comment on above: Performed By: #### L 501.9520, L100.0100, L506.0400, L500.4100 #### [facility] [address] [place], [address] RDW SD 41.4 fl Normal 35.1-43.9 [facility] Comment on above: Performed By: #### L 501.9520, L100.0100, L506.0400, L500.4100 #### [facility] [address] [place], [address] WBC (Bld) [#/Vol] 7.3 10*3/uL Normal 4.4-11.0 [facility] Comment on above: Performed By: #### L 501.9520, L100.0100, L506.0400, L500.4100 #### [facility] [address] [place], [address] Lipid Profileon 07-22-2024 Cholesterol [Mass/Vol] 119 mg/dL Normal 200 [facility] Comment on above: Result Comment: <200 mg/dL Desirable 200-240 mg/dL Borderline >240 mg/dL High Risk Performed By: #### L 501.9520, L100.0100, L506.0400, L500.4100 #### [facility] [address] [place], [address] Cholesterol in HDL [Mass/Vol] 58 mg/dL Normal [facility] Comment on above: Result Comment: The drugs N-Acetylcysteine and Metamizole may falsely depress this assay. Reference Range HDL <40 mg/dL Low HDL Cholesterol HDL >or= 60 mg/dL High HDL Cholesterol Performed By: #### L 501.9520, L100.0100, L506.0400, L500.4100 #### [facility] [address] [place], [address] Cholesterol in LDL [Mass/Vol] 47 mg/dL Normal 0-130 [facility] Comment on above: Performed By: #### L 501.9520, L100.0100, L506.0400, L500.4100 #### [facility] [address] [place], [address] Cholesterol in VLDL [Mass/Vol] 14 mg/dL Normal 5-40 [facility] Comment on above: Performed By: #### L 501.9520, L100.0100, L506.0400, L500.4100 #### [facility] [address] [place], [address] Triglyceride [Mass/Vol] 68 mg/dL Normal [facility] Comment on above: Result Comment: The drugs N-Acetylcysteine and Metamizole may falsely depress this assay. Serum Triglycerides Reference Interval Normal <150 mg/dL Borderline high 150 - 199 mg/dL High 200 - 499 mg/dL Very High > or = 500 mg/dL Performed By: #### L 501.9520, L100.0100, L506.0400, L500.4100 #### [facility] [address] [place], [address] T4 Free Directon 07-22-2024 T4 FREE DIRECT 1.11 ng/dL Normal 0.76-1.46 [facility] Comment on above: Performed By: #### L 501.9520, L100.0100, L506.0400, L500.4100 #### [facility] [address] [place], [address] Thyroid Stim Hormone (TSH)on 07-22-2024 TSH 3.980 uIU/mL High 0.358-3.740 [facility] Comment on above: Performed By: #### L 501.9520, L100.0100, L506.0400, L500.4100 #### [facility] [address] [place], [address] US FEMALE PELVIS TRANSVAGon 07-15-2024 US FEMALE PELVIS TRANSVAG * * *Final Report* * * DATE OF EXAM: Jul 15 2024 5:39PM LDU 1060 - US FEMALE PELVIS TRANSVAG / PROCEDURE REASON: Menometrorrhagia * * * * Physician Interpretation * * * * EXAMINATION: TRANSVAGINAL FEMALE PELVIC ULTRASOUND CLINICAL HISTORY: Menometrorrhagia TECHNIQUE: Sonography of the pelvis was performed by transvaginal and transabdominal (limited) techniques. Images were obtained and stored in a permanent archive. MQ: [facility]_2021 COMPARISON: ultrasound of the pelvis 10/30/2020 and prior RESULT: Uterus: -Size: 7.3 x 4.4 x 4.4 cm -Orientation: Retroverted -Endometrial echo complex: Evaluation of the endometrium was adequate. No endometrial abnormality. The endometrial echo complex measured 0.9, a 2.5 cm nodular component suggested on the last image with vessel for which polypoid structure cannot be excluded. -Cervix: Unremarkable. -Adenomyosis assessment: There are no sonographic findings of adenomyosis. -Fibroids: There are no fibroids. Right Ovary: 4.5 x 3.2 x 2.1 cm - Normal sonographic appearance with physiologic follicles. Doppler imaging showed normal arterial and venous flow throughout the ovary. Left Ovary: 3.7 x 2.0 x 1.4 cm - Normal sonographic appearance with physiologic follicles. Doppler imaging showed normal arterial and venous flow throughout the ovary. Free Fluid: Small free fluid is likely physiologic. IMPRESSION: 1. A 2.5 cm nodular structure suggested in the endometrium on the last image, for which polyp cannot be excluded. Consider correlation with sonohysterogram or MRI. 2. No acute adnexal abnormalities. Cytometry Technologist: PSCOniel Transcribe Date/Time: Jul 18 2024 2:04P Dictated by : JAYME LOVELL MD This examination was interpreted and the report reviewed and electronically signed by: JAYME LOVELL MD on Jul 18 2024 2:56PM EST [id number] Normal [facility] 06-13-2024 [facility] Telephone (OBGWMA) IBAN RIDER ([id number]) 1980 F Date Time Provider Department 06/13/24 RENNY FAIRCHILD [facility] During your visit today, we recorded the following information about you: Jacque Josue LPN 06/13/2024 8:58 AM Signed Patient requesting to go over ultrasound results. External documents added 06/12/24. Jacque Josue LPN Allergies As of Date: 06/13/2024 Noted Allergy Reaction AMOXICILLIN 01/28/2013 2 - Rash Date Reviewed: 05/27/2024 Reviewed by: Heaven Guevara LPN - Fully Assessed Reason for Visit: Results [95] Prescriptions as of 06/13/2024 - triamcinolone acetonide topical 0.5 % ointment - cetirizine (ZYRTEC) 5 mg tablet Take 5 mg by mouth once daily. - VITAFOL ULTRA 29 mg iron- 1 mg-200 mg cap Take 1 capsule by mouth once daily. - Cholecalciferol, Vitamin D3, 2,000 unit cap Take 1 capsule by mouth. - naproxen (NAPROSYN) 375 mg tablet Take 375 mg by mouth as needed. - cyclobenzaprine (FLEXERIL) 10 mg tablet Take 10 mg by mouth once daily. - MULTIVITAMIN/IRON/FOLI C ACID (CENTRUM ULTRA WOMEN'S ORAL) Take by mouth once daily. - VIT A/VIT C/VIT E/ZINC/COPPER (PRESERVISION AREDS ORAL) Take by mouth as needed. - Cholecalciferol, Vitamin D3, 2,000 unit cap Take by mouth. - CALCIUM ORAL Take by mouth. - magnesium sulfate 100 mg cap Take by mouth. - LORazepam (ATIVAN) 0.5 mg tab Take by mouth three times daily as needed. - levothyroxine (SYNTHROID) 75 mcg tablet Take 75 mcg by mouth once daily. Problem List As Of Date 06/13/2024 Noted Resolved Hypothyroid [E03.9] 01/28/2013 Hirsutism [L68.0] 01/28/2013 Acne [L70.9] 01/28/2013 Breast mass [N63.0] 02/20/2014 06/17/2014 Lump or mass in breast [N63.0] 05/20/2014 06/17/2014 Vitamin D deficiency [E55.9] 02/20/2015 Left breast mass [N63.20] 08/04/2015 Encounter Status:Closed by JAC[facility]13/24 [facility] Visit ([place]) IBAN RIDER ([id number]) 1980 F Date Time Provider Department 05/27/24 8:00 AM RENNY FAIRCHILD During your visit today, we recorded the following information about you: Pulse Respiration Blood pressure Weight 48/minute 16/minute 118/76 51.8 kg Height Last Period 1.6 m 05/14/24 Renny Fairchild MD 05/27/2024 8:36 AM Signed Patient here to discuss periods. Having brownish discharge usually at end of cycle. Discussed with patient. Will get ultrasound for endometrial thickening and if normal will observe. Patient in agreement. Impression -- menometrorrhagia Plan ultrasound. Renny Fairchild MD Referring Provider: RENNY FAIRCHILD [[id number]] Allergies As of Date: 05/27/2024 Noted Allergy Reaction AMOXICILLIN 01/28/2013 2 - Rash Date Reviewed: 05/27/2024 Reviewed by: Heaven Guevara LPN - Fully Assessed Reason for Visit: Vaginal Discharge [4161] Cmt: Discharge after periods Primary Visit Diagnosis:Menometrorrh agia [N92.1] Order(s): FEMALE PELVIS TRANSVAG [[id number]] Order #: [id number] FUTURE Prescriptions as of 05/27/2024 - triamcinolone acetonide topical 0.5 % ointment - cetirizine (ZYRTEC) 5 mg tablet Take 5 mg by mouth once daily. - VITAFOL ULTRA 29 mg iron- 1 mg-200 mg cap Take 1 capsule by mouth once daily. - Cholecalciferol, Vitamin D3, 2,000 unit cap Take 1 capsule by mouth. - naproxen (NAPROSYN) 375 mg tablet Take 375 mg by mouth as needed. - cyclobenzaprine (FLEXERIL) 10 mg tablet Take 10 mg by mouth once daily. - MULTIVITAMIN/IRON/FOLI C ACID (CENTRUM ULTRA WOMEN'S ORAL) Take by mouth once daily. - VIT A/VIT C/VIT E/ZINC/COPPER (PRESERVISION AREDS ORAL) Take by mouth as needed. - Cholecalciferol, Vitamin D3, 2,000 unit cap Take by mouth. - CALCIUM ORAL Take by mouth. - magnesium sulfate 100 mg cap Take by mouth. - LORazepam (ATIVAN) 0.5 mg tab Take by mouth three times daily as needed. - levothyroxine (SYNTHROID) 75 mcg tablet Take 75 mcg by mouth once daily. Problem List As Of Date 05/27/2024 Noted Resolved Hypothyroid [E03.9] 01/28/2013 Hirsutism [L68.0] 01/28/2013 Acne [L70.9] 01/28/2013 Breast mass [N63.0] 02/20/2014 06/17/2014 Lump or mass in breast [N63.0] 05/20/2014 06/17/2014 Vitamin D deficiency [E55.9] 02/20/2015 Left breast mass [N63.20] 08/04/2015 Encounter Status:Closed by RENNY FAIRCHILD on 05/27/24 [facility] HISTORY PHYSICALon HISTORY PHYSICAL HNO ID: [id number] Author: RENNY FAIRCHILD MD Service: ? Author Type: Physician Type: H&P Filed: 05/27/2024 08:36 Note Text: Patient here to discuss periods. Having brownish discharge usually at end of cycle. Discussed with patient. Will get ultrasound for endometrial thickening and if normal will observe. Patient in agreement. Impression -- menometrorrhagia Plan ultrasound. Renny Fairchild MD [facility] Absolute lymphocyte countOrd ered By: Sarah Antony on 01-23-2024 Lymphocytes Auto (Unsp spec) [#/Vol] 1.95 10*3/uL 0.83-4.51 [facility] Automated lymphocyte count a s percentage of total leukocytesOrdered By: Sarah Antony on 01-23-2024 Lymphocytes/100 WBC Auto (Unsp spec) 29.2 % 19-41 [facility] Basophil percentageOrdered B y: Sarah Antony on 01-23-2024 Basophils/100 WBC (Bld) 1.3 % 0-1 [facility] Bilirubin [Mass/Vol] 0.70 mg/dL 0.20-1.00 [facility] Comment on above: For patients on eltr ombopag therapy, use of Dimension [place] TBIL is not recommended. Chloride [Moles/Vol] 108 mmol/L 98-107 [facility] Cholesterol [Mass/Vol] 141 mg/dL <200 [facility] Comment on above: <200 mg/dL Desirable 200-240 mg/dL Borderline >240 mg/dL High Risk Eosinophils/100 WBC (Bld) 2.7 % 0-5 [facility] Glucose [Mass/Vol] 90 mg/dL 74-106 [facility] Hemoglobin (Bld) [Mass/Vol] 13.7 g/dL 12.0-15.0 [facility] Monocytes/100 WBC (Bld) 8.8 % 0-10 [facility] Neutrophils (Bld) [#/Vol] 3.9 10*3/uL 2.0-7.7 [facility] Neutrophils/100 WBC (Bld) 57.9 % 47-70 [facility] Potassium [Moles/Vol] 3.8 mmol/L 3.5-5.1 [facility] Protein [Mass/Vol] 7.3 g/dL 6.4-8.2 [facility] Sodium [Moles/Vol] 139 mmol/L 136-145 [facility] Triglyceride [Mass/Vol] 41 mg/dL <199 [facility] Comment on above: The drugs N-Acetylcy steine and Metamizole may falsely depress this assay.Serum Triglycerides Reference Interval Normal <150 mg/dL Borderline high 150 - 199 mg/dL High 200 - 499 mg/dL Very High > or = 500 mg/dL WBC (Bld) [#/Vol] 6.7 10*3/uL 4.4-11.0 [facility] CNPPaulina 01-23-2024 [facility] Telephone (KEITH) IBAN RIDER ([id number]) 1980 F Date Time Provider Department 01/23/24 RENNY FAIRCHILD During your visit today, we recorded the following information about you: Alirio Conteh RN 01/23/2024 8:[address] Antony's office called asking for pt's most recent pap test results to be faxed to [phone]. Done. Alirio Conteh RN Allergies As of Date: 01/23/2024 Noted Allergy Reaction AMOXICILLIN 01/28/2013 2 - Rash Date Reviewed: 06/26/2023 Reviewed by: Renny Fairchild MD - Fully Assessed Reason for Visit: Results [95] Lead Nurse - Other [3602] Prescriptions as of 01/23/2024 - triamcinolone acetonide topical 0.5 % ointment - cetirizine (ZYRTEC) 5 mg tablet Take 5 mg by mouth once daily. - VITAFOL ULTRA 29 mg iron- 1 mg-200 mg cap Take 1 capsule by mouth once daily. - Cholecalciferol, Vitamin D3, 2,000 unit cap Take 1 capsule by mouth. - naproxen (NAPROSYN) 375 mg tablet Take 375 mg by mouth as needed. - cyclobenzaprine (FLEXERIL) 10 mg tablet Take 10 mg by mouth once daily. - MULTIVITAMIN/IRON/FOLI C ACID (CENTRUM ULTRA WOMEN'S ORAL) Take by mouth once daily. - VIT A/VIT C/VIT E/ZINC/COPPER (PRESERVISION AREDS ORAL) Take by mouth as needed. - Cholecalciferol, Vitamin D3, 2,000 unit cap Take by mouth. - CALCIUM ORAL Take by mouth. - magnesium sulfate 100 mg cap Take by mouth. - LORazepam (ATIVAN) 0.5 mg tab Take by mouth three times daily as needed. - levothyroxine (SYNTHROID) 75 mcg tablet Take 75 mcg by mouth once daily. Problem List As Of Date 01/23/2024 Noted Resolved Hypothyroid [E03.9] 01/28/2013 Hirsutism [L68.0] 01/28/2013 Acne [L70.9] 01/28/2013 Breast mass [N63.0] 02/20/2014 06/17/2014 Lump or mass in breast [N63.0] 05/20/2014 06/17/2014 Vitamin D deficiency [E55.9] 02/20/2015 Left breast mass [N63.20] 08/04/2015 Encounter Status:Closed by ALIRIO CONTEH on 01/23/24 [facility] Determination of erythrocyte mean corpuscular volume (MCV)Ordered By: Sarah Antony on 01-23-2024 MCV (RBC) [Entitic vol] 90.9 fL 81-99 [facility] Erythrocyte distribution wid th ratioOrdered By: Sarah Antony on 01-23-2024 Erythrocyte distribution width (RBC) [Ratio] 12.4 % 11.6-14.6 [facility] Erythrocyte distribution wid th standard deviationOrdered By: Sarah Antony on 01-23-2024 Erythrocyte distribution width (RBC) [Entitic vol] 41.0 fL 35.1-43.9 [facility] Hematocrit Auto (Bld) [Volum e fraction]Ordered By: Sarah Antony on 01-23-2024 Hematocrit (Bld) [Volume fraction] 42.2 % 37-47 [facility] Immature granulocytes/100 WB C Auto (Bld)Ordered By: Sarah Antony on 01-23-2024 Immature granulocytes/100 WBC (Bld) 0.100 % 0.0-0.9 [facility] Comment on above: IG% - Immature Granu locytes (promyelocytes, myelocytes and metamyelocytes) > 1% indicates that a LEFT SHIFT is Present. Laboratory - Chemistry and C hemistry - challengeOrdered By: Sarah Antony on 01-23-2024 Albumin/Globulin [Mass ratio] 1.0 {ratio} 0.9-2.4 [facility] ALP [Catalytic activity/Vol] 85 U/L 45-117 [facility] ALT [Catalytic activity/Vol] 25 U/L 13-56 [facility] Cholesterol in HDL [Mass/Vol] 55 mg/dL >40 [facility] Comment on above: The drugs N-Acetylcy steine and Metamizole may falsely depress this assay. Reference Range HDL <40 mg/dL Low HDL Cholesterol HDL >or= 60 mg/dL High HDL Cholesterol Cholesterol in LDL [Mass/Vol] 78 mg/dL 0-130 [facility] CO2 [Moles/Vol] 26.0 mmol/L 21.0-32.0 [facility] Globulin (S) [Mass/Vol] 3.6 g/dL 2.2-4.2 [facility] Urea nitrogen/Creatinine [Mass ratio] 16.1 mg/mg 10-20 [facility] Laboratory - Hematology and Cell countsOrdered By: Sarah Antony on 01-23-2024 MCH (RBC) [Entitic mass] 29.5 pg 27.0-32.0 [facility] MCHC (RBC) [Mass/Vol] 32.5 g/dL 32-36 [facility] Nucleated RBC/100 WBC (Bld) [Ratio] 0 % 0-5 [facility] Platelet mean volume (Bld) [Entitic vol] 8.9 fL 6.2-12.0 [facility] Platelets (Bld) [#/Vol] 296 10*3/uL 150-450 [facility] No Panel InformationOrdered By: Sarah Antony on 01-23-2024 Estimated GFR (MDRD) Amer 120 mL/min >60 [facility] Comment on above: GFR Calc Estimated GFR (MDRD) Non-Af Amer 99 mL/min >60 [facility] Comment on above: Non- GFR Calc Vitamin D 25-Hydroxy 67.1 ng/mL [facility] Comment on above: Vitamin D 25(OH) Sta tus Range Deficiency <20 ng/mL (50nmol/L) Insufficiency 20 - 30 ng/mL (50 - 75 nmol/L) Sufficiency 30 - 100 ng/mL (75 - 250 nmol/L) Toxicity >100 ng/mL (>250 nmol/L) VLDL Cholesterol 8 mg/dL 5-40 [facility] RBC Auto (Bld) [#/Vol]Ordere d By: Sarah Antony on 01-23-2024 RBC (Bld) [#/Vol] 4.64 10*6/uL 4.2-5.4 [facility] Serum or plasma calcium zonia urement (mass/volume)Ordered By: Sarah Antony on 01-23-2024 Calcium [Mass/Vol] 8.7 mg/dL 8.5-10.1 [facility] Serum or plasma creatinine m easurement (mass/volume)Ordered By: Sarah Antony on 01-23-2024 Creatinine [Mass/Vol] 0.68 mg/dL 0.55-1.02 [facility] Comment on above: The validity of the calculated GFR & GFRAA in patients over 70 years has not been determined. Clinical correlation is essential. Serum or plasma thyroid stim ulating hormone (TSH) measurement (units/volume)Ordered By: Sarah Antony on 01-23-2024 TSH Qn 3.29 uIU/mL 0.358-3.74 [facility] Serum or plasma urea nitroge n measurement (mass/volume)Ordered By: Sarah Antony on 01-23-2024 Urea nitrogen [Mass/Vol] 11 mg/dL 7-18 [facility] Thin prep Papanicolaou smear with manual screeningOrdered By: Sarah Antony on 01-23-2024 Thin prep Papanicolaou smear with manual screening 3.7 g/dL 3.2-5.0 [facility] Thin prep Papanicolaou smear with manual screening 26 U/L 15-37 [facility] Thin prep Papanicolaou smear with manual screening 5 5-15 [facility] Thin prep Papanicolaou smear with manual screening 1.17 ng/dL 0.76-1.46 [facility] Absolute lymphocyte countOrd ered By: Sarah Antony on 07-25-2023 Lymphocytes Auto (Unsp spec) [#/Vol] 1.70 10*3/uL 0.83-4.51 [facility] Basophil percentageOrdered B y: Sarah Antony on 07-25-2023 Basophils/100 WBC (Bld) 1.2 % 0-1 [facility] Bilirubin [Mass/Vol] 0.50 mg/dL 0.20-1.00 [facility] Comment on above: For patients on eltr ombopag therapy, use of Dimension Grand Chain TBIL is not recommended. Chloride [Moles/Vol] 108 mmol/L 98-107 [facility] Eosinophils/100 WBC (Bld) 2.6 % 0-5 [facility] Glucose [Mass/Vol] 91 mg/dL 74-106 [facility] Neutrophils (Bld) [#/Vol] 3.3 10*3/uL 2.0-7.7 [facility] Neutrophils/100 WBC (Bld) 57.5 % 47-70 [facility] Potassium [Moles/Vol] 3.9 mmol/L 3.5-5.1 [facility] Protein [Mass/Vol] 6.8 g/dL 6.4-8.2 [facility] Sodium [Moles/Vol] 139 mmol/L 136-145 [facility] WBC (Bld) [#/Vol] 5.8 10*3/uL 4.4-11.0 [facility] Blood erythrocytes count (nu mber/volume)Ordered By: Sarah Antony on 07-25-2023 RBC (Bld) [#/Vol] 4.25 10*6/uL 4.2-5.4 [facility] Blood hemoglobin measurement (mass/volume)Ordered By: Sarah Antony on 07-25-2023 Hemoglobin (Bld) [Mass/Vol] 12.6 g/dL 12.0-15.0 [facility] Blood lymphocytes/100 leukoc ytesOrdered By: Sarah Antony on 07-25-2023 Lymphocytes/100 WBC (Bld) 29.5 % 19-41 [facility] Blood monocytes/100 leukocyt esOrdered By: Sarah Antony on 07-25-2023 Monocytes/100 WBC (Bld) 9.0 % 0-10 [facility] Blood platelet mean volumeOr dered By: Sarah Antony on 07-25-2023 Platelet mean volume (Bld) [Entitic vol] 9.6 fL 6.2-12.0 [facility] Determination of erythrocyte mean corpuscular volume (MCV)Ordered By: Sarah Antony on 07-25-2023 MCV (RBC) [Entitic vol] 93.2 fL 81-99 [facility] Hematocrit Auto (Bld) [Volum e fraction]Ordered By: Sarah Antony on 07-25-2023 Hematocrit (Bld) [Volume fraction] 39.6 % 37-47 [facility] Laboratory - Chemistry and C hemistry - challengeOrdered By: Sarah Antony on 07-25-2023 ALP [Catalytic activity/Vol] 78 U/L 45-117 [facility] ALT [Catalytic activity/Vol] 28 U/L 13-56 [facility] CO2 [Moles/Vol] 26.0 mmol/L 21.0-32.0 [facility] Free T4 [Mass/Vol] 1.21 ng/dL 0.76-1.46 [facility] Globulin (S) [Mass/Vol] 3.5 g/dL 2.2-4.2 [facility] Urea nitrogen/Creatinine [Mass ratio] 24.0 mg/mg 10-20 [facility] Laboratory - Hematology and Cell countsOrdered By: Sarah Antony on 07-25-2023 Erythrocyte distribution width (RBC) [Entitic vol] 43.7 fL 35.1-43.9 [facility] Erythrocyte distribution width (RBC) [Ratio] 12.7 % 11.6-14.6 [facility] Immature granulocytes/100 WBC (Bld) 0.200 % 0.0-0.9 [facility] Comment on above: IG% - Immature Granu locytes (promyelocytes, myelocytes and metamyelocytes) > 1% indicates that a LEFT SHIFT is Present. MCH (RBC) [Entitic mass] 29.6 pg 27.0-32.0 [facility] Nucleated RBC/100 WBC (Bld) [Ratio] 0 % 0-5 [facility] MCHC Auto (RBC) [Mass/Vol]Or dered By: Sarah Antony on 07-25-2023 MCHC (RBC) [Mass/Vol] 31.8 g/dL 32-36 [facility] No Panel InformationOrdered By: Sarah Antony on 07-25-2023 Estimated GFR (MDRD) Amer 124 mL/min >60 [facility] Comment on above: GFR Calc Estimated GFR (MDRD) Non-Af Amer 102 mL/min >60 [facility] Comment on above: Non- GFR Calc Thyroid Stimulating Hormone (TSH) 2.41 uIU/mL 0.358-3.74 [facility] Vitamin D 25-Hydroxy 78.6 ng/mL [facility] Comment on above: Vitamin D 25(OH) Sta tus Range Deficiency <20 ng/mL (50nmol/L) Insufficiency 20 - 30 ng/mL (50 - 75 nmol/L) Sufficiency 30 - 100 ng/mL (75 - 250 nmol/L) Toxicity >100 ng/mL (>250 nmol/L) Platelets bldOrdered By: Jorden Antony on 07-25-2023 Platelets (Bld) [#/Vol] 277 10*3/uL 150-450 [facility] Serum or plasma albumin zonia urement (mass/volume)Ordered By: Sarah Antony on 07-25-2023 Albumin [Mass/Vol] 3.3 g/dL 3.2-5.0 [facility] Serum or plasma albumin/glob ulin mass ratioOrdered By: Sarah Antony on 07-25-2023 Albumin/Globulin [Mass ratio] 0.9 {ratio} 0.9-2.4 [facility] Serum or plasma calcium zonia urement (mass/volume)Ordered By: Sarah Antony on 07-25-2023 Calcium [Mass/Vol] 8.6 mg/dL 8.5-10.1 [facility] Serum or plasma creatinine m easurement (mass/volume)Ordered By: Sarah Antony on 07-25-2023 Creatinine [Mass/Vol] 0.67 mg/dL 0.55-1.02 [facility] Comment on above: The validity of the calculated GFR & GFRAA in patients over 70 years has not been determined. Clinical correlation is essential. Serum or plasma urea nitroge n measurement (mass/volume)Ordered By: Sarah Antony on 07-25-2023 Urea nitrogen [Mass/Vol] 16 mg/dL 7-18 [facility] Thin prep Papanicolaou smear with manual screeningOrdered By: Sarah Antony on 07-25-2023 Thin prep Papanicolaou smear with manual screening 24 U/L 15-37 [facility] Thin prep Papanicolaou smear with manual screening 5 5-15 [facility] Basophil percentageOrdered B y: Dr. Antony on 01-12-2023 Bilirubin [Mass/Vol] 0.50 mg/dL 0.20-1.00 [facility] Comment on above: For patients on eltr ombopag therapy, use of Dimension Grand Chain TBIL is not recommended. Chloride [Moles/Vol] 107 mmol/L 98-107 [facility] Glucose [Mass/Vol] 81 mg/dL 74-106 [facility] Potassium [Moles/Vol] 3.9 mmol/L 3.5-5.1 [facility] Protein [Mass/Vol] 7.4 g/dL 6.4-8.2 [facility] Sodium [Moles/Vol] 136 mmol/L 136-145 [facility] Laboratory - Chemistry and C hemistry - challengeOrdered By: Dr. Antony on 01-12-2023 ALP [Catalytic activity/Vol] 71 U/L 45-117 [facility] ALT [Catalytic activity/Vol] 23 U/L 13-56 [facility] CO2 [Moles/Vol] 25.0 mmol/L 21.0-32.0 [facility] Free T4 [Mass/Vol] 1.26 ng/dL 0.76-1.46 [facility] Globulin (S) [Mass/Vol] 3.6 g/dL 2.2-4.2 [facility] Urea nitrogen/Creatinine [Mass ratio] 22.9 mg/mg 10-20 [facility] No Panel InformationOrdered By: Dr. Antony on 01-12-2023 Estimated GFR (MDRD) Amer 118 mL/min >60 [facility] Comment on above: GFR Calc Estimated GFR (MDRD) Non-Af Amer 97 mL/min >60 [facility] Comment on above: Non- GFR Calc Thyroid Stimulating Hormone (TSH) 3.81 uIU/mL 0.358-3.74 [facility] Serum or plasma albumin zonia urement (mass/volume)Ordered By: Dr. Antony on 01-12-2023 Albumin [Mass/Vol] 3.8 g/dL 3.2-5.0 [facility] Serum or plasma albumin/glob ulin mass ratioOrdered By: Dr. Antony on 01-12-2023 Albumin/Globulin [Mass ratio] 1.1 {ratio} 0.9-2.4 [facility] Serum or plasma calcium zonia urement (mass/volume)Ordered By: Dr. Antony on 01-12-2023 Calcium [Mass/Vol] 8.7 mg/dL 8.5-10.1 [facility] Serum or plasma creatinine m easurement (mass/volume)Ordered By: Dr. Antony on 01-12-2023 Creatinine [Mass/Vol] 0.70 mg/dL 0.55-1.02 [facility] Comment on above: The validity of the calculated GFR & GFRAA in patients over 70 years has not been determined. Clinical correlation is essential. Serum or plasma urea nitroge n measurement (mass/volume)Ordered By: Dr. Antony on 01-12-2023 Urea nitrogen [Mass/Vol] 16 mg/dL 7-18 [facility] Thin prep Papanicolaou smear with manual screeningOrdered By: Dr. Antony on 01-12-2023 Thin prep Papanicolaou smear with manual screening 22 U/L 15-37 [facility] Thin prep Papanicolaou smear with manual screening 4 5-15 [facility] Absolute lymphocyte counton 07-19-2022 Lymphocytes Auto (Unsp spec) [#/Vol] 2.10 10*3/uL 0.83-4.51 [facility] Work Phone: Basophil percentageon 2021 Basophils/100 WBC (Bld) 1.3 % 0-1 [facility] Work Phone: Bilirubin [Mass/Vol] 0.50 mg/dL 0.20-1.00 [facility] Work Phone: Comment on above: For patients on eltr ombopag therapy, use of Dimension [employer] TBIL is not recommended. Chloride [Moles/Vol] 105 mmol/L 98-107 [facility] Work Phone: Cholesterol [Mass/Vol] 119 mg/dL <200 [facility] Work Phone: [phone] Comment on above: <200 mg/dL Desirable 200-240 mg/dL Borderline >240 mg/dL High Risk Eosinophils/100 WBC (Bld) 1.8 % 0-5 [facility] Work Phone: Glucose [Mass/Vol] 82 mg/dL 74-106 [facility] Work Phone: [phone] Neutrophils (Bld) [#/Vol] 5.0 10*3/uL 2.0-7.7 [facility] Work Phone: Neutrophils/100 WBC (Bld) 63.0 % 47-70 [facility] Work Phone: [phone] Potassium [Moles/Vol] 3.8 mmol/L 3.5-5.1 [facility] Work Phone: [phone] Protein [Mass/Vol] 7.5 g/dL 6.4-8.2 [facility] Work Phone: Sodium [Moles/Vol] 135 mmol/L 136-145 [facility] Work Phone: Triglyceride [Mass/Vol] 48 mg/dL <199 [facility] Work Phone: Comment on above: The drugs N-Acetylcy steine and Metamizole may falsely depress this assay.Serum Triglycerides Reference Interval Normal <150 mg/dL Borderline high 150 - 199 mg/dL High 200 - 499 mg/dL Very High > or = 500 mg/dL WBC (Bld) [#/Vol] 7.8 10*3/uL 4.4-11.0 [facility] Work Phone: Blood erythrocytes count (nu mber/volume)on 07-19-2022 RBC (Bld) [#/Vol] 4.52 10*6/uL 4.2-5.4 [facility] Work Phone: Blood hemoglobin measurement (mass/volume)on 07-19-2022 Hemoglobin (Bld) [Mass/Vol] 13.9 g/dL 12.0-15.0 [facility] Work Phone: Blood lymphocytes/100 leukoc yteson 07-19-2022 Lymphocytes/100 WBC (Bld) 26.8 % 19-41 [facility] Work Phone: Blood monocytes/100 leukocyt eson 07-19-2022 Monocytes/100 WBC (Bld) 6.8 % 0-10 [facility] Work Phone: Blood platelet mean volumeon 07-19-2022 Platelet mean volume (Bld) [Entitic vol] 9.4 fL 6.2-12.0 [facility] Work Phone: Determination of erythrocyte mean corpuscular volume (MCV)on 07-19-2022 MCV (RBC) [Entitic vol] 91.6 fL 81-99 [facility] Work Phone: Hematocrit Auto (Bld) [Volum e fraction]on 07-19-2022 Hematocrit (Bld) [Volume fraction] 41.4 % 37-47 [facility] Work Phone: [phone] Laboratory - Chemistry and C hemistry - challengeon 07-19-2022 ALP [Catalytic activity/Vol] 73 U/L 45-117 [facility] Work Phone: ALT [Catalytic activity/Vol] 22 U/L 13-56 [facility] Work Phone: [phone] CO2 [Moles/Vol] 24.0 mmol/L 21.0-32.0 [facility] Work Phone: Free T4 [Mass/Vol] 1.28 ng/dL 0.76-1.46 [facility] Work Phone: Globulin (S) [Mass/Vol] 3.6 g/dL 2.2-4.2 [facility] Work Phone: Urea nitrogen/Creatinine [Mass ratio] 18.3 mg/mg 10-20 [facility] Work Phone: Laboratory - Hematology and Cell countson 07-19-2022 Erythrocyte distribution width (RBC) [Entitic vol] 42.7 fL 35.1-43.9 [facility] Work Phone: Erythrocyte distribution width (RBC) [Ratio] 12.6 % 11.6-14.6 [facility] Work Phone: Immature granulocytes/100 WBC (Bld) 0.300 % 0.0-0.9 [facility] Work Phone: Comment on above: IG% - Immature Granu locytes (promyelocytes, myelocytes and metamyelocytes) > 1% indicates that a LEFT SHIFT is Present. MCH (RBC) [Entitic mass] 30.8 pg 27.0-32.0 [facility] Work Phone: Nucleated RBC/100 WBC (Bld) [Ratio] 0 % 0-5 [facility] Work Phone: MCHC Auto (RBC) [Mass/Vol]on 07-19-2022 MCHC (RBC) [Mass/Vol] 33.6 g/dL 32-36 [facility] Work Phone: No Panel Informationon 07-19 Estimated GFR (MDRD) Amer 128 mL/min >60 [facility] Work Phone: Comment on above: GFR Calc Estimated GFR (MDRD) Non-Af Amer 105 mL/min >60 [facility] Work Phone: Comment on above: Non- GFR Calc Thyroid Stimulating Hormone (TSH) 1.37 uIU/mL 0.358-3.74 [facility] Work Phone: Platelets bldon 07-19-2022 Platelets (Bld) [#/Vol] 294 10*3/uL 150-450 [facility] Work Phone: Serum or plasma albumin zonia urement (mass/volume)on 07-19-2022 Albumin [Mass/Vol] 3.9 g/dL 3.2-5.0 [facility] Work Phone: Serum or plasma albumin/glob ulin mass ratioon 07-19-2022 Albumin/Globulin [Mass ratio] 1.1 {ratio} 0.9-2.4 [facility] Work Phone: Serum or plasma calcium zonia urement (mass/volume)on 07-19-2022 Calcium [Mass/Vol] 8.7 mg/dL 8.5-10.1 [facility] Work Phone: Serum or plasma cholesterol in HDL measurement (mass/volume)on 07-19-2022 Cholesterol in HDL [Mass/Vol] 57 mg/dL >40 [facility] Work Phone: Comment on above: The drugs N-Acetylcy steine and Metamizole may falsely depress this assay. Reference Range HDL <40 mg/dL Low HDL Cholesterol HDL >or= 60 mg/dL High HDL Cholesterol Serum or plasma cholesterol in VLDL measurement (mass/volume)on 07-19-2022 Cholesterol in VLDL [Mass/Vol] 10 mg/dL 5-40 [facility] Work Phone: Serum or plasma creatinine m easurement (mass/volume)on 07-19-2022 Creatinine [Mass/Vol] 0.65 mg/dL 0.55-1.02 [facility] Work Phone: Comment on above: The validity of the calculated GFR & GFRAA in patients over 70 years has not been determined. Clinical correlation is essential. Serum or plasma low density lipoprotein (LDL) cholesterol measurement (mass/volume)on 07-19-2022 Cholesterol in LDL [Mass/Vol] 52 mg/dL 0-130 [facility] Work Phone: Serum or plasma urea nitroge n measurement (mass/volume)on 07-19-2022 Urea nitrogen [Mass/Vol] 12 mg/dL 7-18 [facility] Work Phone: Thin prep Papanicolaou smear with manual screeningon 07-19-2022 Thin prep Papanicolaou smear with manual screening 23 U/L 15-37 [facility] Work Phone: Thin prep Papanicolaou smear with manual screening 6 5-15 [facility] Work Phone: CNOVon 02-28-2022 CNOV Office Visit ([place]) IBAN RIDER ([id number]) 1980 F Date Time Provider Department 02/28/22 8:15 AM RENNY FAIRCHILD During your visit today, we recorded the following information about you: Temperature Pulse Respiration Blood pressure 98.4 degrees 51/minute 12/minute 101/64 Weight Height Last Period 49.9 kg 1.588 m 02/14/22 Renny Fairchild MD 02/28/2022 9:32 AM Signed Patient concerned about FCBD. Mammogram normal in October. Discussed SBE. Patient not due for pap until July. Patient notified. MD Renny Frank MD 02/28/2022 9:32 AM Signed - Please call the office before going to the hospital. - If you are , go to the ER at the hospital main campus. Do not go to the outlying ER?s ([place], [place] or [place]). - If you need to go to an ER and cannot or will not go downtown, please use one of [facility]?s ER?s (not [place], [place] or [facility]). 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 - VITAFOL ULTRA 29 mg iron- 1 mg-200 mg cap Take 1 capsule by mouth once daily. - Cholecalciferol, Vitamin D3, 2,000 unit cap Take 1 capsule by mouth. - naproxen (NAPROSYN) 375 mg tablet Take 375 mg by mouth as needed. - cyclobenzaprine (FLEXERIL) 10 mg tablet Take 10 mg by mouth once daily. - MULTIVITAMIN/IRON/FOLI C ACID (CENTRUM ULTRA WOMEN'S ORAL) Take by mouth once daily. - VIT A/VIT C/VIT E/ZINC/COPPER (PRESERVISION AREDS ORAL) Take by mouth as needed. - Cholecalciferol, Vitamin D3, 2,000 unit cap Take by mouth. - CALCIUM ORAL Take by mouth. - magnesium sulfate 100 mg cap Take by mouth. - LORazepam (ATIVAN) 0.5 mg tab Take by mouth three times daily as needed. - levothyroxine (LEVOTHROID) 75 mcg tablet Take 75 mcg by mouth once daily. Problem List As Of Date 02/28/2022 Noted Resolved Hypothyroid [E03.9] 01/28/2013 Hirsutism [L68.0] 01/28/2013 Acne [L70.9] 01/28/2013 Breast mass [N63.0] 02/20/2014 06/17/2014 Lump or mass in breast [N63.0] 05/20/2014 06/17/2014 Vitamin D deficiency [E55.9] 02/20/2015 Left breast mass [N63.20] 08/04/2015 Other instructions from your clinician: - Please call the office before going to the hospital. - If you are , go to the ER at the [facility] [place]. Do not go to the outlying ER?s ([place], [place] or [place]). - If you need to go to an ER and cannot or will not go downtown, please use one of [facility]?s ER?s (not [place], [place] or [place]). Follow-up and Disposition History for Encounter Date Provider Department Center 02/28[facility]20[id number] Encounter Status:Closed by RENNY FAIRCHILD on 02/28/[address] [facility] HISTORY PHYSICALon 2 HISTORY PHYSICAL HNO ID: [id number] Author: Renny Fairchild MD Service: ? Author Type: Physician Type: HANDP Filed: 02/28/2022 9:32 AM Note Text: Patient concerned about FCBD. Mammogram normal in October. Discussed SBE. Patient not due for pap until July. Patient notified. Renny Fairchild MD Normal [facility] Laboratory - Chemistry and C hemistry - challengeon 01-05-2022 Free T4 [Mass/Vol] 1.07 ng/dL 0.76-1.46 [facility] Work Phone: No Panel Informationon 01-05 Thyroid Stimulating Hormone (TSH) 2.24 uIU/mL 0.358-3.74 [facility] Work Phone: CNOVon 07-05-2021 CNOV Office Visit ([place]) IBAN RIDER ([id number]) 1980 F Date Time Provider Department 07/05/21 8:00 AM RENNY FAIRCHILD During your visit today, we recorded the following information about you: Temperature Pulse Blood pressure Weight 96.8 degrees 60/minute 97/69 49.9 kg Height Last Period 1.6 m 06/19/21 Renny Fairchild MD 07/05/2021 8:51 AM Signed Iban Rider is a 41 year old [...] 5 mg by mouth once daily. - MULTIVITAMIN/IRON/FOLI C ACID (CENTRUM ULTRA WOMEN'S ORAL) Take by [...] FCBD bilaterally as before. No discrete lump CLOTH FRAMER: Vulva - normal, [place]'s duct palpable bilaterally. Patient states this has [...] one year. - PAP FLUID CERVICAL SCREENING Renny Fairchild MD Referring Provider: SELF [[id number]] Allergies As of Date: 07/05/2021 Noted Allergy Reaction AMOXICILLIN 01/28/2013 2 - Rash Date Reviewed: 07/05/2021 Reviewed by: Renny Fairchild MD - Fully Assessed Reason for Visit: Yearly Exam [187] Cmt: Pt presents for an annual exam. Pt notes a lump in vaginal area and some spotting. Primary Visit Diagnosis:Encounter for annual routine gynecological examination [Z01.419] Other Visit Diagnosis:Encounter for Papanicolaou smear for cervical cancer screening [Z12.4] Order(s):PAP FLUID CERVICAL SCREENING [[id number]] Order #: [id number]. #:[id number] Prescriptions as of 07/05/2021 - triamcinolone acetonide topical 0.5 % ointment - cetirizine (ZYRTEC) 5 mg tablet Take 5 mg by mouth once daily. - VITAFOL ULTRA 29 mg iron- 1 mg-200 mg cap Take 1 capsule by mouth once daily. - Cholecalciferol, Vitamin D3, 2,000 unit cap Take 1 capsule by mouth. - naproxen (NAPROSYN) 375 mg tablet Take 375 mg by mouth as needed. (more content not included)... Normal [facility] FEMALE PELVIS TRANSVAGon 10-30-2020 US FEMALE PELVIS TRANSVAG Final Report DATE OF EXAM: Oct 30 2020 5:09PM LDU 1060 - US FEMALE PELVIS TRANSVAG / PROCEDURE REASON: Endometrial thickening on ultrasound Physician Interpretation EXAMINATION: TRANSVAGINAL AND LIMITED TRANSABDOMINAL PELVIC ULTRASOUND CLINICAL HISTORY: Endometrial thickening TECHNIQUE: Sonography of the pelvis was performed by transvaginal and transabdominal (limited) techniques. Images were obtained and stored in a permanent archive. MQ: UFP_1 COMPARISON: 07/22/2020 RESULT: Uterus size: 7.2 x 3.0 x 5.9 cm -Orientation: Anteverted -Myometrium: Normal sonographic appearance. -Endometrial echo complex: 0.9 cm -Cervix: normal Right ovary: 4.6 x 2.4 x 3.6 cm Normal sonographic appearance with physiologic follicles. Arterial and venous flow is present throughout the ovary on color Doppler imaging with normal spectral waveforms. Left ovary: 3.7 x 1.9 x 3.0 cm Normal sonographic appearance with physiologic follicles. Arterial and venous flow is present throughout the left ovary on color Doppler imaging with normal spectral waveforms. Pelvis free fluid: None. IMPRESSION: 1. Endometrial echo complex appears normal in thickness. 2. Bilateral follicular ovarian cysts. Cytometry Technologist: CAMERON Transcribe Date/Time: Oct 30 2020 9:28P Dictated by : LORENZO FRANKS MD This examination was interpreted and the report reviewed and electronically signed by: LORENZO FRANKS MD on Oct 30 2020 9:32PM EST Normal [facility] US FEMALE PELVIS TRANSVAGon 07-22-2020 US FEMALE PELVIS TRANSVAG Final Report DATE OF EXAM: Jul 22 2020 5:14PM LDU 1060 - US FEMALE PELVIS TRANSVAG / PROCEDURE REASON: Menstrual spotting Physician Interpretation EXAMINATION: TRANSVAGINAL AND LIMITED TRANSABDOMINAL PELVIC ULTRASOUND CLINICAL HISTORY: Dysfunctional uterine bleeding TECHNIQUE: Sonography of the pelvis was performed by transvaginal and transabdominal (limited) techniques. Images were obtained and stored in a permanent archive. MQ: UFP_1 COMPARISON: 01/05/2018 RESULT: Uterus size: 7.3 x 4.2 x 5.2 cm -Orientation: Anteverted -Myometrium: Normal sonographic appearance. -Endometrial echo complex: 1.4 cm. In addition, the endometrium is mildly heterogeneous. -Cervix: normal Right ovary: 3.9 x 2.3 x 2.2 cm Normal sonographic appearance. Left ovary: 3.9 x 2.4 x 2.3 cm Normal sonographic appearance. Pelvis free fluid: None. Incidental note is made of a filling defect in the urinary bladder posteriorly that has a curvilinear shape. The appearance and location suggest a ureterocele. IMPRESSION: Although the endometrium is mildly thickened, this can be normal in an premenopausal female. Filling defect within the urinary bladder suggesting a ureterocele. If clinically indicated, urologic consultation could be considered. Cytometry Technologist: PSCB Transcribe Date/Time: Jul 23 2020 7:00A Dictated by : STEFFI STEIN MD This examination was interpreted and the report reviewed and electronically signed by: STEFFI STEIN MD on Jul 23 2020 7:05AM EST Normal [facility] Pap,Cyto Gynon 06-01-2020 Pap,Cyto Production Operations Engineer Test performed at [place] [address] NAME: IBAN RIDER REQUESTING: RENNY FAIRCHILD MD SPECIMEN: TP CX REFLEX TO HPV ASCUS/ANDI Relevant History: LMP: 05/28/2020 SPECIMEN ADEQUACY SATISFACTORY FOR EVALUATION. ENDOCERVICAL/TRANSFORM ATION ZONE COMPONENTS ABSENT. INTERPRETATION/RESULT NEGATIVE FOR INTRAEPITHELIAL LESION OR MALIGNANCY. Electronically signed: 06/23/2020 Screened by: VEGA THOMPSON ([facility]) Signed Out by: VEGA NEELY([facility]) The Pap test serves as a screening tool for early detection of cervical cancer. The Pap test does not represent a final diagnostic test for cervical cancer. Furthermore, the Pap test was not designed to screen for other malignancies (endometrial, ovarian cancer, etc....). False negatives and false positives have occurred. If clinically indicated, further patient evaluation is recommended. Printed on: June 23, 2020 Page 1 of 1 Normal [facility] Comment on above: Performed By: #### C YTOP #### [place] [address] MG Breast Tomosynthesis Diag nostic BIon 06-22-2017 MG Breast Tomosynthesis Diagnostic BI Patient Name: IBAN RIDER Mammography Exam Date/Time 06/22/2017 09:14:44 EDT Exam MG Breast Tomosynthesis BI Ordering Physician MD OCAMPO STEPHEN B Accession Number [id number] CPT4 Codes 82299 (MG Breast Tomosynthesis BI), 15490 (MG MAMMO 2D DIAG BILAT) Reason For Exam abnormal mammogram R92.8 Report PATIENT HISTORY: Patient is nulliparous. No known family history of cancer. Benign excisional biopsy of the left breast, June 2014. Took hormonal contraceptives for 2 years beginning at age 33. Patient has never smoked. Patient's BMI is 19.3. TIME SINCE LAST MAMMOGRAM: Last mammogram was performed 1 year and 1 month ago. REASON FOR EXAM: follow-up at short interval from prior study. PROCEDURE: MG BREAST TOMOSYNTHESIS BL: JUNE 22, 2017 - 2D/3D Procedure 3D Bilateral CC and MLO view(s) were taken. 2D Bilateral CC and MLO view(s) were taken. Prior study comparison: November 15, 2016, left breast diagnostic mammogram, performed at [facility]. May 19, 2016, bilateral diagnostic mammogram, performed at [facility]. February 04, 2014, bilateral MG mammogram digital diagnostic bilat performed at [facility]. The breast tissue is extremely dense, which may lower the sensitivity of mammography. Patient presents for follow-up for probably benign findings in the left breast. The initial evaluations were performed at an outside institution. Mammographically, there are no suspicious masses, calcifications, or areas of distortion noted. The patient went on for ultrasound evaluation. Sonographic images were obtained of the left breast. At the 3:00 position 2 cm from the nipple there is redemonstration of an oval well-circumscribed hypoechoic finding. On real-time scanning it appears almost anechoic. It measures 0.6 x 0.4 x 0.2 cm. On the outside previous examination this finding measures 0.7 x 0.2 x 0.8 cm. Some differences in measurement are felt to be related to technique. A finding at the 4:00 position 5 cm from the nipple has since resolved. IMPRESSION: Previously described finding at the 3:00 position is largely stable. An ultrasound follow-up is recommended at the time the patient's annual mammogram in approximately 12 months. Finding at the 4:00 position has resolved and requires no further evaluation. No new mammographic evidence of malignancy. Markings on images: BB's = Nipples; skin lesions Open poarch = Palpable Line = Scar US BREAST LIMITED LEFT: JUNE 22, 2017 - 2D digital mammography and tomosynthesis imaging were performed and reviewed with CAD. ASSESSMENT: Category 3 Probably benign (Overall) RECOMMENDATION: Follow-up diagnostic mammogram of both breasts in 1 year. Ultrasound of the left breast in 1 year. Final Signed Date and Time: 06/22/2017 11:28 am Signed by: MD TONNY, DEON Painter [facility] US Breast Limited Lefton US Breast Limited Left Patient Name: IBAN LOZANO Ultrasound Exam Date/Time 06/22/2017 09:42:37 EDT Exam US Breast Limited Left Ordering Physician MD OCAMPO STEPHEN B Accession Number [id number] CPT4 Codes 16883 () Reason For Exam abnormal mammogram Report PATIENT HISTORY: Patient is nulliparous. No known family history of cancer. Benign excisional biopsy of the left breast, June 2014. Took hormonal contraceptives for 2 years beginning at age 33. Patient has never smoked. Patient's BMI is 19.3. TIME SINCE LAST MAMMOGRAM: Last mammogram was performed 1 year and 1 month ago. REASON FOR EXAM: follow-up at short interval from prior study. PROCEDURE: MG BREAST TOMOSYNTHESIS BL: JUNE 22, 2017 - 2D/3D Procedure 3D Bilateral CC and MLO view(s) were taken. 2D Bilateral CC and MLO view(s) were taken. Prior study comparison: November 15, 2016, left breast diagnostic mammogram, performed at [facility]. May 19, 2016, bilateral diagnostic mammogram, performed at [facility]. February 04, 2014, bilateral MG mammogram digital diagnostic bilat performed at [facility]. The breast tissue is extremely dense, which may lower the sensitivity of mammography. Patient presents for follow-up for probably benign findings in the left breast. The initial evaluations were performed at an outside institution. Mammographically, there are no suspicious masses, calcifications, or areas of distortion noted. The patient went on for ultrasound evaluation. Sonographic images were obtained of the left breast. At the 3:00 position 2 cm from the nipple there is redemonstration of an oval well-circumscribed hypoechoic finding. On real-time scanning it appears almost anechoic. It measures 0.6 x 0.4 x 0.2 cm. On the outside previous examination this finding measures 0.7 x 0.2 x 0.8 cm. Some differences in measurement are felt to be related to technique. A finding at the 4:00 position 5 cm from the nipple has since resolved. IMPRESSION: Previously described finding at the 3:00 position is largely stable. An ultrasound follow-up is recommended at the time the patient's annual mammogram in approximately 12 months. Finding at the 4:00 position has resolved and requires no further evaluation. No new mammographic evidence of malignancy. Markings on images: BB's = Nipples; skin lesions Open poarch = Palpable Line = Scar US BREAST LIMITED LEFT: JUNE 22, 2017 - 2D digital mammography and tomosynthesis imaging were performed and reviewed with CAD. ASSESSMENT: Category 3 Probably benign (Overall) RECOMMENDATION: Follow-up diagnostic mammogram of both breasts in 1 year. Ultrasound of the left breast in 1 year. Final Signed Date and Time: 06/22/2017 11:28 am Signed by: MD TONNY, DEON Painter [facility] Vital Signs Date Time Vital Sign Value Performing Clinician Fernanda velazquezsekou 12-24-2024 08:53-0400 Body height 160.[address] Sarah Antony MD Work Phone: [facility] 12-24-2024 08:53-0400 Body mass index (BMI) [Ratio] 20.3 kg/m2 Dr. Sarah Antony MD Work Phone: [facility] 12-24-2024 08:53-0400 Body weight 52.[address] Sarah Antony MD Work Phone: [facility] 12-24-2024 08:53-0400 Diastolic blood pressure 65 mm[Hg] Dr. Sarah Antony MD Work Phone: [facility] 12-24-2024 08:53-0400 Heart rate 66 /min Dr. Sarah Antony MD Work Phone: [facility] 12-24-2024 08:53-0400 Respiratory rate 17 /min Dr. Sarah Antony MD Work Phone: [facility] 12-24-2024 08:53-0400 SaO2% (BldA) [Mass fraction] 99 % Dr. Sarah Antony MD Work Phone: [facility] 12-24-2024 08:53-0400 Systolic blood pressure 100 mm[Hg] Dr. Sarah Antony MD Work Phone: [facility] 08-12-2024 16:23-0500 Body height 160 cm Nitish Keith MD Work Phone: [facility] 08-12-2024 16:23-0500 Body mass index (BMI) [Ratio] 20.02 kg/m2 Nitish Keith MD Work Phone: [facility] 08-12-2024 16:23-0500 Body weight 51.26 kg Nitish Keith MD Work Phone: [facility] 08-12-2024 16:23-0500 Diastolic blood pressure 55 mm[Hg] Nitish Keith MD Work Phone: [facility] 08-12-2024 16:23-0500 Systolic blood pressure 94 mm[Hg] Nitish Keith MD Work Phone: [facility] 07-29-2024 08:13-0500 Body height 160 cm Renny Fairchild MD Work Phone: [facility] 07-29-2024 08:13-0500 Body mass index (BMI) [Ratio] 20.34 kg/m2 Renny Fairchild MD Work Phone: [facility] 07-29-2024 08:13-0500 Body weight 52.07 kg Renny Fairchild MD Work Phone: [facility] 07-29-2024 08:13-0500 Diastolic blood pressure 60 mm[Hg] Renny Fairchild MD Work Phone: [facility] 07-29-2024 08:13-0500 Heart rate 62 /min Renny Fairchild MD Work Phone: [facility] 07-29-2024 08:13-0500 Respiratory rate 16 /min Renny Fairchild MD Work Phone: [facility] 07-29-2024 08:13-0500 SaO2% (BldA) [Mass fraction] 98 % Renny Fairchild MD Work Phone: [facility] 07-29-2024 08:13-0500 Systolic blood pressure 96 mm[Hg] Renny Fairchild MD Work Phone: [facility] 05-27-2024 07:59-0400 Body height 160 cm Renny Fairchild MD Work Phone: [facility] 05-27-2024 07:59-0400 Body mass index (BMI) [Ratio] 20.23 kg/m2 Renny Fairchlid MD Work Phone: [facility] 05-27-2024 07:59-0400 Body weight 51.8 kg Renny Fairchild MD Work Phone: [facility] 05-27-2024 07:59-0400 Diastolic blood pressure 76 mm[Hg] Renny Fairchild MD Work Phone: [facility] 05-27-2024 07:59-0400 Heart rate 48 /min Renny Fairchild MD Work Phone: [facility] 05-27-2024 07:59-0400 Respiratory rate 16 /min Renny Fairchild MD Work Phone: [facility] 05-27-2024 07:59-0400 SaO2% (BldA) [Mass fraction] 99 % Renny Fairchild MD Work Phone: [facility] 05-27-2024 07:59-0400 Systolic blood pressure 118 mm[Hg] Renny Fairchild MD Work Phone: [facility] 02-10-2023 15:15-0400 Body height 160.[address] Sarah Antony Work Phone: [facility] 02-10-2023 15:15-0400 Body mass index (BMI) [Ratio] 19.7 kg/m2 Dr. Sarah Antony Work Phone: [facility] 02-10-2023 15:15-0400 Body temperature 97.5 [degF] Dr. Sarah Antony Work Phone: [facility] 02-10-2023 15:15-0400 Body weight 50.[address] Sarah Antony Work Phone: [facility] 02-10-2023 15:15-0400 Diastolic blood pressure 78 mm[Hg] Dr. Sarah Antony Work Phone: [facility] 02-10-2023 15:15-0400 Heart rate 66 /min Dr. Sarah Antony Work Phone: [facility] 02-10-2023 15:15-0400 Respiratory rate 18 /min Dr. Sarah Antony Work Phone: [facility] 02-10-2023 15:15-0400 Systolic blood pressure 117 mm[Hg] Dr. Sarah Antony Work Phone: [facility] 07-11-2022 08:11-0400 Body height 160 cm Renny Fairchild MD Work Phone: [facility] 07-11-2022 08:11-0400 Body temperature 96.8 [degF] Renny Fairchild MD Work Phone: [facility] 07-11-2022 08:11-0400 Body weight 49.9 kg Renny Fairchild MD Work Phone: [facility] 07-11-2022 08:11-0400 Diastolic blood pressure 62 mm[Hg] Renny Fairchild MD Work Phone: [facility] 07-11-2022 08:11-0400 Heart rate 56 /min Renny Fairchild MD Work Phone: [facility] 07-11-2022 08:11-0400 Respiratory rate 16 /min Renny Fairchild MD Work Phone: [facility] 07-11-2022 08:11-0400 SaO2% (BldA) [Mass fraction] 99 % Renny Fairchild MD Work Phone: [facility] 07-11-2022 08:11-0400 Systolic blood pressure 101 mm[Hg] Renny Fairchild MD Work Phone: [facility] 02-28-2022 09:00-0400 Body height 158.8 cm Renny Fairchild MD Work Phone: [facility] 02-28-2022 09:00-0400 Body temperature 98.4 [degF] Renny Fairchild MD Work Phone: [facility] 02-28-2022 09:00-0400 Body weight 49.9 kg Renny Fairchild MD Work Phone: [facility] 02-28-2022 09:00-0400 Diastolic blood pressure 64 mm[Hg] Renny Fairchild MD Work Phone: [facility] 02-28-2022 09:00-0400 Heart rate 51 /min Renny Fairchild MD Work Phone: [facility] 02-28-2022 09:00-0400 Respiratory rate 12 /min Renny Fairchild MD Work Phone: [facility] 02-28-2022 09:00-0400 SaO2% (BldA) [Mass fraction] 98 % Renny Fairchild MD Work Phone: [facility] 02-28-2022 09:00-0400 Systolic blood pressure 101 mm[Hg] Renny Fairchild MD Work Phone: [facility] Encounters Encounter Date Encounter Type Care Provider Facility Start: 06-03-2025 End: 06-03-[address] Sarah Antony MD Work Phone: -[facility] Start: 06-03-2025 End: 06-03-[address] Sarah Antony MD -[facility] Work Phone: Start: 06-03-2025 End: 06-03-2025 ambulatory Sarah Antony Facility:[facility] Start: 01-28-2025 End: 01-28-[address] Sarah Antony MD Work Phone: [facility] Work Phone: Start: 01-28-2025 End: 01-28-[address] Sarah Antony MD -[facility] Work Phone: Start: 01-28-2025 End: 01-28-2025 ambulatory Sarah Antony Facility:[facility] Start: 12-24-2024 End: 12-24-[address] Maria Elena Moon MD -[facility] Work Phone: Start: 12-24-2024 End: 12-24-2024 ambulatory Sarah Antony [place] [place] Start: 12-17-2024 End: 12-17-[address] Sarah Antony MD Work Phone: [facility] Work Phone: Start: 12-17-2024 End: 12-17-2024 Patient encounter procedure Sidney Patel CONTRACT OFFICER-C -[facility] Work Phone: Start: 12-17-2024 End: 12-17-2024 ambulatory Sarah Antony Facility:[facility] Start: 10-08-2024 End: 10-08-2024 Telephone encounter Nitish Keith MD Work Phone: [facility]ne[facility] Comment on above: Results Start: 10-04-2024 Preprocedural examin ation done Nitish Keith MD Work Phone: [facility] Work Phone: Start: 10-04-2024 End: 10-04-2024 ambulatory NITISH KEITH Facility:[facility] Start: 08-13-2024 End: 08-13-2024 Patient encounter procedure [facility] Provider [facility] in Department Start: 08-13-2024 End: 08-13-2024 Telephone encounter Nitish Keith MD Work Phone: [facility]etric[facility] Gynecology Comment on above: Preparations For Augusto mau (Production Operations Engineer surgery) Start: 08-12-2024 End: 08-12-2024 Patient encounter procedure Nitish Keith MD Work Phone: [facility] Gynecology Comment on above: DUB (dysfunctional u terine bleeding) (Primary Dx); Endometrial polyp Start: 08-12-2024 End: 08-12-2024 ambulatory NITISH KEITH Facility:[facility] Start: 07-29-2024 End: 07-29-2024 ambulatory SARAH ANTONY Facility:[facility] Start: 07-29-2024 End: 07-29-2024 Patient encounter procedure Renny Fairchild MD Work Phone: [facility] Obstetrics & Gynecology Comment on above: Encounter for annual routine gynecological examination (Primary Dx); Abnormal uterine bleeding due to endometrial polyp; Encounter for Papanicolaou smear for cervical cancer screening Start: 07-22-2024 End: 07-22-2024 ambulatory Sarah Antony Facility:[facility] Start: 07-15-2024 ambulatory SARAH ANTONY Facilit y:[facility] Start: 07-15-2024 End: 07-15-2024 Subsequent hospital visit by physician [facility] Comment on above: Menometrorrhagia [N9 2.1] Start: 07-01-2024 End: 07-01-2024 Orders Only Renny Fairchild MD Work Phone: [facility] Obstetrics & Gynecology Comment on above: Endometrial thickeni ng on ultrasound (Primary Dx) Start: 06-13-2024 End: 06-13-2024 Telephone encounter Renny Fairchild MD Work Phone: [facility] Gynecology Comment on above: Results Start: 05-27-2024 End: 05-27-2024 Patient encounter procedure Renny Fairchild MD Work Phone: [facility] Obstetrics & Gynecology Comment on above: Menometrorrhagia (Pr imary Dx) Start: 05-27-2024 End: 05-27-2024 ambulatory SARAH ANTONY Facility:[facility] Start: 01-23-2024 Telephone encounter Renny Fairchild MD Work Phone: [facility]etric[facility] & Gynecology Comment on above: Results; Care Coord nator - Other Start: 01-23-2024 End: 01-23-2024 ambulatory [facility] Work Phone: Start: 01-23-2024 End: 01-23-2024 Patient encounter procedure [facility] Start: 10-10-2023 End: 10-10-2023 ambulatory [facility] Work Phone: Start: 10-10-2023 End: 10-10-2023 Patient encounter procedure [facility] Work Phone: Start: 07-25-2023 End: 07-25-2023 ambulatory [facility] Work Phone: Start: 07-25-2023 End: 07-25-2023 Patient encounter procedure [facility] Start: 02-10-2023 End: 02-10-[address] Sarah Antony Work Phone: [facility] Work Phone: Start: 02-08-2023 End: 02-08-[address] Sarah Antony Work Phone: [facility] Work Phone: Start: 02-08-2023 End: 02-08-[address] Sarah Antony Work Phone: [facility] Work Phone: Start: 02-07-2023 End: 02-07-[address] Sarah Antony Work Phone: [facility] Work Phone: Start: 02-07-2023 End: 02-07-[address] Sarah Antony Work Phone: [facility] Work Phone: Start: 01-12-2023 End: 01-12-2023 ambulatory [facility] Work Phone: Start: 01-12-2023 End: 01-12-2023 Patient encounter procedure [facility] Start: 01-11-2023 Telephone encounter Renny Fairchild MD Work Phone: [facility] & Gynecology Comment on above: Orders Start: 01-09-2023 Telephone encounter Renny Fairchild MD Work Phone: [facility] Obstetrics & Gynecology Comment on above: Patient Question Start: 01-04-2023 Telephone encounter Renny Fairchild MD Work Phone: [facility] Ob[facility]s & Gynecology Comment on above: Orders Start: 07-27-2022 End: 07-27-2022 ambulatory [facility] Work Phone: Start: 07-27-2022 End: 07-27-2022 Patient encounter procedure [facility] Start: 07-19-2022 End: 07-19-2022 ambulatory [facility] Work Phone: Start: 07-19-2022 End: 07-19-2022 Patient encounter procedure [facility] Start: 07-11-2022 End: 07-11-2022 Patient encounter procedure Renny Fairchild MD Work Phone: [facility] Obstetrics & Gynecology Comment on above: Encounter for annual routine gynecological examination (Primary Dx); Encounter for Papanicolaou smear for cervical cancer screening; Fibrocystic breast changes, bilateral Start: 05-05-2022 End: 05-05-2022 Patient encounter procedure [facility] Start: 03-23-2022 End: 03-23-2022 Patient encounter procedure [facility] Start: 02-28-2022 End: 02-28-2022 Patient encounter procedure Renny Fairchild MD Work Phone: [facility] Obstetrics & Gynecology Comment on above: Fibrocystic breast c hanges, bilateral (Primary Dx) Start: 01-05-2022 End: 01-05-2022 Patient encounter procedure [facility] Start: 10-07-2021 End: 10-07-2021 Patient encounter procedure [facility] Start: 06-22-2017 Ambulatory Leo Ocampo [facility] Procedures Date Procedure Procedure Detail Performing Clinician Start: 06-03-2025 Screening mammography Radha Antony MD Work Phone: Start: 12-17-[address] Sarah Antony MD Work Phone: Start: 10-10-2023 Ultrasonography of breast Start: 10-10-2023 Mammography Start: 02-08-[address] Sarah Antony Work Phone: Start: 02-07-2023 Bilateral mammography Radha Antony Work Phone: Start: 07-27-2022 US scan of thyroid Start: 05-05-2022 Ultrasonography of breast Start: 05-05-2022 Bilateral mammography Start: 03-23-2022 US urinary tract Start: 10-07-2021 Ultrasonography of breast Start: 10-07-2021 Bilateral mammography Plan of Treatment Date Care Activity Detail Author Start: 07-29-2029 Screening for malignant neoplasm of cervix Cervical Cancer Screening [facility] Start: 06-26-2028 Screening for malignant neoplasm of cervix [facility] Start: 07-11-2027 HPV TESTING HPV TESTING [facility] Start: 07-11-2027 PAP TESTING PAP TESTING [facility] Start: 11-11-2026 Urine microalbumin profile DTaP,Tdap,Td Vaccine (2 - Td or Tdap) [facility] Start: 07-05-2026 PAP TESTING PAP TESTING [facility] Start: 10-28-2024 End: 10-28-2024 Patient encounter procedure 10/28/2024 2:00 PM EST Office Visit [facility] Obstetrics and Gynecology [address] [place] [phone] Nitish Keith MD [address] [place], [place] [phone] Post op (sx 10/04) [facility] Gynecology Comment on above: Post op (sx 10/04) Start: 10-16-2024 End: 10-16-2024 Patient encounter procedure 10/16/2024 2:45 PM EST Office Visit [facility] Obstetrics and Gynecology [address] [place] [phone] Nitish Keith MD [address] [place] [address] surgery consult [facility]necology Comment on above: surgery consult Start: 10-04-2024 End: 10-04-2024 Admission to same day surgery center 10/04/2024 1:00 PM EST - 10/04/2024 2:00 PM EST Surgery [facility] [address] [place] [id number] Nitish Keith MD [address] [place], [place] [phone] HYSTEROSCOPY SURGICAL W/SAMPLING BIOPSY OF ENDOMETRIUM &/OR POLYPECTOMY W/ OR W/O D&C (TRUCLEAR) [facility] Comment on above: HYSTEROSCOPY SURGICA L W/SAMPLING BIOPSY OF ENDOMETRIUM &/OR POLYPECTOMY W/ OR W/O D&C (TRUCLEAR) Start: 10-04-2024 End: 10-04-2024 Hysteroscopy bx endometrium&/polypc w/wo d&c HYSTEROSCOPY SURGICAL W/SAMPLING BIOPSY OF ENDOMETRIUM &/OR POLYPECTOMY W/ OR W/O D&C (TRUCLEAR) Uterine polyp 10/04/2024 1:00 PM EST [facility] Start: 10-04-2024 Subsequent hospital visit by physician 10/04/2024 1:00 PM EST Hospital Encounter [facility] [address] [place] [address] Nitish Keith MD [address] [place], [place] [phone] Uterine polyp [N84.0] [facility] Comment on above: Uterine polyp [N84.0 ] Start: 07-29-2024 End: 07-29-2024 Patient encounter procedure 07/29/2024 8:00 AM EST Office Visit [facility] Obstetrics & Gynecology [address] [place] [address] [phone] Renny Fairchild MD [address] [place] [address] [phone] ANNUAL [facility] Obstetrics & Gynecology Comment on above: ANNUAL Start: 07-15-2024 End: 07-15-2024 Patient encounter procedure 07/15/2024 8:00 AM EDT Office Visit [facility] Obstetrics & Gynecology [address] [place] [address] [phone] Renny Fairchild MD [address] [place], [place] [phone] ANNUAL [facility] Obstetrics & Gynecology Comment on above: ANNUAL Start: 05-19-2024 Covid-19 Vaccine ( season) Covid-19 Vaccine ( season) [facility] Start: 05-19-2024 Influenza vaccination [facility] Start: 01-01-2024 HPV TESTING HPV TESTING [facility] Start: 09-18-2023 Behavioral Health Screening Behavioral Health Screening [facility] Start: 05-19-2023 Covid-19 Vaccine ( season) Covid-19 Vaccine () [facility] Start: 05-19-2023 Influenza vaccination INFLUENZA (Sea son Ended) [facility] Start: 09-18-2022 [facility] Start: 05-19-2022 Influenza vaccination INFLUENZA (#1) [facility] Start: 09-18-2021 [facility] Start: 2020 Mammography MAMMOGRAM [facility] Start: 2020 Screening for malignant neoplasm of breast Mammogram Screening [facility] Start: 1999 Hepatitis B Vaccine (1 of 3 - 19+ 3-dose series) Hepatitis B Vaccine (1 of 3 - 19+ 3-dose series) [facility] Start: 1999 Urine microalbumin profile DTAP,TDAP,TD (1 - Tdap) [facility] Start: 1998 ANNUAL PCP TEAM CHRONIC DISEASE VISIT ANNUAL PCP TEAM CHRONIC DISEASE VISIT [facility] Start: 1998 Anxiety Screening Anxiety Screening [facility] Start: 1998 Depression Screening Depression Scre ening [facility] Start: 1998 HEPATITIS C SCREENING HEPATITIS C [facility] Start: 1998 Hepatitis C screening Hepatitis C [facility] Start: 1998 HIV SCREENING HIV SCREENING [facility] Start: 1998 HIV screening HIV Screening [facility] Start: 1992 Adult depression screening assessment DEPRESSION SCREENING [facility] Start: 1980 HEPATITIS B (1 of 3 - 3-dose series) HEPATITIS B (1 of 3 - 3-dose series) [facility] End: 02-03-2024 SALINA DIAGNOSTIC BILATERAL [facility] Radiology Routine Breast screening 1 Occurrences starting 01/09/2023 until 02/03/2024 [facility] Work Phone: Comment on above: 1 Occurrences starti ng 01/09/2023 until 02/03/2024 PAP FLUID CERVICAL SCREENING PAP FLUID CERVICAL SCREENING Lab Routine Encounter for Papanicolaou smear for cervical cancer screening Ordered: 07/11/2022 [facility] Work Phone: Comment on above: Ordered: 07/11/2022 PAP TEST PAP TEST Lab Rou nasreen Encounter for Papanicolaou smear for cervical cancer screening 07/29/2024 8:51 AM EST [facility] Work Phone: End: 06-26-2025 US Pelvis transvaginal US FEMALE PELVIS TRANSVAG Radiology Routine Menometrorrhagia 1 Occurrences starting 05/27/2024 until 06/26/2025 [facility] Work Phone: Comment on above: 1 Occurrences starti ng 05/27/2024 until 06/26/2025 End: 07-31-2025 US Pelvis transvaginal US FEMALE PELVIS TRANSVAG Radiology Routine Endometrial thickening on ultrasound 1 Occurrences starting 07/01/2024 until 07/31/2025 [facility] Work Phone: Comment on above: 1 Occurrences starti ng 07/01/2024 until 07/31/2025 US Pelvis transvaginal US FEMALE PELVIS TRANSVAG Radiology Routine Menometrorrhagia 07/15/2024 5:40 PM EDT [facility] Work Phone: Immunizations Immunization Date Immunization Notes Care Provider Fa cili 06-30-2023 influenza virus vacc ine, unspecified formulation Renny Fairchild MD Work Phone: [facility] 07-19-2022 influenza virus vacc ine, unspecified formulation Renny Fairchild MD Work Phone: [facility] Payers Date Payer Category Payer Self-pay [id number] 2017 Unknown 2017 Unknown DAVID DUNBAR BASHIR [id number] 2017-Present [phone] [address] [place] [address] Indemnity [id number] 2017 Unknown [id number] Unknown [id number] Unknown [id number] Unknown [id number] Unknown [id number] Unknown [id number] Unknown [id number] Social History Date Type Detail Facility [facility] Work Phone: Start: 1980 Sex Assigned At Female W [facility] Start: 01-28-2013 End: 12-24-2024 Tobacco smoking status NHIS Never smoked tobacco [facility] Start: 01-28-2013 Tobacco use and exposure Smokeless tobacco non-user [facility] Start: 02-28-2022 End: 10-04-2024 Alcohol intake Current non-drinker of alcohol (finding) [facility] Start: 1980 Sex Assigned At Not on file C [facility] Start: 02-18-2022 End: 07-11-2022 Exposure to SARS-CoV-2 (event) Not sure [facility] Start: 06-26-2023 End: 10-04-2024 History of Social function [facility] Start: 06-26-2023 End: 10-04-2024 Tobacco use panel [facility] National Score (1-100), lower number is lower risk 70 [facility] Work Phone: Start: 12-19-2024 Sex Female (finding) [facility] Clinical Notes 05-20-2014 to 12-24-2024 Note Date & Type Note Facility 12-24-2024 Evaluation note Diagnosis Onset Date Resolution Breast lump acute December 24 8:34am Breast pain, left acute December 242024 8:34am [facility] Work Phone: 1(174) 392-834104-01-2025 Radiology Diagnostic study note [facility] Imaging Services [address] [place] [address] Breast Limited Unilateral MR#: [id number] Acct: [id number] Name: IBAN RIDER Rep #: [id number] 5 : 1980 F 44 From: Mihai Rae MD PCP: Dr. Sarah Antony MD Status: RE G CLI Study:Breast Limited Unilateral Date of Exam: 12/17/24 Exam# [id number] Ordering Dr: Sidney Patel NP CONTRACT OFFICER-C PROCEDURE: BREAST LIMITED UNILATERAL 12/17/2024 REASON FOR EXAM: BREAST PAIN TECHNIQUE: Targeted left breast ultrasound. COMPARISON: Comparison is made with prior mammogram dated May 28, 2024. FINDINGS: Left breast ultrasound was targeted to the lower outer quadrant of the left breast.. There is a 9 mm x 9 mm x 7 mm cyst at the 4 o'clock position of the breast at 3 cm from the nipple. US/Breast Limited Unilateral IMPRESSION: Impression: 9 mm x 9 mm x 7 mm cyst at the 4 o'clock position of the left breastat 3 cm from the nipple. Birads: BI-RADS 2: BENIGN. RECOMMEND ANNUAL MAMMOGRAPHIC SCREENING. Reading Location: [id number] CC: Sidney RAMOS NP-C Amanda; Dr. Sarah Antony MD ~ Cytometry Technologist: Signed [facility]01-21-2025 Telephone encounter Note* Telephone Encounter - Alirio Conteh RN - 10/08/2024 12:23 PM EST Aware of Dr Keith's response. Alirio Conteh RN [facility]01-21-2025 Miscellaneous Notes* Telephone Encounter - Alirio Conteh RN - 10/08/2024 12:23 PM EST Aware of Dr Keith's response. Alirio Conteh RN * Telephone Encounter - Nitish Keith MD - 10/08/2024 11:54 AM EST Normal activity whenever she wants * Telephone Encounter - Alirio Conteh RN - 10/08/2024 9:20 AM EST Aware of results. Asking when she can get back to running? Please advise. Thank you, Alirio Conteh RN * Telephone Encounter - Nitish Keith MD - 10/08/2024 9:13 AM EST Please let her know her pathology report is benign [facility] Telephone encounter Note * Telephone Encounter - Nitish Keith MD - 10/08/2024 11:54 AM EST Normal activity whenever she wants [facility]01-21-2025 Telephone encounter Note* Telephone Encounter - Alirio Conteh RN - 10/08/2024 9:20 AM EST Aware of results. Asking when she can get back to running? Please advise. Thank you, Alirio Conteh RN [facility]01-21-2025 Telephone encounter Note* Telephone Encounter - Nitish Keith MD - 10/08/2024 9:13 AM EST Please let her know her pathology report is benign [facility]01-17-2025 NoteHNO ID: [id number] Author: NICOLE ESPARZA RN Service: Nursing Author Type: Registered Nurse Type: Nursing Progress Note Filed: 10/04/2024 15:04 Note Text: Other: Patient dressed self [facility]01-17-2025 NoteHNO ID: [id number] Author: CLIFF BRANDON APRN.CRNA Service: Anesthesiology Author Type: Nurse Operations Vocational Instructor Type: Anesthesia Procedure Notes Filed: 10/04/2024 13:25 Note Text: ANESTHESIOLOGY PROCEDURE NOTE Airway General Information Procedure Start Time/Medication Administration: 10/04/2024 1:08 PM Procedure End Time: 10/04/2024 1:10 PM Patient location during procedure: OR Timeout Performed Pre-procedure: timeout performed Consent Obtained: Yes Patient identity confirmed: arm band Staffing FINANCIAL REPORTING ADVISOR: Cliff Brandon APRN.FINANCIAL REPORTING ADVISOR Performed by: HARRISON Indications and Patient Condition Indications for airway management: anesthesia Preoxygenated: yes anesthesia circuit Patient position: sniffing Method: asleep Final Airway Details Final airway type: supraglottic airway Number of attempts at approach: 1 Final Supraglottic Airway: i-gel Size 3 Seal Adequate: yes Airway not difficult SIGNATURE: Cliff Brandon APRN.FINANCIAL REPORTING ADVISOR PATIENT NAME: Iban Rider DATE: October 04, 2024 TIME: 1:25 PM [id number] Tele[facility] encounter Note* Telephone Encounter - Maxim Dominguez - 08/13/2024 10:41 AM EST Date: 08/13/24 Location: [facility] Surgeon: Nuno Surgery: D&C hysteroscopy polypectomy Surgery Date: 10/04/24 @ 2:00, pre-testing day of Consents signed: yes Surgery info: MyChart Clearance: not needed [facility]11-26-2024 Miscellaneous Notes* Telephone Encounter - Maxim Dominguez - 08/13/2024 10:41 AM EST Date: 08/13/24 Location: [facility] Surgeon: Nuno Surgery: D&C hysteroscopy polypectomy Surgery Date: 10/04/24 @ 2:00, pre-testing day of Consents signed: yes Surgery info: MyChart Clearance: not needed [facility]24 NoteHNO ID: [id number] Author: NITISH KEITH MD Service: ? Author Type: Physician Type: Progress Notes Filed: 08/12/2024 17:13 Note Text: Iban Rider is a 44 year old, 0 Para 0 who presents complaining of menorrhagia occurring monthly , metrorrhagia occurring midcycle lasting for 5 days.. Cycles are regular occurring every 28 days lasting for 7 days. Symptoms have been present for the past 2 years with continuous symptoms. Previous treatments include: None. Associated symptoms include dysmenhorrea. HISTORY PAST MEDICAL HISTORY Diagnosis Date Anxiety Breast mass 05/2015 right Elevated DHEA Hyperprolactinemia (HCC) Hypothyroidism Left breast mass 08/04/2015 Left breast mass 06/2016 cysts Vitamin D deficiency 02/2014 PAST SURGICAL HISTORY Procedure Laterality Date BREAST BIOPSY INCISIONAL LEFT 05/29/2014 PAST SURGICAL HISTORY OF 2002 dental surgery Current Outpatient Medications Medication Sig levothyroxine (SYNTHROID) 88 mcg tablet Take 1 tablet by mouth every afternoon. triamcinolone acetonide topical 0.5 % ointment cetirizine (ZYRTEC) 5 mg tablet Take 5 mg by mouth once daily. Cholecalciferol, Vitamin D3, 2,000 unit cap Take 1 capsule by mouth. MULTIVITAMIN/IRON/FOLIC ACID (CENTRUM ULTRA WOMEN'S ORAL) Take by mouth once daily. CALCIUM ORAL Take by mouth. VITAFOL ULTRA 29 mg iron- 1 mg-200 mg cap Take 1 capsule by mouth once daily. (Patient not taking: Reported on 05/27/2024) naproxen (NAPROSYN) 375 mg tablet Take 375 mg by mouth as needed. (Patient not taking: Reported on 05/27/2024) cyclobenzaprine (FLEXERIL) 10 mg tablet Take 10 mg by mouth once daily. (Patient not taking: Reported on 02/28/2022) VIT A/VIT C/VIT E/ZINC/COPPER (PRESERVISION AREDS ORAL) Take by mouth as needed. (Patient not taking: Reported on 05/27/2024) Cholecalciferol, Vitamin D3, 2,000 unit cap Take by mouth. (Patient not taking: Reported on 08/12/2024) magnesium sulfate 100 mg cap Take by mouth. (Patient not taking: Reported on 05/27/2024) LORazepam (ATIVAN) 0.5 mg tab Take by mouth three times daily as needed. (Patient not taking: Reported on 05/27/2024) levothyroxine (SYNTHROID) 75 mcg tablet Take 75 mcg by mouth once daily. (Patient not taking: Reported on 07/29/2024) No current facility-administered medications for this visit. ALLERGIES Allergen Reactions Amoxicillin Rash Social History Tobacco Use Smoking status: Never Smokeless tobacco: Never Vaping Use Vaping status: Never Used Substance Use Topics Alcohol use: No Drug use: No FAMILY HISTORY Problem Relation Age of Onset Thyroid Paternal Aunt Ischemic Heart Disease Father Hypertension Father Lipids Father Cancer Paternal Grandfather prostate Cancer Paternal Uncle skin Breast Cancer Maternal Grandmother Breast Cancer Sister Past Production Operations Engineer History: Ultrasound, endometrial polyp PHYSICAL EXAM BP 94/55 Ht 160 cm (5' 3) Wt 51.3 kg (113 lb) LMP 08/02/2024 (Approximate) BMI 20.02 kg/m? General: Well developed, well nourished female in no distress. Skin: normal color Abdomen Exam: Normal abdominal exam, Abdomen soft, non-tender. Bowel sounds normal. No masses, organomegaly ULTRASOUND: Uterus: -Size: 7.3 x 4.4 x 4.4 cm -Orientation: Retroverted -Endometrial echo complex: Evaluation of the endometrium was adequate. No endometrial abnormality. The endometrial echo complex measured 0.9, a 2.5 cm nodular component suggested on the last image with vessel for which polypoid structure cannot be excluded. -Cervix: Unremarkable. -Adenomyosis assessment: There are no sonographic findings of adenomyosis. -Fibroids: There are no fibroids. Right Ovary: 4.5 x 3.2 x 2.1 cm - Normal sonographic appearance with physiologic follicles. Doppler imaging showed normal arterial and venous flow throughout the ovary. Left Ovary: 3.7 x 2.0 x 1.4 cm - Normal sonographic appearance with physiologic follicles. Doppler imaging showed normal arterial and venous flow throughout the ovary. Free Fluid: Small free fluid is likely physiologic. Extremities: Normal range of motion and no edema. ASSESSMENT/PLAN: 1. DUB (dysfunctional uterine bleeding) - ICD9: 626.8, ICD10: N93.8 (primary diagnosis) 2. Endometrial polyp - ICD9: 621.0, ICD10: N84.0 - She was consented for a DANDC, Hysteroscopy, Polypectomy Nitish Keith, [facility]11-25-2024 History of Present illness Narrative* Nitish Keith MD - 08/12/2024 5:05 PM EST Iban Rider is a 44 year old, 0 Para 0 who presents complaining of menorrhagia occurring monthly , metrorrhagia occurring midcycle lasting for 5 days.. Cycles are regular occurring every 28 days lasting for 7 days. Symptoms have been present for the past 2 years with continuous symptoms. Previous treatments include: None. Associated symptoms include dysmenhorrea. HISTORY PAST MEDICAL HISTORY Diagnosis Date Anxiety Breast mass 05/2015 right Elevated DHEA Hyperprolactinemia (HCC) Hypothyroidism Left breast mass 08/04/2015 Left breast mass 06/2016 cysts Vitamin D deficiency 02/2014 PAST SURGICAL HISTORY Procedure Laterality Date BREAST BIOPSY INCISIONAL LEFT 05/29/2014 PAST SURGICAL HISTORY OF 2002 dental surgery Current Outpatient Medications Medication Sig levothyroxine (SYNTHROID) 88 mcg tablet Take 1 tablet by mouth every afternoon. triamcinolone acetonide topical 0.5 % ointment cetirizine (ZYRTEC) 5 mg tablet Take 5 mg by mouth once daily. Cholecalciferol, Vitamin D3, 2,000 unit cap Take 1 capsule by mouth. MULTIVITAMIN/IRON/FOLIC ACID (CENTRUM ULTRA WOMEN'S ORAL) Take by mouth once daily. CALCIUM ORAL Take by mouth. VITAFOL ULTRA 29 mg iron- 1 mg-200 mg cap Take 1 capsule by mouth once daily. (Patient not taking: Reported on 05/27/2024) naproxen (NAPROSYN) 375 mg tablet Take 375 mg by mouth as needed. (Patient not taking: Reported on 05/27/2024) cyclobenzaprine (FLEXERIL) 10 mg tablet Take 10 mg by mouth once daily. (Patient not taking: Reported on 02/28/2022) VIT A/VIT C/VIT E/ZINC/COPPER (PRESERVISION AREDS ORAL) Take by mouth as needed. (Patient not taking: Reported on 05/27/2024) Cholecalciferol, Vitamin D3, 2,000 unit cap Take by mouth. (Patient not taking: Reported on 08/12/2024) magnesium sulfate 100 mg cap Take by mouth. (Patient not taking: Reported on 05/27/2024) LORazepam (ATIVAN) 0.5 mg tab Take by mouth three times daily as needed. (Patient not taking: Reported on 05/27/2024) levothyroxine (SYNTHROID) 75 mcg tablet Take 75 mcg by mouth once daily. (Patient not taking: Reported on 07/29/2024) No current facility-administered medications for this visit. 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 Skin: normal color Abdomen Exam: Normal abdominal exam, Abdomen soft, non-tender. Bowel sounds normal. No masses, organomegaly ULTRASOUND: Uterus: -Size: 7.3 x 4.4 x 4.4 cm -Orientation: Retroverted -Endometrial echo complex: Evaluation of the endometrium was adequate. No endometrial abnormality. The endometrial echo complex measured 0.9, a 2.5 cm nodular component suggested on the last image with vessel for which polypoid structure cannot be excluded. -Cervix: Unremarkable. -Adenomyosis assessment: There are no sonographic findings of adenomyosis. -Fibroids: There are no fibroids. Right Ovary: 4.5 x 3.2 x 2.1 cm - Normal sonographic appearance with physiologic follicles. Doppler imaging showed normal arterial and venous flow throughout the ovary. Left Ovary: 3.7 x 2.0 x 1.4 cm - Normal sonographic appearance with physiologic follicles. Doppler imaging showed normal arterial and venous flow throughout the ovary. Free Fluid: Small free fluid is likely physiologic. Extremities: Normal range of motion and no edema. ASSESSMENT/PLAN: 1. DUB (dysfunctional uterine bleeding) - ICD9: 626.8, ICD10: N93.8 (primary diagnosis) 2. Endometrial polyp - ICD9: 621.0, ICD10: N84.0 - She was consented for a D&C, Hysteroscopy, Polypectomy Nitish Keith MD [facility] History and physical note * Pap, Renny Schreiber MD - 07/29/2024 8:41 AM EST Iban Rider is a 44 year old female who presents for annual exam. Still has some irregular bleeding. Sonogram shows possible endometrial polyp. This is explained to the patient. She is referred to Dr. Nitish Keith for possible hysteroscopy, D&C. Recent mammogram normal. ALLERGIES Allergen Reactions Amoxicillin Rash Current Outpatient Medications Medication Sig levothyroxine (SYNTHROID) 88 mcg tablet Take 1 tablet by mouth every afternoon. triamcinolone acetonide topical 0.5 % ointment MULTIVITAMIN/IRON/FOLIC ACID (CENTRUM ULTRA WOMEN'S ORAL) Take by mouth once daily. CALCIUM ORAL Take by mouth. cetirizine (ZYRTEC) 5 mg tablet Take 5 mg by mouth once daily. VITAFOL ULTRA 29 mg iron- 1 mg-200 mg cap Take 1 capsule by mouth once daily. (Patient not taking: Reported on 05/27/2024) Cholecalciferol, Vitamin D3, 2,000 unit cap Take 1 capsule by mouth. (Patient not taking: Reported on 05/27/2024) naproxen (NAPROSYN) 375 mg tablet Take 375 mg by mouth as needed. (Patient not taking: Reported on 05/27/2024) cyclobenzaprine (FLEXERIL) 10 mg tablet Take 10 mg by mouth once daily. (Patient not taking: Reported on 02/28/2022) VIT A/VIT C/VIT E/ZINC/COPPER (PRESERVISION AREDS ORAL) Take by mouth as needed. (Patient not taking: Reported on 05/27/2024) Cholecalciferol, Vitamin D3, 2,000 unit cap Take by mouth. magnesium sulfate 100 mg cap Take by mouth. (Patient not taking: Reported on 05/27/2024) LORazepam (ATIVAN) 0.5 mg tab Take by mouth three times daily as needed. (Patient not taking: Reported on 05/27/2024) levothyroxine (SYNTHROID) 75 mcg tablet Take 75 mcg by mouth once daily. (Patient not taking: Reported on 07/29/2024) No current facility-administered medications for this visit. Subjective OB History T0 L0 SAB0 IAB0 Ectopic0 Multiple0 Live Births0 Past Gynecological History: see [facility] PAST MEDICAL HISTORY Diagnosis Date Anxiety Breast [...] Never Smokeless tobacco: Never Vaping Use Vaping status: Never Used Substance Use Topics Alcohol use: No Drug use: No FAMILY HISTORY Problem Relation Age of Onset Thyroid Paternal Aunt Ischemic Heart Disease Father Hypertension Father Lipids Father Cancer Paternal Grandfather prostate Cancer Paternal Uncle skin Breast Cancer Maternal Grandmother Breast Cancer Sister Review of Symptoms negative Objective BP 96/60 Pulse 62 Resp 16 Ht 5' 3 (1.60m) Wt 114 lb 12.8 oz (52.1kg) SpO2 98% LMP 07/07/2024 BMI 20.34 kg/(m^2). Physical Exam - restricted to breast and pelvic exam BREAST: without masses CLOTH FRAMER: Vulva - normal, Vagina - normal - cervix nulliparous, Pap done, Uterus - midplane, adnexa neg ASSESSMENT/PLAN: 1. Encounter for annual routine gynecological examination - ICD9: V72.31, ICD10: Z01.419 (primary diagnosis) - Completed pelvic and breast exam - Encouraged monthly BSE - Follow up for annual exam in one year. 2. Abnormal uterine bleeding due to endometrial polyp - ICD9: 626.6, 621.0, ICD10: N93.9, N84.0 -- Refer to Dr. Keith 3. Encounter for Papanicolaou smear for cervical cancer screening - ICD9: V76.2, ICD10: Z12.4 - Completed pelvic and breast exam - Encouraged monthly BSE - Follow up for annual exam in one year. Renny Fairchild MD [facility]11-11-2024 History and physical note* Renny Fairchild MD - 07/29/2024 8:41 AM EST Iban Rider is a 44 year old female who presents for annual exam. Still has some irregular bleeding. Sonogram shows possible endometrial polyp. This is explained to the patient. She is referred to Dr. Nitish Keith for possible hysteroscopy, D&C. Recent mammogram normal. ALLERGIES Allergen Reactions Amoxicillin Rash Current Outpatient Medications Medication Sig levothyroxine (SYNTHROID) 88 mcg tablet Take 1 tablet by mouth every afternoon. triamcinolone acetonide topical 0.5 % ointment MULTIVITAMIN/IRON/FOLIC ACID (CENTRUM ULTRA WOMEN'S ORAL) Take by mouth once daily. CALCIUM ORAL Take by mouth. cetirizine (ZYRTEC) 5 mg tablet Take 5 mg by mouth once daily. VITAFOL ULTRA 29 mg iron- 1 mg-200 mg cap Take 1 capsule by mouth once daily. (Patient not taking: Reported on 05/27/2024) Cholecalciferol, Vitamin D3, 2,000 unit cap Take 1 capsule by mouth. (Patient not taking: Reported on 05/27/2024) naproxen (NAPROSYN) 375 mg tablet Take 375 mg by mouth as needed. (Patient not taking: Reported on 05/27/2024) cyclobenzaprine (FLEXERIL) 10 mg tablet Take 10 mg by mouth once daily. (Patient not taking: Reported on 02/28/2022) VIT A/VIT C/VIT E/ZINC/COPPER (PRESERVISION AREDS ORAL) Take by mouth as needed. (Patient not taking: Reported on 05/27/2024) Cholecalciferol, Vitamin D3, 2,000 unit cap Take by mouth. magnesium sulfate 100 mg cap Take by mouth. (Patient not taking: Reported on 05/27/2024) LORazepam (ATIVAN) 0.5 mg tab Take by mouth three times daily as needed. (Patient not taking: Reported on 05/27/2024) levothyroxine (SYNTHROID) 75 mcg tablet Take 75 mcg by mouth once daily. (Patient not taking: Reported on 07/29/2024) No current facility-administered medications for this visit. Subjective OB History T0 L0 SAB0 IAB0 Ectopic0 Multiple0 Live Births0 Past Gynecological History: see [place] PAST MEDICAL HISTORY Diagnosis Date Anxiety Breast [...] Never Smokeless tobacco: Never Vaping Use Vaping status: Never Used Substance Use Topics Alcohol use: No Drug use: No FAMILY HISTORY Problem Relation Age of Onset Thyroid Paternal Aunt Ischemic Heart Disease Father Hypertension Father Lipids Father Cancer Paternal Grandfather prostate Cancer Paternal Uncle skin Breast Cancer Maternal Grandmother Breast Cancer Sister Review of Symptoms negative Objective BP 96/60 Pulse 62 Resp 16 Ht 5' 3 (1.60m) Wt 114 lb 12.8 oz (52.1kg) SpO2 98% LMP 07/07/2024 BMI 20.34 kg/(m^2). Physical Exam - restricted to breast and pelvic exam BREAST: without masses CLOTH FRAMER: Vulva - normal, Vagina - normal - cervix nulliparous, Pap done, Uterus - midplane, adnexa neg ASSESSMENT/PLAN: 1. Encounter for annual routine gynecological examination - ICD9: V72.31, ICD10: Z01.419 (primary diagnosis) - Completed pelvic and breast exam - Encouraged monthly BSE - Follow up for annual exam in one year. 2. Abnormal uterine bleeding due to endometrial polyp - ICD9: 626.6, 621.0, ICD10: N93.9, N84.0 -- Refer to Dr. Keith 3. Encounter for Papanicolaou smear for cervical cancer screening - ICD9: V76.2, ICD10: Z12.4 - Completed pelvic and breast exam - Encouraged monthly BSE - Follow up for annual exam in one year. Renny Fairchild MD [facility] History of Present illness Narrative* Nicole Weber RT(R) - 07/15/2024 5:00 PM EDT Radiology Service Progress Note PATIENT NAME: Iban Rider DATE OF SERVICE: July 15, 2024 TIME: 5:27 PM PATIENT IDENTITY VERIFICATION COMPLETED USING TWO (2) IDENTIFIERS: Name and Date of confirmedby patient verbally. FALL SCREENING: Has the patient had 2 falls in the last year or 1 fall with injury or currently using an Ambulatory Assistive Device (Walker, Cane, Wheelchair, Crutches, etc.)? No PATIENT GENDER DATA: Female. status: : No status: NO. PATIENT RELEVANT IMPLANT DATA REVIEWED: Yes PATIENT PRESENTS WITH AN IMPLANTABLE OR ATTACHED AWNING ASSEMBLER: No RADIOLOGY DEPARTMENT: Ultrasound PERIPHERAL IV DATA: Not applicable SIGNED BY: Nicole Weber RDMS, RVT July 15, 2024 5:27 PM documented in [facility] encounter[facility]10-28-[facility]24 NoteHNO ID: [id number] Author: NICOLE WEBER RT(R) Service: ? Author Type: Technologist Type: Progress Notes Filed: 07/15/2024 17:28 Note Text: Radiology Service Progress Note PATIENT NAME: Iban Rider DATE OF SERVICE: July 15, 2024 TIME: 5:27 PM PATIENT IDENTITY VERIFICATION COMPLETED USING TWO (2) IDENTIFIERS: Name and Date of confirmed by patient verbally. FALL SCREENING: Has the patient had 2 falls in the last year or 1 fall with injury or currently using an Ambulatory Assistive Device (Walker, Cane, Wheelchair, Crutches, etc.)? No PATIENT GENDER DATA: Female. status: : No status: NO. PATIENT RELEVANT IMPLANT DATA REVIEWED: Yes PATIENT PRESENTS WITH AN IMPLANTABLE OR ATTACHED AWNING ASSEMBLER: No RADIOLOGY DEPARTMENT: Ultrasound PERIPHERAL IV DATA: Not applicable SIGNED BY: Nicole Weber RDMS, RVT July 15, 2024 5:27 [facility]09-26-2024 Telephone encounter Note* Telephone Encounter - Jacque Josue LPN - 06/13/2024 8:56 AM EDT Patient requesting to go over ultrasound results. External documents added 06/12/24. Jacque Josue LPN [facility]09-26-2024 Miscellaneous Notes* Telephone Encounter - Jacque Josue LPN - 06/13/2024 8:56 AM EDT Patient requesting to go over ultrasound results. External documents added 06/12/24. Jacque Josue LPN documented in [facility] encounterProv[facility]09-[facility]-2024 History and physical note * Renny Fairchild MD - 05/27/2024 8:33 AM EDT Patient here to discuss periods. Having brownish discharge usually at end of cycle. Discussed with patient. Will get ultrasound for endometrial thickening and if normal will observe. Patient in agreement. Impression -- menometrorrhagia Plan ultrasound. Renny Fairchild MD [facility]09-09-2024 History and physical note* Renny Fairchild MD - 05/27/2024 8:33 AM EDT Patient here to discuss periods. Having brownish discharge usually at end of cycle. Discussed with patient. Will get ultrasound for endometrial thickening and if normal will observe. Patient in agreement. Impression -- menometrorrhagia Plan ultrasound. Renny Fairchild MD [facility] encounter[facility]05-[facility]24 Telephone encounter Note * Telephone Encounter - Alirio Conteh RN - 01/23/2024 8:[address] Antony's office called asking for pt's most recent pap test results to be faxed to [phone]. Done. Alirio Conteh RN [facility]05-07-2024 Miscellaneous Notes* Telephone Encounter - Alirio Conteh RN - 01/23/2024 8:[address] Antony's office called asking for pt's most recent pap test results to be faxed to [phone]. Done. Alirio Conteh RN documented in this encounterProv[facility]04-26-2023 Miscellaneous Notes* Telephone Encounter - Alirio Conteh RN - 01/11/2023 1:34 PM EDT LVM on nurse line that she needs an US order. RN called pt and asked to clarify and she means br USorder. RN told her I would pend an order for Dr Fairchild to sign and she said she will call her PCP to have them do the order. RN re faxed the [facility] order to [phone] per pt request. Alirio Conteh RN documented in this encounterProv[facility] Hospital04-24-2023 Miscellaneous Notes* Telephone Encounter - Denise Titus RN - 01/09/2023 10:58 AM EDT Called in requesting order for mammogram be sent to [facility]. Faxed to [phone]. Denise Titus RN documented in this encounterProvidence Hospital04-19-2023 Miscellaneous Notes* Telephone Encounter - Alriio Conteh RN - 01/04/2023 8:55 AM EDT Called asking for diag [facility] per suggestion from PCP but wanted CLOTH FRAMER to order. Order pended. Thank you, Alirio Conteh RN documented in this encounterProv[facility]10-24-2022 History and physical note * Renny Fairchild MD - 07/11/2022 8:40 AM EDT Iban Rider is a 42 year old [...] mouth once daily. (Patient not taking: No sigreported) No current facility-administered medications for this visit. [...] and pelvic exam BREAST-without masses, FCBD improved CLOTH FRAMER: Vulva - normal, Vagina - normal - [...] bilateral - ICD9: 610.1, ICD10: N60.11, N60.12 Renny Fairchild MD a documented in this encounterProvidence Hospital06-13-2022 Instructions* Patient Instructions* Renny Fairchild MD - 02/28/2022 9:29 AM EDT Please call the office before going to the hospital. If you are , go to the ER at the [facility]. Do not go to the outlying ER s ([place], [place] or [place]). If you need to go to an ER and cannot or will not go downtown, please use one of [facility] s ERs (not [facility], [facility] or [facility]). documented in this encounterProvidence Hospital06-13-2022 History and physical note * Renny Fairchild MD - 02/28/2022 9:24 AM EDT Patient concerned about FCBD. Mammogram normal in October. Discussed SBE. Patient not due for pap until July. Patient notified. Renny Fairchild MD documented in this encounterProvidence Hospital10-18-2021 NoteHNO ID: [id number] Author: Renny Fairchild MD Service: ? Author Type: Physician [...] FCBD bilaterally as before. No discrete lump CLOTH FRAMER: Vulva - normal, [place]'s duct palpable bilaterally. Patient states this has [...] one year. - PAP FLUID CERVICAL SCREENING Renny Fairchild, [facility]09-02-2014 History of Past illness Narrative* Problem Noted Date Resolved Date Lump or mass in breast 05/20/2014 4 Breast mass 02/20/2014 06/17/2014 documented as of this encounter (statuses as of 02/28/2022) [facility] History of Past illness Narrative* Problem Noted Date Resolved Date Lump or mass in breast 05/20/2014 4 Breast mass 02/20/2014 06/17/2014 documented as of this encounter (statuses as of 07/11/2022) [facility] History of Past illness Narrative* Problem Noted Date Resolved Date Lump or mass in breast 05/20/2014 4 Breast mass 02/20/2014 06/17/2014 documented as of this encounter (statuses as of 01/09/2023) [facility] History of Past illness Narrative* Problem Noted Date Resolved Date Lump or mass in breast 05/20/2014 4 Breast mass 02/20/2014 06/17/2014 documented as of this encounter (statuses as of 01/09/2023) [facility] History of Past illness Narrative* Problem Noted Date Resolved Date Lump or mass in breast 05/20/2014 4 Breast mass 02/20/2014 06/17/2014 documented as of this encounter (statuses as of 01/11/2023) [facility] HospitalEvaluation noteNo assessment information availableWKettering Health [facility] Work Phone: Evaluation note* Diagnosis Fibrocystic breast changes, bilateral- Primary documented in this encounter [facility] note* Diagnosis Encounter for annual routine gynecological examination- Primary Encounter for Papanicolaou smear for cervical cancer screening Fibrocystic breast changes, bilateral documented in this encounter [facility] note* Diagnosis Breast screening- Primary Breast screening, unspecified documented in this encounter [facility] note* Diagnosis Menometrorrhagia- Primary Excessive or frequent menstruation documented in this encounter [facility] note* Diagnosis Endometrial thickening on ultrasound- Primary documented in this encounter [facility] note* Diagnosis Menometrorrhagia Excessive or frequent menstruation documented in this encounter [facility] note* Diagnosis Encounter for annual routine gynecological examination- Primary Abnormal uterine bleeding due to endometrial polyp Encounter for Papanicolaou smear for cervical cancer screening documented in this encounter [facility] note* Diagnosis DUB (dysfunctional uterine bleeding)- Primary Other disorder of menstruation and other abnormal bleeding from female genital tract Endometrial polyp Polyp of corpus uteri documented in this encounter [facility] note* Diagnosis Uterine polyp- Primary Polyp of corpus uteri Uterine polyp Polyp of corpus uteri documented in this encounter [facility] for referral (narrative)* Diagnostic Procedure Only (Routine) - Pending Review Specialty Diagnoses / Procedures Referred By Renee singleton Referred To Contact [facility] Diagnoses Breast screening Procedures [facility] DIAGNOSTIC BILATERAL DIAGNOSTIC MAMMOGRAPHY COMPUTER-AIDED DETCJ BI Renny Fairchild MD [address] [place] [address] [facility] [address] [place] [phone] Referral ID Status Reason Start Date Expiration Date Visits Requested Visits Authorized [id number] Pending Review Auto-Generat ed Referral 01/09/2023 02/03/2024 1 1 [facility] for referral (narrative)* Diagnostic Procedure Only (Routine) - New Request Specialty Diagnoses / Procedures Referred By Renee singleton Referred To Contact [facility] Diagnoses Menometrorrhagia Procedures US FEMALE PELVIS TRANSVAG US TRANSVAGINAL Renny Fairchild MD [address] [place] [address] [id number] Referral ID Status Reason Start Date Expiration Date Visits Requested Visits Authorized [id number] New Request Auto-Generat ed Referral 05/27/2024 06/26/2025 1 1 [facility] for referral (narrative)* Diagnostic Procedure Only (Routine) - New Request Specialty Diagnoses / Procedures Referred By Contac t Referred To Contact [facility] Diagnoses Endometrial thickening on ultrasound Procedures US FEMALE PELVIS TRANSVAG US TRANSVAGINAL Pap, Renny Schreiber MD [address] [place] [id number] [place] [address] Referral ID Status Reason Start Date Expiration Date Visits Requested Visits Authorized [id number] New Request Auto-Generat ed Referral 07/31/2025 1 1 [facility] for referral (narrative)No reason for referral information availableWKettering Health Main Campus Work Phone: Reason for visit Narrative* Diagnostic Procedure Only (Routine) - Closed Specialty Diagnoses / Procedures Referred By Contac t Referred To Contact [facility] Diagnoses Menometrorrhagia Procedures US FEMALE PELVIS TRANSVAG US TRANSVAGINAL Devorah, Renny Schreiber MD [address] [place] [id number] [place] [address] Referral ID Status Reason Start Date Expiration Date V isits Requested Visits Authorized [id number] Closed Auto-Generate d Referral OON/Self Pay Override 05/27/2024 06/26/2025 1 1 [facility] Summary Purpose Family History No Family History Records FoundNo Family History Records FoundNo Family History Records FoundNo Family History Records FoundNo Family History Records Found Advance Directives No Advanced Directives Records FoundNo Advanced Directives Records FoundNo Advanced Directives Records FoundNo Advanced Directives Records FoundNo Advanced Directives Records Found Chief Complaint and Reason for Visit Chief Complaint RIGHT/LEFT LUMP IN B REAST Chief Complaint URECTEROCEL Chief Complaint BREAST LUMP Chief Complaint BREAST LUMP HYPOTHYROIDISM Chief Complaint EORDER Chief Complaint EORDER BREAST LUMP BREAST LUMP BREAST LUMPS Chief Complaint LUMP Chief Complaint Admit Date BREAST PAIN December 17, 2024 7:31 am Chief Complaint Admit Date BREAST PAIN December 17, 2024 7:31 am F/U BREAST U/S December 24, 2024 8:34 am EORDERS January 28, 2025 7:49a m Reason for Visit Admit Date Breast lump December 24, 2024 8:34 am Breast pain, left December 24, 2024 8:34 am Chief Complaint Admit Date SCREENING June 03, 2025 4:13pm Additional Source Comments INFORMATION SOURCE (unrecogn ized section and content) DATE CREATED AUTHOR 03/13/2018 [facility] DATE CREATED AUTHOR AUTHOR'S ORGANIZ ATION 11/01/2020 [facility] DATE CREATED AUTHOR AUTHOR'S ORGANIZ ATION 02/28/[address] [facility] DATE CREATED AUTHOR AUTHOR'S ORGANIZ ATION 10/09/2024 [facility] DATE CREATED AUTHOR AUTHOR'S ORGANIZ ATION 06/11/2025 [facility] Goals (unrecognized section and content) Goals may be documented in a n alternate sectionGoals may be documented in an alternate sectionGoals may be documented in an alternate sectionGoals may be documented in an alternate sectionGoals may be documented in an alternate sectionGoals may be documented in an alternate sectionGoals may be documented in an alternate sectionGoals may be documented in an alternate sectionGoals may be documented in an alternate sectionGoals may be documented in an alternate sectionGoals may be documented in an alternate sectionGoals may be documented in an alternate sectionGoals may be documented in an alternate section Source Comments (unrecognize d section and content) In the event this informatio n is protected by the Federal Confidentiality of Alcohol and Drug Abuse Patient Records regulations: The Federal rules restrict any use of the information to criminally investigate or prosecute any alcohol or drug abuse patient.[facility] HospitalIn the event this information is protected by the Federal Confidentiality of Alcohol and Drug Abuse Patient Records regulations: The Federal rules restrict any use of the information to criminally investigate or prosecute any alcohol or drug abuse patient.[facility] HospitalIn the event this information is protected by the Federal Confidentiality of Alcohol and Drug Abuse Patient Records regulations: The Federal rules restrict any use of the information to criminally investigate or prosecute any alcohol or drug abuse patient.[facility] HospitalIn the event this information is protected by the Federal Confidentiality of Alcohol and Drug Abuse Patient Records regulations: The Federal rules restrict any use of the information to criminally investigate or prosecute any alcohol or drug abuse patient.[facility] HospitalIn the event this information is protected by the Federal Confidentiality of Alcohol and Drug Abuse Patient Records regulations: The Federal rules restrict any use of the information to criminally investigate or prosecute any alcohol or drug abuse patient.[facility] HospitalIn the event this information is protected by the Federal Confidentiality of Alcohol and Drug Abuse Patient Records regulations: The Federal rules restrict any use of the information to criminally investigate or prosecute any alcohol or drug abuse patient.[facility] HospitalIn the event this information is protected by the Federal Confidentiality of Alcohol and Drug Abuse Patient Records regulations: The Federal rules restrict any use of the information to criminally investigate or prosecute any alcohol or drug abuse patient.[facility] HospitalIn the event this information is protected by the Federal Confidentiality of Alcohol and Drug Abuse Patient Records regulations: The Federal rules restrict any use of the information to criminally investigate or prosecute any alcohol or drug abuse patient.[facility] HospitalIn the event this information is protected by the Federal Confidentiality of Alcohol and Drug Abuse Patient Records regulations: The Federal rules restrict any use of the information to criminally investigate or prosecute any alcohol or drug abuse patient.[facility] HospitalIn the event this information is protected by the Federal Confidentiality of Alcohol and Drug Abuse Patient Records regulations: The Federal rules restrict any use of the information to criminally investigate or prosecute any alcohol or drug abuse patient.[facility] HospitalIn the event this information is protected by the Federal Confidentiality of Alcohol and Drug Abuse Patient Records regulations: The Federal rules restrict any use of the information to criminally investigate or prosecute any alcohol or drug abuse patient.[facility] HospitalIn the event this information is protected by the Federal Confidentiality of Alcohol and Drug Abuse Patient Records regulations: The Federal rules restrict any use of the information to criminally investigate or prosecute any alcohol or drug abuse patient.[facility] HospitalIn the event this information is protected by the Federal Confidentiality of Alcohol and Drug Abuse Patient Records regulations: The Federal rules restrict any use of the information to criminally investigate or prosecute any alcohol or drug abuse patient.[facility] HospitalIn the event this information is protected by the Federal Confidentiality of Alcohol and Drug Abuse Patient Records regulations: The Federal rules restrict any use of the information to criminally investigate or prosecute any alcohol or drug abuse patient.[facility] HospitalIn the event this information is protected by the Federal Confidentiality of Alcohol and Drug Abuse Patient Records regulations: The Federal rules restrict any use of the information to criminally investigate or prosecute any alcohol or drug abuse patient.[facility] HospitalIn the event this information is protected by the Federal Confidentiality of Alcohol and Drug Abuse Patient Records regulations: The Federal rules restrict any use of the information to criminally investigate or prosecute any alcohol or drug abuse patient.[facility] Reason for Visit (unrecogniz ed section and content) 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 / Procedures Referred By Contac t Referred To Contact SANITARIAN INSPECTOR Diagnoses annual Procedures ESTABLISHED LEVEL 1 VISIT annual Pap, Renny Schreiber MD [address] [place] [id number] Decorating Consultant [employer] [place] [address] [place] [id number] Referral ID Status Reason Start Date Expiration Date Visits Requested Visits Authorized [id number] Pending Review OON/Self Pay Override 02/10/2022 05/11/2022 1 1 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 Menses are becoming irregular,no pain Specialty Diagnoses / Procedures Referred By Contac t Referred To Contact SANITARIAN INSPECTOR Diagnoses annual Procedures annual Pap, Renny Schreiber MD [address] [place] [phone] Decorating Consultant [place] [address] Referral ID Status Reason Start Date Expiration Date Visits Requested Visits Authorized [id number] Pending Review OON/Self Pay Override 05/31/2022 07/30/2022 1 1 Reason Comments Orders Reason Comments Patient Question Reason Comments Orders Reason Comments Results Lead Nurse - Other Reason Comments Vaginal Discharge Discharge after luis ods Specialty Diagnoses / Procedures Referred By Contac t Referred To Contact SANITARIAN INSPECTOR Diagnoses Est Pt, Spotting, Bloody discharge; Est Pt, Annual Procedures Est Pt, Spotting, Bloody discharge; Est Pt, Annual Pap, Renny Schreiber MD [address] [place] [phone] Decorating Consultant [place] [address] Referral ID Status Reason Start Date Expiration Date Visits Requested Visits Authorized [id number] Incomplete OON/Self Pay Override 05/21/2024 08/29/2025 2 2 Reason Comments Results Reason Comments Yearly Exam Specialty Diagnoses / Procedures Referred By Contac t Referred To Contact SANITARIAN INSPECTOR Diagnoses annual Procedures OFFICE VISIT, EST PT., LEVEL 2 TC annual Pap, Renny Schreiber MD [address] [place] [id number] Decorating Consultant [facility] [address] [place] [address] Referral ID Status Reason Start Date Expiration Date Visits Requested Visits Authorized [id number] Incomplete OON/Self Pay Override 4 10/03/2024 4 1 Reason Comments Consult Consult D&C Specialty Diagnoses / Procedures Referred By Contabigail t Referred To Contact SANITARIAN INSPECTOR Diagnoses Uterine polyp Procedures ESTAB. PATIENT 3 Thelma Archer MD [address] [place] [address] Decorating Consultant Ag [facility] [address] [place] [address] Referral ID Status Reason Start Date Expiration Date Visits Requested Visits Authorized [id number] Pending Review OON/Self Pay Override 4 11/06/2025 1 1 Reason Comments Preparations For Surgery Production Operations Engineer surgery Care Teams (unrecognized sec tion and content) Engineering Teacher Relationship Specialty Start Date End Date Sarah Antony [address] [facility] [address] [place] [address] PCP - General Family Practice 12/31/18 Engineering Teacher Relationship Specialty Start Date End Date Sarah Antony [address] [facility] [address] [place] [address] PCP - General Family Medicine 12/31/18 Engineering Teacher Relationship Specialty Start Date End Date Sarah Antony [address] [facility] [address] [place] [address] PCP - General Family Medicine 12/31/18 Engineering Teacher Relationship Specialty Start Date End Date Sarah Antony [address] [facility] [address] [place] [address] PCP - General Family Medicine 12/31/18 Team Status: Active Member Role Status Dates Dr. Sarah Antony MD Family Provider Active Dr. Sarah Antony MD Primary Care Provider Active Team Status: Inactive Member Role Status Dates Dr. Sarah Antony MD Primary Care Pr ovider, Attending Provider, Referring Provider Active Team Status: Inactive Member Role Status Dates Dr. Sarah Antony MD Primary Care Provider, Referr ing Provider Active Dr. Maria Elena Moon MD Attending Provider Active Team Status: Active Member Role Status Dates Dr. Sarah Antony MD Primary Care Pr ovider, Attending Provider, Referring Provider Active Team Status: Inactive Member Role Status Dates Dr. Sarah Antony MD Primary Care Provider, Attend ing Provider Active Team Status: Inactive Member Role Status Dates Dr. Sarah Antony MD Primary Care Provider Active Elvira Turner CONTRACT OFFICER-C Attending Provider, Referr ing Provider Active Engineering Teacher Relationship Specialty Start Date End Date Sarah Antony MD [address] [place] [address] PCP - General Family Medicine 12/31/18 Engineering Teacher Relationship Specialty Start Date End Date Sarah Antony MD [address] [place] [address] PCP - General Family Medicine 12/31/18 Engineering Teacher Relationship Specialty Start Date End Date Sarah Antony MD [address] [place] [address] PCP - General Family Medicine 12/31/18 Engineering Teacher Relationship Specialty Start Date End Date Sarah Antony MD [address] [place] [address] PCP - General Family Medicine 12/31/18 Engineering Teacher Relationship Specialty Start Date End Date Sarah Antony MD [address] [place] [address] PCP - General Family Medicine 12/31/18 Engineering Teacher Relationship Specialty Start Date End Date Sarah Antony MD [address] [facility] [address] [place] [address] PCP - General Family Medicine 12/31/18 Engineering Teacher Relationship Specialty Start Date End Date Sarah Antony MD [address] [facility] [address] [place], [place] [id number] PCP - General Family Medicine 12/31/18 Engineering Teacher Relationship Specialty Start Date End Date Sarah Antony MD [address] [facility] [address] [place], [place] [id number] PCP - General [facility] Medicine 12/31/18 Team Status: Active Member Role Status Dates Dr. Sarah Antony MD Primary Care Provider Active Team Status: Inactive Member Role Status Dates Dr. Sarah Antony MD Primary Care Provider Active Start: December 17, 2024 End: December 17, 2024 Sidney Patel CONTRACT OFFICER, CONTRACT OFFICER-C Attending Provider Active Start: December 17, 2024 End: December 17, 2024 Sidney Patel CONTRACT OFFICER, CONTRACT OFFICER-C Referring Provider Active Start: December 17, 2024 End: December 17, 2024 Team Status: Inactive Member Role Status Dates Dr. Sarah Antony MD Primary Care Provider Active Start: December 24, 2024 End: December 24, 2024 Dr. Sarah Antony MD Referring Provider Active Start: December 24, 2024 End: December 24, 2024 Dr. Maria Elena Moon MD Attending Provider Active Start: December 24, 2024 End: December 24, 2024 Team Status: Inactive Member Role Status Dates Dr. Sarah Antony MD Primary Care Provider Active Start: January 28, 2025 End: January 28, 2025 Dr. Sarah Antony MD Attending Provider Active Start: January 28, 2025 End: January 28, 2025 Dr. Sarah Antony MD Referring Provider Active Start: January 28, 2025 End: January 28, 2025 Team Status: Active Member Role/Relationship Status Dates Dr. Sarah Antony MD Primary care physician Active Team Status: Inactive Member Role/Relationship Status Dates Dr. Sarah Antony MD Primary care physician Active Start: June 03, 2025 End: June 03, 2025 Dr. Sarah Antony MD Attending physician Active Start: June 03, 2025 End: June 03, 2025 Dr. Sarah Antony MD Referring Provider Active Start: June 03, 2025 End: June 03, 2025 FOR RECORDS PERTAINING TO PATIENTS WHO ARE [...] BE BASED ON THE PRIMARY CLINICAL RECORDS. [facility] [employer] provides no warranty or guarantee of the accuracy or completeness of information in this document.
[2025-08-06 10:20] LABS: Hematocrit 40.3 % (37-47); Hemoglobin 13.4 g/dL (12.0-15.0); Immature Granulocytes Count 0.030 X10^3/uL (0.0-0.0); Mean Corp Hgb Conc 33.3 g/dL (32-36); Mean Corpuscular Volume 89.4 fL (81-99); Mean Platelet Vol. 9.0 fl (6.2-12.0); NRBC Flagged by Analyzer 0 % (0-5); Platelet Count 300 K/mm3 (150-450); RBC Distribution Width CV 12.4 % (11.6-14.6); RBC Distribution Width SD 40.7 fl (35.1-43.9); Red Blood Count 4.51 M/mm3 (4.2-5.4); White Blood Count 7.9 K/mm3 (4.4-11.0)
[2025-08-06 10:50] LABS: AST(SGOT) 24 U/L (<=31); Alanine Aminotransfer ALT/SGPT 18 U/L (<=34); Albumin, Serum 4.2 g/dL (3.5-5.0); Alkaline Phosphatase 77 U/L (35-104); Anion Gap 10 (5-15); BUN 11 mg/dL (4-19); BUN/Creat Ratio 17.9 RATIO (10-20); Calcium,Total 8.8 mg/dL (7.6-11.0); Carbon Dioxide 22.8 mmol/L (21.0-32.0); Chloride 105 mmol/L (98-108); Globulin 3.1 g/dL (2.2-4.2); Glucose 101 mg/dL (70-99); Potassium 3.9 mmol/L (3.3-5.1); Vitamin D,25 Hydroxy 52.3 ng/mL (30-100)
== END | disposition home or self-care (01) ==
LOC: MTLAB 07:36
PROVIDERS: PCP Family Medicine; Referring Provider Family Medicine; Visit Provider Family Medicine
DX: R73.09 Other abnormal glucose (principal); E03.8 Other specified hypothyroidism
CPT/HCPCS: 36415; 80053; 82306; 83036; 84439; 84443; 85025

== ENCOUNTER → 2025-08-13 | Outpatient (CLI) | payer OTHER, SELFPAY ==
[2025-08-13 10:55] LABS: AST(SGOT) 26 U/L (<=31); Alanine Aminotransfer ALT/SGPT 21 U/L (<=34); Albumin, Serum 4.2 g/dL (3.5-5.0); Alkaline Phosphatase 78 U/L (35-104); Anion Gap 10 (5-15); BUN 13 mg/dL (4-19); BUN/Creat Ratio 19.6 RATIO (10-20); Calcium,Total 8.8 mg/dL (7.6-11.0); Carbon Dioxide 23.2 mmol/L (21.0-32.0); Chloride 107 mmol/L (98-108); Globulin 2.8 g/dL (2.2-4.2); Glucose 96 mg/dL (70-99); Potassium 3.9 mmol/L (3.3-5.1); Vitamin D,25 Hydroxy 51.0 ng/mL (30-100)
[2025-08-13 22:20] LABS: Hematocrit 39.7 % (37-47); Hemoglobin 13.3 g/dL (12.0-15.0); Immature Granulocytes Count 0.030 X10^3/uL (0.0-0.0); Mean Corp Hgb Conc 33.5 g/dL (32-36); Mean Corpuscular Volume 91.5 fL (81-99); Mean Platelet Vol. 9.5 fl (6.2-12.0); NRBC Flagged by Analyzer 0 % (0-5); Platelet Count 307 K/mm3 (150-450); RBC Distribution Width CV 12.4 % (11.6-14.6); RBC Distribution Width SD 41.7 fl (35.1-43.9); Red Blood Count 4.34 M/mm3 (4.2-5.4); White Blood Count 6.5 K/mm3 (4.4-11.0)
== END | disposition home or self-care (01) ==
LOC: MFPLAB 08:22
PROVIDERS: PCP Family Medicine; Visit Provider Family Medicine
DX: E03.8 Other specified hypothyroidism (principal)
CPT/HCPCS: 36415; 80053; 82306; 84439; 84443; 85025